=== PATIENT | male | born 1975 | race American Indian/Alaskan Native ===

== ENCOUNTER 2021-01-03 08:55 | Inpatient (IN) | payer MEDICAID ==
--- NOTE | 2021-01-03 09:44 | Emergency Department Report ---
HPI - General Chief Complaint: Weakness Time Seen by Provider: 01/03/21 09:21 - HPI HPI: 45-year-old male with history of hypertension and ESRD on peritoneal dialysis at home who performs self dialysis presents complaining of [place] 1 day of generalized weakness and lightheadedness. He says that he feels globally weak and also has felt faint as if he is about to pass out. He says he has not syncopized or lost consciousness. He denies any his head. He notes that he has had pain in his left calf/leg for the past few months and apparently some doctor told him he might of had a DVT but he is not on blood thinners and was never placed on blood thinners. He says he has a wound near his left pinky toe which is draining purulent material. He otherwise denies any headache, vision change, back pain, chest pain, shortness of breath, abdominal pain, nausea/vomiting, focal weakness, sensory changes, saddle anesthesia, bowel incontinence/retention, or any other complaints. He received the first dose of the Moderna vaccine back in September but never received a second dose and is unable to explain why. His last dialysis was yesterday. ED Past Medical Hx - Past Medical History Hx Renal Disease: Yes - Social History Smoking Status: Current Every Day Smoker ED Review of Systems ROS: Stated complaint: BODY WEAKNESS Other details as noted in HPI Constitutional: weakness. denies: chills, fever Eyes: denies: eye pain, vision change ENT: denies: throat pain, congestion Respiratory: denies: cough, shortness of breath Cardiovascular: denies: chest pain, palpitations, syncope Gastrointestinal: denies: abdominal pain, nausea, vomiting Musculoskeletal: denies: back pain, arthralgia Skin: lesions, pruritus. denies: rash Neurological: denies: headache, weakness, numbness Psychiatric: denies: anxiety, depression Physical Exam - Physical Exam Vital Signs: Vital Signs 01/03/21 09:16 Temperature 98.2 F Pulse Rate 78 Blood Pressure 118/70 Physical Exam: GENERAL: Well developed and well nourished. No acute distress HEAD: Normocephalic. No obvious signs of trauma. ENT: Moist mucous membranes. EYES: Extraocular movements are intact. Pupils are equal round and reactive to light bilaterally NECK: Supple. Full ROM is intact. Trachea is midline. LUNGS: Nonlabored breathing. Equal chest rise bilaterally. Clear to auscultation bilaterally. CARDIOVASCULAR: Regular rate and rhythm. No murmurs or rubs. VASCULAR: Cap refill < 2 seconds. 1+ edema the bilateral lower extremities. ABDOMEN: Peritoneal dialysis catheter is in place without surrounding skin changes or drainage. Abdomen is soft and nondistended. There is no significant tenderness, guarding or rebound. SKIN: Skin is warm and dry. There is diffuse xerosis of the skin with evidence of excoriations throughout. In the intertriginous region between the fifth and the fourth toes of the left foot there is a small sinus which is not actively draining at this time. There is no erythema or warmth of the foot. There is no crepitus. There is no fluctuance. NEURO: Patient is awake, alert, and oriented but seems confused. 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 No focal deficits. Normal motor and sensory exam throughout. Normal speech. MUSCULOSKELETAL: No obvious deformities. No significant tenderness. Normal ROM throughout. BACK/SPINE: No midline tenderness or step-offs of the C/T/L spine. No costovertebral angle tenderness. ED Course Vital Signs 01/03/21 09:16 Temperature 98.2 F Pulse Rate 78 Blood Pressure 118/70 ED Medical Decision Making - Lab Data Result diagrams: 01/03/21 09:46 01/03/21 09:46 Lab Results 01/03/21 01/03/21 01/03/21 Range/Units 09:46 09:46 09:46 WBC 12.0 H (4.5-11.0) K/mm3 RBC 2.47 L (3.65-5.03) M/mm3 Hgb 6.8 L (11.8-15.2) gm/dl Hct 20.2 L (35.5-45.6) % MCV 82 L (84-94) fl MCH 27 L (28-32) pg MCHC 34 (32-34) % RDW 16.6 H (13.2-15.2) % Plt Count 285 (140-440) K/mm3 Lymph % (Auto) 9.9 L (13.4-35.0) % Iron % (Auto) 4.6 (0.0-7.3) % Eos % (Auto) 1.2 (0.0-4.3) % Baso % (Auto) 0.8 (0.0-1.8) % Lymph # (Auto) 1.2 (1.2-5.4) K/mm3 Iron # (Auto) 0.6 (0.0-0.8) K/mm3 Eos # (Auto) 0.1 (0.0-0.4) K/mm3 Baso # (Auto) 0.1 (0.0-0.1) K/mm3 Seg Neutrophils % 83.5 H (40.0-70.0) % Seg Neutrophils # 10.0 H (1.8-7.7) K/mm3 PT 15.5 H (12.2-14.9) Sec. INR 1.18 H (0.87-1.13) APTT 30.9 (24.2-36.6) Sec. Sodium 137 (137-145) mmol/L Potassium 4.3 (3.6-5.0) mmol/L Chloride 88.1 L (98-107) mmol/L Carbon Dioxide 21 L (22-30) mmol/L Anion Gap 32 mmol/L BUN 97 H (9-20) mg/dL Creatinine 24.3 H (0.8-1.3) mg/dL Estimated GFR 2 ml/min BUN/Creatinine Ratio 4 % Glucose 126 H (75-100) mg/dL Calcium 10.1 (8.4-10.2) mg/dL Magnesium 2.70 H (1.7-2.3) mg/dL Total Bilirubin 0.40 (0.1-1.2) mg/dL Direct Bilirubin < 0.2 (0-0.2) mg/dL Indirect Bilirubin 0.2 mg/dL AST 17 (5-40) units/L ALT 8 (7-56) units/L Alkaline Phosphatase 67 (35-129) units/L Ammonia (25-60) umol/L Troponin T 1.710 H* (0.00-0.029) ng/mL Total Protein 7.3 (6.3-8.2) g/dL Albumin 3.4 L (3.9-5) g/dL Albumin/Globulin Ratio 0.9 % Triglycerides 286 H (2-149) mg/dL Cholesterol 242 H (50-199) mg/dL LDL Cholesterol Direct 135 H (50-130) mg/dL HDL Cholesterol < 3 L (40-59) mg/dL Cholesterol/HDL Ratio 80.00 % Lipase 80 H (13-60) units/L Salicylates (2.8-20.0) mg/dL Acetaminophen (10.0-30.0) ug/mL 01/03/21 01/03/21 01/03/21 Range/Units 09:46 09:46 09:46 WBC (4.5-11.0) K/mm3 RBC (3.65-5.03) M/mm3 Hgb (11.8-15.2) gm/dl Hct (35.5-45.6) % MCV (84-94) fl MCH (28-32) pg MCHC (32-34) % RDW (13.2-15.2) % Plt Count (140-440) K/mm3 Lymph % (Auto) (13.4-35.0) % Iron % (Auto) (0.0-7.3) % Eos % (Auto) (0.0-4.3) % Baso % (Auto) (0.0-1.8) % Lymph # (Auto) (1.2-5.4) K/mm3 Iron # (Auto) (0.0-0.8) K/mm3 Eos # (Auto) (0.0-0.4) K/mm3 Baso # (Auto) (0.0-0.1) K/mm3 Seg Neutrophils % (40.0-70.0) % Seg Neutrophils # (1.8-7.7) K/mm3 PT (12.2-14.9) Sec. INR (0.87-1.13) APTT (24.2-36.6) Sec. Sodium (137-145) mmol/L Potassium (3.6-5.0) mmol/L Chloride (98-107) mmol/L Carbon Dioxide (22-30) mmol/L Anion Gap mmol/L BUN (9-20) mg/dL Creatinine (0.8-1.3) mg/dL Estimated GFR ml/min BUN/Creatinine Ratio % Glucose (75-100) mg/dL Calcium (8.4-10.2) mg/dL Magnesium (1.7-2.3) mg/dL Total Bilirubin (0.1-1.2) mg/dL Direct Bilirubin (0-0.2) mg/dL Indirect Bilirubin mg/dL AST (5-40) units/L ALT (7-56) units/L Alkaline Phosphatase (35-129) units/L Ammonia 11.0 L (25-60) umol/L Troponin T (0.00-0.029) ng/mL Total Protein (6.3-8.2) g/dL Albumin (3.9-5) g/dL Albumin/Globulin Ratio % Triglycerides (2-149) mg/dL Cholesterol (50-199) mg/dL LDL Cholesterol Direct (50-130) mg/dL HDL Cholesterol (40-59) mg/dL Cholesterol/HDL Ratio % Lipase (13-60) units/L Salicylates < 0.3 L (2.8-20.0) mg/dL Acetaminophen < 5.0 L (10.0-30.0) ug/mL - EKG Data -: EKG Interpreted by Me - EKG Data 01/03/21 17:16 Normal sinus rhythm. Normal axis. Normal intervals. No ectopy. LVH with se condary repolarization abnormalities. There is no significant ST segment or T wave abnormalities - Radiology Data CHEST 1 VIEW 01/03/2021 9:48 AM INDICATION / CLINICAL INFORMATION: weakness. COMPARISON: None available. FINDINGS: SUPPORT DEVICES: None. HEART / MEDIASTIN UM: No significant abnormality. LUNGS / PLEURA: No significant pulmonary or pleural abnormality. No pneumothorax. ADDITIONAL FINDINGS: No significant additional findings. IMPRESSION: 1. No acute findings. Signer Name: Logan Wei DO Signed: 01/03/2021 9:49 AM Workstation Name: [id number] CT head/brain wo con INDICATION: weakness, confusion. TECHNIQUE: All CT scans at this location are performed using CT dose reduction for ALARA by means of automated exposure control. COMPARISON: None available. FINDINGS: There is no evidence of hemorrhage, hydrocephalus, brain edema, or mass effect/mass lesion. There is a chronic left ALONSO territory infarct. There is mild global atrophy greater than expected for the patient's age. The included paranasal sinuses and mastoid air cells are clear. The orbits appear unremarkable. IMPRESSION: 1. No acute findings. Signer Name: Roger Silva MD Signed: 01/03/2021 9:38 AM Workstation Name: [id number] LEFT FOOT 2 VIEWS INDICATION: wound, eval for gas. COMPARISON: None. IMPRESSION: No acute osseous or soft tissue abnormality. No soft tissue gas is detected. Moderate osteoarthritic changes are noted at the first metatarsophalangeal joint. There are diffuse vascular calcifications suggesting peripheral vascular disease. Signer Name: Abdirahman Montoya Jr, MD Signed: 01/03/2021 9:52 AM Workstation Name: [id number] DUPLEX DOPPLER LOWER EXTREMITY VEINS, BILATERAL INDICATION / CLINICAL INFORMATION: Possible DVT, bilateral lower extremity pain. TECHNIQUE: Duplex doppler imaging was performed through the veins of both lower extremities using venous compression and other maneuvers. COMPARISON: None available. FINDINGS: RIGHT COMMON FEMORAL VEIN: Negative. RIGHT FEMORAL VEIN: Negative. RIGHT POPLITEAL VEIN: Negative. RIGHT CALF VEINS: Negative. LEFT COMMON FEMORAL VEIN: Negative. LEFT FEMORAL VEIN: Negative. LEFT POPLITEAL VEIN: Negative. LEFT CALF VEINS: Negative. ADDITIONAL FINDINGS: None. IMPRESSION: 1. No sonographic evidence for DVT in either lower extremity. Signer Name: Fernie Fish MD Signed: 01/03/2021 12:36 PM Workstation Name: [id number] - Medical Decision Making 45-year-old male with history of ESRD on peritoneal dialysis presents complaining of 1 day of generalized weakness and lightheadedness. Patient feels faint but has not syncopized. Initial assessment he is afebrile and with normal vital signs. Although the patient is alert and oriented x4 he does seem confused. Physical examination reveals no abdominal tenderness and the peritoneal dialysis catheter is in place without surrounding erythema or drainage of the insertion site. Is 1+ pitting edema of the bilateral lower extremities. He is noted to have his diffuse xerosis of the skin with obvious excoriations which I suspect is related to his chronic kidney disease. To the intertriginous region between the fourth and fifth digits of the left pinky is a small sinus which is not actively drain in at this time. There is no erythema, warmth, or fluctuance and no crepitus of the foot. We will perform broad work- up with a full set of labs, EKG, chest x-ray, and CT of the head. We will also obtain bilateral venous ultrasounds to assess for evidence of DVT. We will obtain x-ray of the left foot to assess for evidence of gas or any other abnormalities to explain the patient's intertriginous sinus. At 10:23 AM, the patient's labs have partially resulted and are significant for white blood cell count of 12.0 and anemia with hemoglobin of 6.8. He is noted to have elevated BUN of 97 but his creatinine has not yet returned. After this finding I went and reassessed the patient and his vitals remained stable. I asked further questions regarding the patient's stool and he does confirm that he has had dark tarry stools for the past few days. Rectal exam was performed with Robbie the nurse present as a drain cleaner plumber and reveals grossly melanotic stool which is Hemoccult positive. Given suspicion for GI bleed I have ordered 80 mg of IV Protonix and consulted GI. At 10:55 AM, the patient is resting comfortably in the bed. At 11:10 AM, the patient's labs are notable for positive troponin of 1.7. Patient's EKG shows only LVH associated changes but given this high troponin value, even in the face of ESRD on dialysis, we will consult cardiology for further recommendations. The patient's creatinine is significantly elevated at 24.3 with BUN of 97. I suspect that his mental status change and lightheadedness may be a result of his uremia. I asked the patient again and he confirmed that he has not had any chest pain, shortness of breath, palpitations, nausea/vomiting. At 11:13 AM I spoke with Dr. Sosa of gastroenterology regarding the case. He recommends proceeding with transfusion of 1 unit of PRBCs and will see the patient. Transfusion orders placed. Consult order placed. At 11:25 AM I spoke with Skip Sheldon, the PA for Dr. Blevins regarding the case. He personally reviewed the EKG and agrees with my interpretation. Consult order has been placed. At 11:30 AM I spoke with Dr. Mejia of nephrology regarding the case. He states that the patient has an issue with compliance with his home peritoneal dialysis and he suspects this may be a contributing factor given his uremia and greatly elevated creatinine. He says he will place further orders for the patient. Consult order has been placed. CT of the head reveals no acute abnormality. Chest x-ray is clear. X-ray of the left foot reveals no evidence of gas or injury. Bilateral DVT ultrasounds are negative. At 11:42 AM I spoke with Dr. Garrett, the on-call hospitalist regarding the case and he accepts the patient for admission and will assume care. I spoke with Dr. Blevins around 12:15 PM. He has reviewed the EKG and the case and states that although the patient's troponin is very high, he does not recommend heparinization at this time given that we suspect the patient has a GI bleed. Consult order has been placed. They will provide further inpatient recommendations. All of the diagnostic findings were discussed with the patient as well as the plan for admission for further work-up and management. He expressed understanding agreement with the plan of care. Critical Care Time: Yes Critical care time in (mins) excluding proc time.: 80 Critical care attestation.: If time is entered above; I have spent that time in minutes in the direct care of this critically ill patient, excluding procedure time. Critical care time was spent in the evaluation, work-up, and management of critical anemia and GI bleed requiring blood transfusion, NSTEMI with elevated troponin requiring consultation and discussion between multiple specialists, and critical uremia with acute on chronic renal failure requiring consultation between multiple specialists and initiation of peritoneal dialysis as well as multiple reassessments and reevaluations. ED Disposition Clinical Impression: NSTEMI (non-ST elevated myocardial infarction), End-stage renal disease on peritoneal dialysis, Uremia, Draining cutaneous sinus tract, Left foot pain GI bleed Qualifiers: GI bleed type/associated pathology: melena Qualified Code(s): K92.1 - Melena Anemia Qualifiers: Anemia type: unspecified type Qualified Code(s): D64.9 - Anemia, unspecified Disposition: 09 OP ADMIT IP TO THIS HOSP Is pt being admited?: Yes Condition: Serious
[2021-01-03 10:02] LABS: Basophils # (Auto) 0.1 K/mm3 (0.0-0.1); Basophils % (Auto) 0.8 % (0.0-1.8); Eosinophils # (Auto) 0.1 K/mm3 (0.0-0.4); Eosinophils % (Auto) 1.2 % (0.0-4.3); Hematocrit 20.2 % (35.5-45.6); Hemoglobin 6.8 gm/dl (11.8-15.2); Lymphocytes # (Auto) 1.2 K/mm3 (1.2-5.4); Lymphocytes % (Auto) 9.9 % (13.4-35.0); Mean Corpuscular HGB Conc 34 % (32-34); Mean Corpuscular Volume 82 fl (84-94); Monocytes # (Auto) 0.6 K/mm3 (0.0-0.8); Monocytes % (Auto) 4.6 % (0.0-7.3); Platelet Count 285 K/mm3 (140-440); Red Blood Count 2.47 M/mm3 (3.65-5.03); Red Cell Distribution Width 16.6 % (13.2-15.2)
[2021-01-03 10:20] LABS: Alanine Aminotransferase 8 units/L (7-56); Albumin 3.4 g/dL (3.9-5); Blood Urea Nitrogen 97 mg/dL (9-20); Calcium 10.1 mg/dL (8.4-10.2); Hemolysis Index 2
[2021-01-03 10:21] LABS: INR 1.18 (0.87-1.13); Partial Thromboplastin Time 30.9 Sec. (24.2-36.6)
--- NOTE | 2021-01-03 10:43 | Cat Scan Report ---
CT head/brain wo con INDICATION: weakness, confusion. TECHNIQUE: All CT scans at this location are performed using CT dose reduction for ALARA by means of automated e xposure control. COMPARISON: None available. FINDINGS: There is no evidence of hemorrhage, hydrocephalus, brain edema, or mass effect/mass lesion. There is a chronic left ALONSO territory infarct. There is mild global atrophy greater than expected for the hanh ent's age. The included paranasal sinuses and mastoid air cells are clear. The orbits appear unremark able. IMPRESSION: 1. No acute findings. Signer Name: Roger Silva MD Signed: 01/03/2021 10:38 AM Workstation Name: [id number]
[2021-01-03] MEDS ORDERED: PANTOPRAZOLE 40 MG INJ IV ONE ×2 (10:44→13:56)
--- NOTE | 2021-01-03 10:54 | XRay Report ---
CHEST 1 VIEW 01/03/2021 9:48 AM INDICATION / CLINICAL INFORMATION: weakness. COMPARISON: None available. FINDINGS: SUPPORT DEVICES: None. HEART / MEDIASTINUM: No significant abnormality. LUNGS / PLEURA: No significant pulmonary or pleural abnormality. No pneumothorax. ADDITIONAL FINDINGS: No significant additional findings. IMPRESSION: 1. No acute findings. Signer Name: Logan Wei DO Signed: 01/03/2021 10:49 AM Workstation Name: [id number]
--- NOTE | 2021-01-03 10:56 | XRay Report ---
LEFT FOOT 2 VIEWS INDICATION: wound, eval for gas. COMPARISON: None. IMPRESSION: No acute osseous or soft tissue abnormality. No soft tissue gas is detected. Moderate osteoarthritic changes are noted at the first metatarsophalangeal joint. There are diffuse vascular calcifications suggesting peripheral vascular disease. Signer Name: Abdirahman Montoya Jr, MD Signed: 01/03/2021 10:52 AM Workstation Name: [id number]
[2021-01-03 11:10] LABS: BUN/Creatinine Ratio 4; Bilirubin,Direct < 0.2 mg/dL (0-0.2)
[2021-01-03] MEDS ORDERED: SODIUM CHLORIDE 0.9% 500 ML 500 ML IV ONE (11:12)
[2021-01-03 11:26] LABS: LDL Cholesterol,Direct 135 mg/dL (50-130)
[2021-01-03 11:38] LABS: HDL Cholesterol < 3 mg/dL (40-59)
--- NOTE | 2021-01-03 11:43 | History and Physical Report ---
History of Present Illness Chief complaint: I have not been feeling good lately History of present illness: 45 YO Male with HTN, ESRD on Peritoneal Dialysis, Nicotine Dependence presents to ED for evaluation. Patient reports "I have not been feeling good lately". Patient states that he has experienced generalized weakness, lightheadedness, and feeling as though he were about to pass out over the past 1 day. Patient also reports left foot soreness. EMS was notified and upon arrival the patient was found to be in distress and subsequently transported to [facility] for further care and evaluation of the aforementioned symptoms. The patient was seen and evaluated in the emergency department. All lab and imaging studies reviewed. Patient found to have end-stage renal disease in need of peritoneal dialysis, systemic inflammatory response syndrome, as well as presyncope. Patient also found to have elevated cardiac enzymes which is consistent with type II non-ST elevation TN. Cardiology team consulted in ED. Patient treated with IV fluid resuscitation therapy and empiric IV antibiotic therapy. Patient placed in observation status and admitted to telemetry. Patient denies fever, chills, chest pain, palpitation, productive cough, skin rash, recent ill contacts, or known exposure to COVID-19. No prior admission for review. No medication listed at time of admission for reconciliation. Past History Past Medical History: ESRD, hypertension Past Surgical History: Other (Peritoneal dialysis catheter placement) Social history: smoking Family history: hypertension Medications and Allergies Allergies Allergy/AdvReac Type Severity Reaction Status Date / Time No Known Allergies Allergy Unverified 01/03/21 10:34 Review of Systems Constitutional: weakness, no weight loss, no weight gain, no fever, no chills Ears, nose, mouth and throat: no ear pain, no ear discharge, no tinnitis, no nose pain Cardiovascular: no chest pain, no orthopnea, no palpitations, no rapid/irregular heart beat Respiratory: no cough, no excessive sputum, no hemoptysis Gastrointestinal: no abdominal pain, no nausea, no vomiting, no diarrhea, no constipation Genitourinary Male: no hematuria, no flank pain, no discharge, no urinary frequency, no urinary hesitancy Rectal: no pain, no incontinence, no bleeding Musculoskeletal: no neck stiffness, no neck pain, no low back pain, no shooting leg pain Integumentary: no rash, no redness, no sores, no wounds, no jaundice, no boils Neurological: no head injury, no numbness, no tingling, no seizures, no tremors Psychiatric: no anxiety, no change in sleep habits, no insomnia, no change in appetite, no suicidal ideation, no disorientation Endocrine: no cold intolerance, no polyphagia, no polydipsia, no nocturia, no excessive sweating, no weight change Hematologic/Lymphatic: no easy bruising, no lymphadenopathy Allergic/Immunologic: no urticaria, no allergic rhinitis, no persistent infections, no anaphylaxis Exam - Constitutional Vitals: Temp Pulse Resp BP Pulse Ox 98.2 F 76 18 117/70 100 01/03/21 09:16 01/03/21 10:01 01/03/21 10:32 01/03/21 10:01 01/03/21 10:32 General appearance: Present: mild distress, cachectic - EENT Eyes: Present: PERRL ENT: hearing intact, clear oral mucosa - Neck Neck: Present: supple, normal ROM - Respiratory Respiratory effort: normal Respiratory: bilateral: CTA - Cardiovascular Heart Sounds: Present: S1 & S2. Absent: rub, click - Extremities Extremities: pulses symmetrical, No edema Peripheral Pulses: within normal limits - Abdominal General gastrointestinal: Present: soft, non-tender, non-distended, normal bowel sounds Male genitourinary: Present: normal - Integumentary Integumentary: Present: clear, warm, dry - Musculoskeletal Musculoskeletal: gait normal, strength equal bilaterally - Psychiatric Psychiatric: appropriate mood/affect, intact judgment & insight - Neurologic Neurologic: CNII-XII intact, moves all extremities HEART Score - HEART Score Troponin: Troponin T 1.710 ng/mL (0.00-0.029) H* 01/03/21 09:46 Results - Labs CBC & Chem 7: 01/03/21 09:46 01/03/21 09:46 Labs: Abnormal lab results 01/03/21 01/03/21 01/03/21 Range/Units 09:46 09:46 09:46 WBC 12.0 H (4.5-11.0) K/mm3 RBC 2.47 L (3.65-5.03) M/mm3 Hgb 6.8 L (11.8-15.2) gm/dl Hct 20.2 L (35.5-45.6) % MCV 82 L (84-94) fl MCH 27 L (28-32) pg RDW 16.6 H (13.2-15.2) % Lymph % (Auto) 9.9 L (13.4-35.0) % Seg Neutrophils % 83.5 H (40.0-70.0) % Seg Neutrophils # 10.0 H (1.8-7.7) K/mm3 PT 15.5 H (12.2-14.9) Sec. INR 1.18 H (0.87-1.13) Chloride 88.1 L (98-107) mmol/L Carbon Dioxide 21 L (22-30) mmol/L BUN 97 H (9-20) mg/dL Creatinine 24.3 H (0.8-1.3) mg/dL Glucose 126 H (75-100) mg/dL Magnesium 2.70 H (1.7-2.3) mg/dL Ammonia (25-60) umol/L Troponin T 1.710 H* (0.00-0.029) ng/mL Albumin 3.4 L (3.9-5) g/dL Triglycerides 286 H (2-149) mg/dL Cholesterol 242 H (50-199) mg/dL LDL Cholesterol Direct 135 H (50-130) mg/dL HDL Cholesterol < 3 L (40-59) mg/dL Lipase 80 H (13-60) units/L Salicylates (2.8-20.0) mg/dL Acetaminophen (10.0-30.0) ug/mL 01/03/21 01/03/21 01/03/21 Range/Units 09:46 09:46 09:46 WBC (4.5-11.0) K/mm3 RBC (3.65-5.03) M/mm3 Hgb (11.8-15.2) gm/dl Hct (35.5-45.6) % MCV (84-94) fl MCH (28-32) pg RDW (13.2-15.2) % Lymph % (Auto) (13.4-35.0) % Seg Neutrophils % (40.0-70.0) % Seg Neutrophils # (1.8-7.7) K/mm3 PT (12.2-14.9) Sec. INR (0.87-1.13) Chloride (98-107) mmol/L Carbon Dioxide (22-30) mmol/L BUN (9-20) mg/dL Creatinine (0.8-1.3) mg/dL Glucose (75-100) mg/dL Magnesium (1.7-2.3) mg/dL Ammonia 11.0 L (25-60) umol/L Troponin T (0.00-0.029) ng/mL Albumin (3.9-5) g/dL Triglycerides (2-149) mg/dL Cholesterol (50-199) mg/dL LDL Cholesterol Direct (50-130) mg/dL HDL Cholesterol (40-59) mg/dL Lipase (13-60) units/L Salicylates < 0.3 L (2.8-20.0) mg/dL Acetaminophen < 5.0 L (10.0-30.0) ug/mL Assessment and Plan - Patient Problems (1) NSTEMI (non-ST elevated myocardial infarction) Current Visit: Yes Status: Acute Plan to address problem: Type II NSTEMI: Cardiology team consulted in ED, serial cardiac enzymes, EKG, echocardiogram, supportive care, further care and evaluation as per cardiology team. (2) End-stage renal disease on peritoneal dialysis Current Visit: Yes Status: Chronic Plan to address problem: Nephrology team consulted in ED, dialysis as per renal team, avoid nephrotoxic agent. (3) Left foot pain Current Visit: Yes Status: Acute Plan to address problem: X-ray left foot, wound care consult placed in ED. Patient counseled regarding personal hygiene as well as foot care. (4) General weakness Current Visit: Yes Status: Acute Plan to address problem: Supportive care, encourage increased protein intake. (5) Malnutrition of moderate degree (Lee: 60% to less than 75% of standard weight) Current Visit: Yes Status: Acute Plan to address problem: Increase her protein intake, dietary segmentation. (6) DVT prophylaxis Current Visit: Yes Status: Acute Plan to address problem: SCDs bilateral lower extremities while in bed, patient is ambulatory.
[2021-01-03] MEDS ORDERED: ALBUTEROL 2.5 MG/3 ML NEBU IH PRN (13:00)
[2021-01-03] MEDS ORDERED: oxyCODONE /ACETAMINOPHEN 5-325MG TAB PO PRN (13:00)
[2021-01-03] MEDS ORDERED: ACETAMINOPHEN 325 MG TAB PO PRN (13:00)
[2021-01-03] MEDS ORDERED: HYDROmorphone 1 MG/1 ML INJ IV PRN (13:00)
--- NOTE | 2021-01-03 13:41 | Vascular Lab Report ---
DUPLEX DOPPLER LOWER EXTREMITY VEINS, BILATERAL INDICATION / CLINICAL INFORMATION: Possible DVT, bilateral lower extremity pain. TECHNIQUE: Duplex doppler imaging was performed through the veins of both lower extremities using venous selam raissa and other maneuvers. COMPARISON: None available. FINDINGS: RIGHT COMMON FEMORAL VEIN: Negative. RIGHT FEMORAL VEIN: Negative. RIGHT POPLITEAL VEIN: Negative. RIGHT CALF VEINS: Negative. LEFT COMMON FEMORAL VEIN: Negative. LEFT FEMORAL VEIN: Negative. LEFT POPLITEAL VEIN: Negative. LEFT CALF VEINS: Negative. ADDITIONAL FINDINGS: None. IMPRESSION: 1. No sonographic evidence for DVT in either lower extremity. Signer Name: Fernie Fish MD Signed: 01/03/2021 1:36 PM Workstation Name: [id number]
[2021-01-03] MEDS ORDERED: SODIUM CHLORIDE 0.9% 500 ML 500 ML ONE (13:54)
[2021-01-03] MEDS ORDERED: ONDANSETRON 4 MG/2 ML INJ IV PRN (14:00)
--- NOTE | 2021-01-03 14:23 | Consultation ---
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 He is previously unknown to our practice. Patient presents to [facility] ER with chief complaint of left foot tingling patient states was similar to his previous CVA event patient does report splinter/injury to fifth tarsal of left foot. Initial labs revealed severe anemia (hemoglobin 6.8). Patient endorses black tarry stools and bright red blood per rectum over past several days. Cardiology is consulted for NSTEMI/elevated troponins. Patient has no cardiac complaints. Patient denies any loss of consciousness. Patient denies any shortness of breath, chest pain, abdominal pain, N/V/D, recent illness or known exposures. Patient states last dialysis was yesterday, he performs peritoneal dialysis at home every day. He endorses tobacco use half pack per day, denies EtOH or recreational drugs. He has received first dose of Covid vaccine series. Past History Past Medical History: other (see HPI) Medications and Allergies Allergies Allergy/AdvReac Type Severity Reaction Status Date / Time No Known Allergies Allergy Unverified 01/03/21 10:34 Active Meds: Active Medications Acetaminophen (Acetaminophen 325 Mg Tab) 650 mg PO Q4H PRN PRN Reason: Pain MILD(1-3)/Fever >100.5/BARRERA Albuterol (Albuterol 2.5 Mg/3 Ml Nebu) 2.5 mg IH Q4HRT PRN PRN Reason: Shortness Of Breath Hydromorphone HCl (Hydromorphone 1 Mg/1 Ml Inj) 0.5 mg IV Q12H PRN PRN Reason: Pain , Severe (7-10) Ondansetron HCl (Ondansetron 4 Mg/2 Ml Inj) 4 mg IV Q8H PRN PRN Reason: Nausea And Vomiting Oxycodone/Acetaminophen (Oxycodone /Acetaminophen 5-325mg Tab) 1 tab PO Q12H PRN PRN Reason: Pain, Moderate (4-6) Sodium Chloride (Sodium Chloride 0.9% 10 Ml Flush Syringe) 10 ml IV BID SHI Sodium Chloride (Sodium Chloride 0.9% 10 Ml Flush Syringe) 10 ml IV PRN PRN PRN Reason: LINE FLUSH Review of Systems Constitutional: no weight loss, no weight gain, no fever, no chills, no sweats, no night sweats Ears, nose, mouth and throat: no ear pain, no nose pain, no nasal congestion, no nasal discharge Cardiovascular: lightheadedness, no chest pain, no orthopnea, no palpitations, no rapid/irregular heart beat, no edema, no syncope, no shortness of breath, no dyspnea on exertion, no paroxysmal nocturnal dyspnea Respiratory: no cough, no hemoptysis, no shortness of breath, no dyspnea on exertion Gastrointestinal: no abdominal pain, no nausea, no vomiting, no diarrhea Genitourinary Male: no flank pain Musculoskeletal: leg numbness/tingling, no neck stiffness, no neck pain, no shooting arm pain, no arm numbness/tingling, no low back pain, no shooting leg pain Integumentary: sores (Patient reports purulent discharge from wound in foot), wounds, no rash, no pruritis, no redness Neurological: weakness, no head injury, no paralysis, no parathesias, no numbness, no tingling, no seizures, no syncope Psychiatric: no anxiety Endocrine: no cold intolerance, no heat intolerance Hematologic/Lymphatic: no easy bruising, no easy bleeding Allergic/Immunologic: no urticaria Physical Examination Last Vital Signs Temp 98.2 F 01/03/21 09:16 Pulse 78 01/03/21 13:01 Resp 15 01/03/21 13:01 BP 116/74 01/03/21 13:01 Pulse Ox 100 01/03/21 13:01 General appearance: no acute distress HEENT: Positive: PERRL, Normocephaly, Mucus Membranes Moist Neck: Positive: neck supple, trachea midline Cardiac: Positive: Reg Rate and Rhythm, S1/S2 Lungs: Positive: Normal Exam, Normal Breath Sounds Neuro: Positive: Grossly Intact, Weakness Abdomen: Positive: Unremarkable, Soft Skin: Negative: Rash Musculoskeletal: No Pain Extremities: Present: upper extr. pulses, lower extr. pulses. Absent: edema Results 01/03/21 09:46 01/03/21 09:46 Cardiac Enzymes 01/03/21 Range/Units 09:46 AST 17 (5-40) units/L Coagulation 01/03/21 Range/Units 09:46 PT 15.5 H (12.2-14.9) Sec. INR 1.18 H (0.87-1.13) APTT 30.9 (24.2-36.6) Sec. Lipids 01/03/21 Range/Units 09:46 Triglycerides 286 H (2-149) mg/dL Cholesterol 242 H (50-199) mg/dL HDL Cholesterol < 3 L (40-59) mg/dL Cholesterol/HDL Ratio 80.00 % CBC 01/03/21 Range/Units 09:46 WBC 12.0 H (4.5-11.0) K/mm3 RBC 2.47 L (3.65-5.03) M/mm3 Hgb 6.8 L (11.8-15.2) gm/dl Hct 20.2 L (35.5-45.6) % Plt Count 285 (140-440) K/mm3 Lymph # (Auto) 1.2 (1.2-5.4) K/mm3 [place] # (Auto) 0.6 (0.0-0.8) K/mm3 Eos # (Auto) 0.1 (0.0-0.4) K/mm3 Baso # (Auto) 0.1 (0.0-0.1) K/mm3 Comprehensive Metabolic Panel 01/03/21 Range/Units 09:46 Sodium 137 (137-145) mmol/L Potassium 4.3 (3.6-5.0) mmol/L Chloride 88.1 L (98-107) mmol/L Carbon Dioxide 21 L (22-30) mmol/L BUN 97 H (9-20) mg/dL Creatinine 24.3 H (0.8-1.3) mg/dL Glucose 126 H (75-100) mg/dL Calcium 10.1 (8.4-10.2) mg/dL Direct Bilirubin < 0.2 (0-0.2) mg/dL Indirect Bilirubin 0.2 mg/dL AST 17 (5-40) units/L ALT 8 (7-56) units/L Alkaline Phosphatase 67 (35-129) units/L Total Protein 7.3 (6.3-8.2) g/dL Albumin 3.4 L (3.9-5) g/dL - Imaging and Cardiology Echo: pending, report reviewed (Echocardiogram 10/06/2018: LVEF 65 to 70%. LV normal size. Severe LVH. Grade 1 diastolic dysfunction. RV SF is normal. LA mildly dilated. Mild AV insufficiency.) EKG: report reviewed, image reviewed EKG interpretations - Telemetry EKG Rhythm: Sinus Rhythm - EKG Sinus rhythms and dysrhythmias: sinus rhythm Assessment and Plan NSTEMI suspect type II in setting of MELANIA/CKD * Patient is currently chest pain-free. Troponins are elevated but trending downwards mildly. We will continue to trend CE's. Suspect elevated troponin due to supply demand mismatch in setting of chronic renal disease. * Echocardiogram 10/06/2018: LVEF 65 to 70%. LV normal size. Severe LVH. Grade 1 diastolic dysfunction. RV SF is normal. LA mildly dilated. Mild AV insufficiency. Repeat echocardiogram is pending * Lexiscan 10/06/2018: Negative for reversible ischemia. EF 53% * Optimize antihyperlipidemic regimen: Initiate atorvastatin 80 mg nightly. Severe anemia * Patient endorses recent black tarry stools and BRBPR. Initial labs reveal hemoglobin of 6.8. Patient is currently scheduled to receive PRBC transfusion. GI is consulted. * No anticoagulation due to significant risk of bleeding event DVT prophylaxis * No AC due to anemia Echocardiogram is pending. Continue trending CE's. Will follow This patient was seen in conjunction with Dr Blevins who agrees with this assess ment and plan of care. - Patient Problems (1) NSTEMI (non-ST elevated myocardial infarction) Current Visit: Yes Status: Acute (2) Anemia Current Visit: Yes Status: Acute (3) End-stage renal disease on peritoneal dialysis Current Visit: Yes Status: Chronic (4) General weakness Current Visit: Yes Status: Acute (5) Tobacco use Current Visit: Yes Status: Chronic (6) DVT prophylaxis Current Visit: Yes Status: Acute (7) GI bleed Current Visit: Yes Status: Suspected
[2021-01-03] MEDS ORDERED: VANCOMYCIN/NS 1 GM/250 ML 1 GM/250 ML BAG IV ONE (17:26)
--- NOTE | 2021-01-03 17:57 | Event Note ---
Date: 01/03/21 Discussed patient with ER staff, chart reviewed. reported black stools prior to arrival, h/o esrd on PD, severe anemia on admission. unclear baseline labs as first time here. vital signs are stable (normal bp/hr per chart). will plan for egd tomorrow. monitor H/H, transfuse as indicated (> 7, transfusion pending). if signs of overt bleeding overnight, recommend CTA/bleeding scan. please call for any overt bleeding/changes overnight.
--- NOTE | 2021-01-03 18:01 | Gastroenterology Consultation ---
History of Present Illness - Reason for Consult Consult date: 01/03/21 anemia Requesting physician: KIEL DRAPER - History of Present Illness The patient is a 45 yo aam with h/o esrd on pd, presenting with "lower leg infection" and generalized weakness. pt poor historian so history mainly obtained from chart review. also discussed with pt's electric clock mechanic (Dr Mejia). pt has had chronically dark stools for months, on phosphate binders, denies abd pain. previously on epogen, stopped due to normal h/h, had repeat labs couple weeks ago with hgb in mid 7's. plan was to restart epogen. presents with severe anemia. denies nsaid's. no n/v. Past History Past Medical History: other (see HPI) Past Surgical History: Other (Peritoneal dialysis catheter placement) Social history: smoking Family history: hypertension Medications and Allergies Allergies Allergy/AdvReac Type Severity Reaction Status Date / Time No Known Allergies Allergy Unverified 01/03/21 10:34 Active Meds: Active Medications Acetaminophen (Acetaminophen 325 Mg Tab) 650 mg PO Q4H PRN PRN Reason: Pain MILD(1-3)/Fever >100.5/BARRERA Albuterol (Albuterol 2.5 Mg/3 Ml Nebu) 2.5 mg IH Q4HRT PRN PRN Reason: Shortness Of Breath Hydromorphone HCl (Hydromorphone 1 Mg/1 Ml Inj) 0.5 mg IV Q12H PRN PRN Reason: Pain , Severe (7-10) Last Admin: 01/03/21 14:27 Dose: 0.5 mg Documented by: Vancomycin HCl (Vancomycin/Ns 1 Gm/250 Ml) 1 gm in 250 mls @ 167.007 mls/hr IV ONCE ONE; Protocol Stop: 01/03/21 18:55 Last Admin: 01/03/21 16:09 Dose: 167.007 mls/hr Documented by: Ondansetron HCl (Ondansetron 4 Mg/2 Ml Inj) 4 mg IV Q8H PRN PRN Reason: Nausea And Vomiting Oxycodone/Acetaminophen (Oxycodone /Acetaminophen 5-325mg Tab) 1 tab PO Q12H PRN PRN Reason: Pain, Moderate (4-6) Peritoneal Dialysis Solution (Dialysate Lo Jerald 1.5% Soln 2000 Ml) 2,000 ml IP Q4HR SHI Sodium Chloride (Sodium Chloride 0.9% 10 Ml Flush Syringe) 10 ml IV BID SHI Last Admin: 01/03/21 14:29 Dose: 10 ml Documented by: Sodium Chloride (Sodium Chloride 0.9% 10 Ml Flush Syringe) 10 ml IV PRN PRN PRN Reason: LINE FLUSH reviewed/updated patient's home and current medications. Review of Systems - Review of Systems All systems: negative (per HPI) Exam - Constitutional Vital Signs: Temp Pulse Resp BP Pulse Ox 98.2 F 71 14 125/76 100 01/03/21 09:16 01/03/21 17:31 01/03/21 17:31 01/03/21 17:31 01/03/21 17:31 General appearance: other (nad, chronically ill appearing, appears older then stated age) - Respiratory Respiratory effort: normal Respiratory: bilateral: CTA - Cardiovascular Rhythm: regular Heart Sounds: Present: S1 & S2 Extremities: No edema - Gastrointestinal General gastrointestinal: Present: soft, non-tender, other (+ PD catheter) Rectal Exam: other (dark green, no overt blood) - Integumentary Integumentary: Present: clear, warm - Neurologic Neurological: alert and oriented x3 - Labs CBC & Chem 7: 01/03/21 09:46 01/03/21 09:46 Lab Results: Laboratory Results - last 24 hr 01/03/21 01/03/21 01/03/21 09:46 09:46 09:46 WBC 12.0 H RBC 2.47 L Hgb 6.8 L Hct 20.2 L MCV 82 L MCH 27 L MCHC 34 RDW 16.6 H Plt Count 285 Lymph % (Auto) 9.9 L [place] % (Auto) 4.6 Eos % (Auto) 1.2 Baso % (Auto) 0.8 Lymph # (Auto) 1.2 [place] # (Auto) 0.6 Eos # (Auto) 0.1 Baso # (Auto) 0.1 Seg Neutrophils % 83.5 H Seg Neutrophils # 10.0 H PT 15.5 H INR 1.18 H APTT 30.9 Sodium 137 Potassium 4.3 Chloride 88.1 L Carbon Dioxide 21 L Anion Gap 32 BUN 97 H Creatinine 24.3 H Estimated GFR 2 BUN/Creatinine Ratio 4 Glucose 126 H Calcium 10.1 Magnesium 2.70 H Total Bilirubin 0.40 Direct Bilirubin < 0.2 Indirect Bilirubin 0.2 AST 17 ALT 8 Alkaline Phosphatase 67 Ammonia Troponin T 1.710 H* Total Protein 7.3 Albumin 3.4 L Albumin/Globulin Ratio 0.9 Triglycerides 286 H Cholesterol 242 H LDL Cholesterol Direct 135 H HDL Cholesterol < 3 L Cholesterol/HDL Ratio 80.00 Lipase 80 H Salicylates Acetaminophen Blood Type Antibody Screen Crossmatch 01/03/21 01/03/21 01/03/21 09:46 09:46 09:46 WBC RBC Hgb Hct MCV MCH MCHC RDW Plt Count Lymph % (Auto) [place] % (Auto) Eos % (Auto) Baso % (Auto) Lymph # (Auto) [place] # (Auto) Eos # (Auto) Baso # (Auto) Seg Neutrophils % Seg Neutrophils # PT INR APTT Sodium Potassium Chloride Carbon Dioxide Anion Gap BUN Creatinine Estimated GFR BUN/Creatinine Ratio Glucose Calcium Magnesium Total Bilirubin Direct Bilirubin Indirect Bilirubin AST ALT Alkaline Phosphatase Ammonia 11.0 L Troponin T Total Protein Albumin Albumin/Globulin Ratio Triglycerides Cholesterol LDL Cholesterol Direct HDL Cholesterol Cholesterol/HDL Ratio Lipase Salicylates < 0.3 L Acetaminophen < 5.0 L Blood Type Antibody Screen Crossmatch 01/03/21 01/03/21 13:08 13:12 WBC RBC Hgb Hct MCV MCH MCHC RDW Plt Count Lymph % (Auto) [place] % (Auto) Eos % (Auto) Baso % (Auto) Lymph # (Auto) [place] # (Auto) Eos # (Auto) Baso # (Auto) Seg Neutrophils % Seg Neutrophils # PT INR APTT Sodium Potassium Chloride Carbon Dioxide Anion Gap BUN Creatinine Estimated GFR BUN/Creatinine Ratio Glucose Calcium Magnesium Total Bilirubin Direct Bilirubin Indirect Bilirubin AST ALT Alkaline Phosphatase Ammonia Troponin T 1.590 H* Total Protein Albumin Albumin/Globulin Ratio Triglycerides Cholesterol LDL Cholesterol Direct HDL Cholesterol Cholesterol/HDL Ratio Lipase Salicylates Acetaminophen Blood Type A POSITIVE Antibody Screen Negative Crossmatch See Detail Assessment and Plan 1. Anemia with heme positive stool - dark green/brown stool on rectal. suspect anemia of chronic disease, no overt bleeding at present time. will monitor/conservative management from gi stand point unless change in clinical course. transfuse as indicated (hgb > 7).
[2021-01-04] MEDS ORDERED: SODIUM CHLORIDE 0.9% 500 ML 500 ML ONE (00:51)
[2021-01-04] MEDS: DIALYSATE LO CAL 1.5% SOLN 2000 ML IP SCH ×4 (03:52→17:30)
--- NOTE | 2021-01-04 08:51 | Consultation ---
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 Patient is on peritoneal dialysis. Patient's mother a few months ago and since then he has not been doing too well. He has not been compliant with his peritoneal dialysis. His phosphorus has been elevated due to poor compliance with his diet and his phosphorus binders. He has not looked good either. He has been counseled but unfortunately has not improved. On his most recent dialysis clinic visit, he was noted to have a significant decrease in his hemoglobin. Patient was restarted on erythropoietin which had been held when his hemoglobin increased to more than 12 g/dL. He denied any bleeding at that time. He did admit to black stools which were attributed to his phosphorus binder Auryxia which is iron based. He has also had an infection of his foot for which he has been seeing the panel fitter Patient states he started feeling weak about 3 days prior to admission and had dizzy spells but no syncopal episode. He denies any fever or chills. His foot was getting worse by the panel fitter. His stools were still black and he admits to having blood in his stools for 3 days prior to hospitalization. At presentation, hemoglobin was 6.7 g/dl. Unfortunately, he did not start erythropoietin when he was asked to because his supplies in his refrigerator had to be discarded as the refrigerator was not functioning. Patient receiving packed red blood cell transfusions. BUN/creatinine were also quite elevated at 97/24.3 mg/dL in keeping with his noncompliance with his dialysis treatment. I am consulted to provide dialysis and to manage his fluid and electrolyte abnormalities. Past History Past Medical History: ESRD, hypertension, hyperlipidemia Past Surgical History: Other (Peritoneal dialysis catheter placement) Social history: lives with family, other (Disabled). denies: smoking, alcohol abuse, prescription drug abuse, IV drug use Family history: hypertension, other (Mother had hypertension, chronic kidney disease and following a severe cerebrovascular accident.) Medications and Allergies Allergies Allergy/AdvReac Type Severity Reaction Status Date / Time No Known Allergies Allergy Unverified 01/03/21 10:34 Home Medications Medication Instructions Recorded Confirmed Last Taken Type B Complex 11/Folic/C/Biot/Zinc 1 each PO DAILY #30 01/05/21 Unknown Rx [Dialyvite with Zinc Tablet] Calcitriol 0.5 mcg PO DAILY #30 01/05/21 Unknown Rx Colace CAP 100 mg DAILY 01/05/21 01/05/21 01/03/21 History Dialysate Lo Jerald 1.5% Soln 2,000 ml IP Q4H bag 01/05/21 Unknown Rx [Dianeal Low Calcium W/1.5% Dextrose] NIFEdipine [Afeditab Cr] 60 mg PO BID #60 01/05/21 Unknown Rx Velphoro (Nf) 1,500 mg PO TID 01/05/21 01/05/21 01/03/21 08:00 History carvediloL [Coreg] 25 mg PO BID #60 01/05/21 Unknown Rx carvediloL [Coreg] 25 mg PO BID@0800,1700 tablet 01/05/21 Unknown Rx hydrALAZINE [Apresoline TAB] 100 mg PO BID #60 tab 01/05/21 Unknown Rx Active Meds: Active Medications Acetaminophen (Acetaminophen 325 Mg Tab) 650 mg PO Q4H PRN PRN Reason: Pain MILD(1-3)/Fever >100.5/BARRERA Albuterol (Albuterol 2.5 Mg/3 Ml Nebu) 2.5 mg IH Q4HRT PRN PRN Reason: Shortness Of Breath Hydromorphone HCl (Hydromorphone 1 Mg/1 Ml Inj) 0.5 mg IV Q12H PRN PRN Reason: Pain , Severe (7-10) Last Admin: 01/03/21 14:27 Dose: 0.5 mg Documented by: Ondansetron HCl (Ondansetron 4 Mg/2 Ml Inj) 4 mg IV Q8H PRN PRN Reason: Nausea And Vomiting Oxycodone/Acetaminophen (Oxycodone /Acetaminophen 5-325mg Tab) 1 tab PO Q12H PRN PRN Reason: Pain, Moderate (4-6) Peritoneal Dialysis Solution (Dialysate Lo Jerald 1.5% Soln 2000 Ml) 2,000 ml IP Q4HR SHI Last Admin: 01/04/21 03:52 Dose: 2,000 ml Documented by: Sodium Chloride (Sodium Chloride 0.9% 10 Ml Flush Syringe) 10 ml IV BID SHI Last Admin: 01/03/21 14:29 Dose: 10 ml Documented by: Sodium Chloride (Sodium Chloride 0.9% 10 Ml Flush Syringe) 10 ml IV PRN PRN PRN Reason: LINE FLUSH Review of Systems All systems: negative (As noted in history of present illness) Exam - Vital Signs Vital signs: Vital Signs Temp Pulse BP 98.2 F 84 118/70 01/03/21 09:16 01/03/21 09:16 01/03/21 09:16 - Physical Exam Narrative exam: Middle-aged -[place] male looking disheveled in no acute distress HEENT: NCAT, pale conjunctiva Neck: Supple, no venous distention CVS: S1S2 RRR with no murmur, rub or gallop Chest: Clear to auscultation Abdomen: Protuberant, soft, nontender, no organomegaly, bowel sounds are present Extremities: No edema, dressing foot Genitourinary deferred Skin warm and dry Neuro: Awake, alert no focal deficits Results - Lab Results 01/05/21 11:57 01/05/21 05:04 Most recent lab results Calcium 10.1 mg/dL (8.4-10.2) 01/03/21 09:46 Magnesium 2.70 mg/dL (1.7-2.3) H 01/03/21 09:46 Assessment and Plan - Patient Problems (1) Anemia associated with acute blood loss Current Visit: Yes Status: Acute Plan to address problem: Follow-up hemoglobin. Being managed by underground heavy equipment operator (2) Anemia in chronic kidney disease (CKD) Current Visit: Yes Status: Acute Plan to address problem: Continue erythropoietin and iron supplements on dialysis. (3) Hyperphosphatemia Current Visit: Yes Status: Acute Plan to address problem: Reinforced low phosphorus diet and adherence to binders. Emphasized importance of getting this controlled to avoid calciphylaxis and widespread calcification of blood vessels and heart. I suspect the mitral valve lesion is related to hyperphosphatemia and calcification. (4) Left foot pain Current Visit: Yes Status: Acute Plan to address problem: Continue management by panel fitter. Follow-up cultures (5) Malnutrition of moderate degree (Lee: 60% to less than 75% of standard weight) Current Visit: Yes Status: Acute Plan to address problem: Nutritional supplementation (6) Uremia Current Visit: Yes Status: Acute Plan to address problem: Secondary to missed dialysis treatments. Intensive peritoneal dialysis and francisca se follow-up (7) End-stage renal disease on peritoneal dialysis Current Visit: Yes Status: Chronic Plan to address problem: Nonadherence to dialysis treatments at home. Intensive dialysis treatments in [facility] and follow-up levels
--- NOTE | 2021-01-04 10:49 | Progress Note ---
Assessment and Plan Assessment and plan: NSTEMI Anemia ESRD on peritoneal dialysis Left foot pain Generalized weakness Moderate protein calorie malnutrition 01/04/2021. Patient is currently chest pain-free. Troponins were elevated but trending downward. Ischemic evaluation per cardiology likely with stress test in a.m. Lexiscan in September 2018 was negative for ischemia. Echocardiogram 10/06/2018: LVEF 65 to 70%. LV normal size. Severe LVH. Grade 1 diastolic dysfunction. RV SF is normal. LA mildly dilated. Mild AV insufficiency. Repeat echocardiogram is pending. Cardiology following. Patient with heme positive stool and s/p 1 unit PRBCs. Follow-up CBC. Await GI decision regarding endoscopy History Interval history: No new issues overnight. Hospitalist Physical - Constitutional Vitals: Temp Pulse Resp BP Pulse Ox 98.0 F 83 18 168/99 100 01/04/21 07:38 01/04/21 07:38 01/04/21 07:38 01/04/21 07:38 01/04/21 07:38 General appearance: Present: no acute distress - EENT Eyes: Present: PERRL, EOM intact ENT: hearing intact, clear oral mucosa, dentition normal - Neck Neck: Present: supple, normal ROM - Respiratory Respiratory effort: normal Respiratory: bilateral: CTA - Cardiovascular Rhythm: regular Heart Sounds: Present: S1 & S2. Absent: gallop, rub - Extremities Extremities: no ischemia, No edema, Full ROM - Abdominal General gastrointestinal: soft, non-tender, non-distended, normal bowel sounds - Integumentary Integumentary: Present: clear, warm, dry - Neurologic Neurologic: CNII-XII intact, moves all extremities HEART Score - HEART Score Troponin: Troponin T 1.590 ng/mL (0.00-0.029) H* 01/03/21 13:08 Results - Labs CBC & Chem 7: 01/03/21 09:46 01/03/21 09:46 Labs: Laboratory Last Values WBC 12.0 K/mm3 (4.5-11.0) H 01/03/21 09:46 RBC 2.47 M/mm3 (3.65-5.03) L 01/03/21 09:46 Hgb 6.8 gm/dl (11.8-15.2) L 01/03/21 09:46 Hct 20.2 % (35.5-45.6) L 01/03/21 09:46 MCV 82 fl (84-94) L 01/03/21 09:46 MCH 27 pg (28-32) L 01/03/21 09:46 MCHC 34 % (32-34) 01/03/21 09:46 RDW 16.6 % (13.2-15.2) H 01/03/21 09:46 Plt Count 285 K/mm3 (140-440) 01/03/21 09:46 Lymph % (Auto) 9.9 % (13.4-35.0) L 01/03/21 09:46 Scott % (Auto) 4.6 % (0.0-7.3) 01/03/21 09:46 Eos % (Auto) 1.2 % (0.0-4.3) 01/03/21 09:46 Baso % (Auto) 0.8 % (0.0-1.8) 01/03/21 09:46 Lymph # (Auto) 1.2 K/mm3 (1.2-5.4) 01/03/21 09:46 Scott # (Auto) 0.6 K/mm3 (0.0-0.8) 01/03/21 09:46 Eos # (Auto) 0.1 K/mm3 (0.0-0.4) 01/03/21 09:46 Baso # (Auto) 0.1 K/mm3 (0.0-0.1) 01/03/21 09:46 Seg Neutrophils % 83.5 % (40.0-70.0) H 01/03/21 09:46 Seg Neutrophils # 10.0 K/mm3 (1.8-7.7) H 01/03/21 09:46 PT 15.5 Sec. (12.2-14.9) H 01/03/21 09:46 INR 1.18 (0.87-1.13) H 01/03/21 09:46 APTT 30.9 Sec. (24.2-36.6) 01/03/21 09:46 Sodium 137 mmol/L (137-145) 01/03/21 09:46 Potassium 4.3 mmol/L (3.6-5.0) 01/03/21 09:46 Chloride 88.1 mmol/L (98-107) L 01/03/21 09:46 Carbon Dioxide 21 mmol/L (22-30) L 01/03/21 09:46 Anion Gap 32 mmol/L 01/03/21 09:46 BUN 97 mg/dL (9-20) H 01/03/21 09:46 Creatinine 24.3 mg/dL (0.8-1.3) H 01/03/21 09:46 Estimated GFR 2 ml/min 01/03/21 09:46 BUN/Creatinine Ratio 4 % 01/03/21 09:46 Glucose 126 mg/dL (75-100) H 01/03/21 09:46 Calcium 10.1 mg/dL (8.4-10.2) 01/03/21 09:46 Magnesium 2.70 mg/dL (1.7-2.3) H 01/03/21 09:46 Total Bilirubin 0.40 mg/dL (0.1-1.2) 01/03/21 09:46 Direct Bilirubin < 0.2 mg/dL (0-0.2) 01/03/21 09:46 Indirect Bilirubin 0.2 mg/dL 01/03/21 09:46 AST 17 units/L (5-40) 01/03/21 09:46 ALT 8 units/L (7-56) 01/03/21 09:46 Alkaline Phosphatase 67 units/L (35-129) 01/03/21 09:46 Ammonia 11.0 umol/L (25-60) L 01/03/21 09:46 Troponin T 1.590 ng/mL (0.00-0.029) H* 01/03/21 13:08 Total Protein 7.3 g/dL (6.3-8.2) 01/03/21 09:46 Albumin 3.4 g/dL (3.9-5) L 01/03/21 09:46 Albumin/Globulin Ratio 0.9 % 01/03/21 09:46 Triglycerides 286 mg/dL (2-149) H 01/03/21 09:46 Cholesterol 242 mg/dL (50-199) H 01/03/21 09:46 LDL Cholesterol Direct 135 mg/dL (50-130) H 01/03/21 09:46 HDL Cholesterol < 3 mg/dL (40-59) L 01/03/21 09:46 Cholesterol/HDL Ratio 80.00 % 01/03/21 09:46 Lipase 80 units/L (13-60) H 01/03/21 09:46 Salicylates < 0.3 mg/dL (2.8-20.0) L 01/03/21 09:46 Acetaminophen < 5.0 ug/mL (10.0-30.0) L 01/03/21 09:46 Blood Type A POSITIVE 01/03/21 13:12 Antibody Screen Negative 01/03/21 13:12 Crossmatch See Detail 01/03/21 13:12 Microbiology: Microbiology 01/03/21 10:15 Stool Stool Occult Blood (MALIK) - Final Active Medications - Current Medications Current Medications: Generic Name Dose Route Start Last Admin Trade Name Popq PRN Reason Stop Dose Admin Acetaminophen 650 mg 01/03/21 13:00 Acetaminophen 325 Mg Tab PO Q4H PRN Pain MILD(1-3)/Fever >100.5/BARRERA Albuterol 2.5 mg 01/03/21 13:00 Albuterol 2.5 Mg/3 Ml Nebu IH Q4HRT PRN Shortness Of Breath Hydromorphone HCl 0.5 mg 01/03/21 13:00 01/03/21 14:27 Hydromorphone 1 Mg/1 Ml Inj IV 0.5 mg Q12H PRN Administration Pain , Severe (7-10) Ondansetron HCl 4 mg 01/03/21 14:00 Ondansetron 4 Mg/2 Ml Inj IV Q8H PRN Nausea And Vomiting Oxycodone/Acetaminophen 1 tab 01/03/21 13:00 Oxycodone /Acetaminophen 5-325mg Tab PO Q12H PRN Pain, Moderate (4-6) Peritoneal Dialysis Solution 2,000 ml 01/03/21 18:00 01/04/21 09:37 Dialysate Lo Jerald 1.5% Soln 2000 Ml IP 2,000 ml Q4HR SHI Administration Sodium Chloride 10 ml 01/03/21 13:00 01/04/21 09:36 Sodium Chloride 0.9% 10 Ml Flush Syringe IV 10 ml BID SHI Administration Sodium Chloride 10 ml 01/03/21 13:00 Sodium Chloride 0.9% 10 Ml Flush Syringe IV PRN PRN LINE FLUSH
[2021-01-04 11:40] LABS: Basophils % (Auto) 0.4 % (0.0-1.8); Eosinophils # (Auto) 0.2 K/mm3 (0.0-0.4); Eosinophils % (Auto) 1.7 % (0.0-4.3); Hematocrit 24.1 % (35.5-45.6); Lymphocytes # (Auto) 1.6 K/mm3 (1.2-5.4); Lymphocytes % (Auto) 12.8 % (13.4-35.0); Mean Corpuscular HGB Conc 33 % (32-34); Mean Corpuscular Volume 83 fl (84-94); Monocytes # (Auto) 1.1 K/mm3 (0.0-0.8); Monocytes % (Auto) 8.9 % (0.0-7.3); Platelet Count 258 K/mm3 (140-440); Red Blood Count 2.91 M/mm3 (3.65-5.03)
[2021-01-04 11:45] LABS: Calcium 9.7 mg/dL (8.4-10.2)
--- NOTE | 2021-01-04 12:24 | Electrocardiograph Report ---
[facility] Test Date: 2021-01-03 Test Time: 10:51:26 Pat Name: MELANIE GOINS Department: Room: A485 1 Gender: M Warp Drawer: [phone] : [phone] Requested By: KIEL DRAPER Order Number: [id number] Reading MD: Clemencia Bacon Measurements Intervals [place] Rate: 73 P: 60 [place]: 135 QRS: 85 QRSD: 104 T: 9 QT: 420 QTc: 464 Interpretive Statements Sinus rhythm Probable left atrial enlargement LVH with secondary repolarization abnormality Probable anterior infarct, age indeterminate No previous ECG available for comparison Electronically Signed On 01-04-2021 12:23:50 EDT by Clemencia Bacon
[2021-01-04] MEDS ORDERED: SODIUM CHLORIDE 0.9% 1000 ML 1,000 ML IV SCH (13:00)
--- NOTE | 2021-01-04 13:11 | Progress Note ---
Assessment and Plan NSTEMI suspect type II in setting of MELANIA/CKD * Patient is currently chest pain-free. Troponins are elevated but trending downwards mildly. We will continue to trend CE's. Suspect elevated troponin due to supply demand mismatch in setting of chronic renal disease. * Echocardiogram 10/06/2018: LVEF 65 to 70%. LV normal size. Severe LVH. Grade 1 diastolic dysfunction. RV SF is normal. LA mildly dilated. Mild AV insufficiency. * Repeat echocardiogram preliminary report shows echodensity on MV and possible vegetation. Ordered blood cultures. Scheduled YASH for AM. Patient NPO after midnight * Lexiscan 10/06/2018: Negative for reversible ischemia. EF 53% * Optimize antihyperlipidemic regimen: continue atorvastatin 80 mg nightly. Severe anemia * Patient endorses recent black tarry stools and BRBPR. Initial labs reveal hemoglobin of 6.8. Patient received PRBC transfusion. Current Hgb is 8.0. GI is consulted. * No anticoagulation due to significant risk of bleeding event DVT prophylaxis * No AC due to anemia Echocardiogram preliminary report shows echodensity on MV and possible vegetation. Scheduled YASH fro AM. Patient NPO after midnight. Will follow This patient was seen in conjunction with Dr Blevins who agrees with this assessment and plan of care. - Patient Problems (1) Anemia Current Visit: Yes Status: Acute Qualifiers: Anemia type: unspecified type Qualified Code(s): D64.9 - Anemia, unspecified (2) DVT prophylaxis Current Visit: Yes Status: Acute (3) General weakness Current Visit: Yes Status: Acute (4) NSTEMI (non-ST elevated myocardial infarction) Current Visit: Yes Status: Acute (5) End-stage renal disease on peritoneal dialysis Current Visit: Yes Status: Chronic (6) Tobacco use Current Visit: Yes Status: Chronic (7) GI bleed Current Visit: Yes Status: Suspected Subjective Date of service: 01/04/21 Principal diagnosis: NSTEMI type 2 Interval history: Patient resting in bed. No events overnight Objective Last Vital Signs Temp 98.0 F 01/04/21 07:38 Pulse 83 01/04/21 07:38 Resp 18 01/04/21 07:38 BP 168/99 01/04/21 07:38 Pulse Ox 99 01/04/21 10:00 - Physical Examination General: No Apparent Distress HEENT: Positive: PERRL, Normocephaly, Mucus Membranes Moist Neck: Positive: neck supple, trachea midline Cardiac: Positive: Reg Rate and Rhythm Lungs: Positive: Normal Breath Sounds Neuro: Positive: Grossly Intact, Weakness Abdomen: Positive: Unremarkable, Soft Skin: Negative: Rash Musculoskeletal: No Pain Extremities: Present: upper extr. pulses, lower extr. pulses. Absent: edema - Labs and Meds CBC 01/04/21 Range/Units 10:39 WBC 12.7 H (4.5-11.0) K/mm3 RBC 2.91 L (3.65-5.03) M/mm3 Hgb 8.0 L (11.8-15.2) gm/dl Hct 24.1 L (35.5-45.6) % Plt Count 258 (140-440) K/mm3 Lymph # (Auto) 1.6 (1.2-5.4) K/mm3 [place] # (Auto) 1.1 H (0.0-0.8) K/mm3 Eos # (Auto) 0.2 (0.0-0.4) K/mm3 Baso # (Auto) 0.0 (0.0-0.1) K/mm3 Comprehensive Metabolic Panel 01/04/21 Range/Units 10:39 Sodium 138 (137-145) mmol/L Potassium 4.3 (3.6-5.0) mmol/L Chloride 90.3 L (98-107) mmol/L Carbon Dioxide 22 (22-30) mmol/L BUN 105 H (9-20) mg/dL Creatinine 24.4 H (0.8-1.3) mg/dL Glucose 101 H (75-100) mg/dL Calcium 9.7 (8.4-10.2) mg/dL - Imaging and Cardiology EKG: report reviewed, image reviewed Echo: pending, report reviewed (Echocardiogram 10/06/2018: LVEF 65 to 70%. LV normal size. Severe LVH. Grade 1 diastolic dysfunction. RV SF is normal. LA mildly dilated. Mild AV insufficiency.) - Telemetry EKG Rhythm: Sinus Rhythm - EKG Sinus rhythms and dysrhythmias: sinus rhythm
--- NOTE | 2021-01-04 14:46 | Anesthesia Consultation ---
Anesthesia Consult and Med Hx Date of service: 01/04/21 - Airway Anesthetic Teeth Evaluation: Good ROM Head & Neck: Adequate Mental/Hyoid Distance: Adequate Mallampati Class: Class I Intubation Access Assessment: Probably Good - Pulmonary Exam CTA: Yes - Pre-Operative Health Status ASA Pre-Surgery Classification: ASA3 Proposed Anesthetic Plan: MAC - Pulmonary Hx Smoking: Yes (06/19 ppd) Hx Asthma: No COPD: No Hx Pneumonia: No - Cardiovascular System Hx Hypertension: Yes Hx Heart Attack/AMI: Yes - Central Nervous System Hx Seizures: No CVA: Yes (2014- Bilateral weakness) - Gastrointestinal Hx Ulcer: Yes (GI bleed) - Endocrine Hx Renal Disease: Yes Hx End Stage Renal Disease: Yes Hx Liver Disease: No Hx Non-Insulin Dependent Diabetes: No Hx Thyroid Disease: No - Hematic Hx Anemia: Yes - Other Systems Hx Alcohol Use: No Hx Substance Use: Yes (Marijuana) Hx Obesity: No - Additional Comments Anesthesia Medical History Comments: Patient denied previous anesthesia complications
--- NOTE | 2021-01-04 14:51 | Anesthesia Day of Surgery ---
Anesthesia Day of Surgery - Day of Surgery Patient Examined: Yes Patient H&P Reviewed: Yes Patient is NPO: Yes Beta Blockers: No Cardiac Clearance: No Pulmonary Clearance: No Kentrell's Test: N/A
[2021-01-04] MEDS ORDERED: LIDOCAINE MPF (2%) 20 MG/1 ML VIAL 5 ML ONE (14:52)
[2021-01-04] MEDS ORDERED: ONDANSETRON 4 MG/2 ML INJ ONE (14:52)
[2021-01-04] MEDS ORDERED: fentaNYL 100 MCG/2 ML INJ ONE (14:52)
[2021-01-04] MEDS ORDERED: propofoL 200 MG/20 ML VIAL IV ONE (14:53)
--- NOTE | 2021-01-04 15:05 | Operative Report ---
Operative Report Operative Report: Esophagogastroduodenoscopy Procedure Note Date of procedure: 01/04/2021 Endoscopist: German Sosa Pre-op diagnosis/indication: Melena, anemia Post-op diagnosis: Patchy gastritis MEDICATIONS: MAC COMPLICATIONS: No immediate complications ESTIMATED BLOOD LOSS: None DESCRIPTION OF PROCEDURE: After consent was obtained, the patient was placed in the left lateral decubitis position. The olympus endoscope was inserted into the patient's mouth under direct vision and advanced to the 2nd portion of the duodenum without difficulty. The patient tolerated the procedure well. The views of the mucosa were good. The patient's vital signs were monitored continuously throughout the procedure. FINDINGS: The esophagus appeared normal. Patchy, mildly friable mucosa in the antrum of the stomach. No high risk bleeding lesions. The duodenum appeared normal. IMPRESSION: 1. Patchy erythematous mucosa in the antrum. No high risk bleeding stigmata/lesions. RECOMMENDATIONS: -can resume diet from gi stand point. monitor labs (appropriate response to blood transfusion). f/u with clinical nurse educator as outpatient to restart epogen ( see consult note regarding details). -f/u in gi clinic in 2-3 weeks
[2021-01-04] MEDS ORDERED: GLYCOPYRROLATE 0.4 MG/2 ML INJ ONE (15:10)
--- NOTE | 2021-01-04 17:25 | Post Anesthesia Evaluation ---
- Post Anesthesia Evaluation Patient Participated: Yes Airway Patent: Yes Stable Respiratory Function: Yes Nausea/Vomiting: No Temp > 96.8F: Yes Pain Manageable: Yes Adequeate Hydration: Yes Anesthesia Complications: No
[2021-01-05] MEDS: DIALYSATE LO CAL 1.5% SOLN 2000 ML IP SCH ×9 (00:21→20:15)
[2021-01-05 05:35] LABS: Calcium 9.4 mg/dL (8.4-10.2)
[2021-01-05] MEDS ORDERED: BENZOCAINE 20% TOP SPRAY 0.5 ML UNIT DOSE MM NR (08:00)
[2021-01-05] MEDS ORDERED: SODIUM CHLORIDE 0.9% 500 ML 500 ML IV SCH (08:00)
--- NOTE | 2021-01-05 08:03 | Discharge Summary ---
Providers - Providers Date of Admission: 01/04/21 16:45 Date of discharge: 01/06/21 Attending physician: JETT ALVAREZ 01/03/21 11:35 Consult to Physician [CONS] Stat Comment: Consulting Provider: MONY HAMPTON Physician Instructions: Reason For Exam: GI Bleed 01/03/21 11:36 Consult to Physician [CONS] Routine Comment: Consulting Provider: GLEN GRIER Physician Instructions: Reason For Exam: uremia, acute on chronic renal failure 01/03/21 11:37 Consult to Physician [CONS] Stat Comment: Consulting Provider: SHIRA URBINA Physician Instructions: Reason For Exam: positive troponin 01/03/21 14:55 Consult to Wound/ET Nurse [CONS] Routine Reason For Exam: wound eval Primary care physician: SCRUB TECHNICIAN Hospitalization Reason for admission: anemia, cp Condition: Serious Hospital course: This patient is a 45-year-old male with a significant history of end-stage renal disease on peritoneal dialysis, hypertension, medication noncompliance, hyperlipidemia, anemia, 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 Initial labs revealed severe anemia (hemoglobin 6.8). Patient endorses black tarry stools and bright red blood per rectum over past several days. The patient was admitted with diagnosis of melena, elevated troponin, anemia and ESRD on peritoneal dialysis. GI was consulted and recommended endoscopy with findings revealing normal esophagus and Patchy, mildly friable mucosa in the antrum of the stomach. No high risk bleeding lesions. The duodenum appeared normal. GI felt patient could resume diet and discharge from their standpoint. Cardiology was also consulted for elevated troponins. Cardiology suspected that troponin elevation was related to supply demand mismatch in the setting of chronic renal disease. Echocardiogram was completed and revealed echodensity on the mitral valve and possible vegetation. Therefore, patient is to undergo YASH today and if found to be negative will discharge home. Dedicated discharge time 35 minutes Disposition: DC-01 TO HOME OR SELFCARE Final Discharge Diagnosis (Prints w/discharge instructions): Anemia, ESRD, elevated troponin and Patchy erythematous mucosa in the antrum. Core Measure Documentation - Palliative Care Palliative Care/ Comfort Measures: Not Applicable - Core Measures Any of the following diagnoses?: none Exam - Constitutional Vitals: Temp Pulse Resp BP Pulse Ox 98.4 F 88 16 154/100 99 01/05/21 03:03 01/05/21 03:03 01/05/21 03:03 01/05/21 03:03 01/05/21 03:03 General appearance: Present: no acute distress, well-nourished - EENT Eyes: Present: PERRL ENT: hearing intact, clear oral mucosa - Neck Neck: Present: supple, normal ROM - Respiratory Respiratory effort: normal Respiratory: bilateral: CTA - Cardiovascular Heart Sounds: Present: S1 & S2. Absent: rub, click - Extremities Extremities: pulses symmetrical, No edema Peripheral Pulses: within normal limits - Abdominal General gastrointestinal: Present: soft, non-tender, non-distended, normal bowel sounds Male genitourinary: Present: normal - Integumentary Integumentary: Present: clear, warm, dry - Musculoskeletal Musculoskeletal: gait normal, strength equal bilaterally - Psychiatric Psychiatric: appropriate mood/affect, intact judgment & insight - Neurologic Neurologic: CNII-XII intact, moves all extremities Plan Activity: advance as tolerated Weight Bearing Status: Weight Bear as Tolerated Diet: regular Follow up with: PRIMARY CARE, [Primary Care Provider] - 7 Days Prescriptions: NIFEdipine [Afeditab Cr] 60 mg PO BID #60 hydrALAZINE [Apresoline TAB] 100 mg PO BID #60 tab Calcitriol 0.5 mcg PO DAILY #30 carvediloL [Coreg] 25 mg PO BID #60 B Complex 11/Folic/C/Biot/Zinc [Dialyvite with Zinc Tablet] 1 each PO DAILY #30
[2021-01-05] MEDS: carvediloL 25 MG TAB PO SCH ×3 (08:10→18:22)
[2021-01-05] MEDS: hydrALAZINE 100 MG TAB PO SCH ×3 (08:10→22:02)
[2021-01-05] MEDS ORDERED: propofoL 200 MG/20 ML VIAL IV ONE ×2 (08:11)
--- NOTE | 2021-01-05 08:32 | Anesthesia Day of Surgery ---
Anesthesia Day of Surgery - Day of Surgery Patient Examined: Yes Patient H&P Reviewed: Yes Patient is NPO: Yes
--- NOTE | 2021-01-05 08:54 | Progress Note ---
Assessment and Plan - Patient Problems (1) Anemia associated with acute blood loss Current Visit: Yes Status: Acute Plan to address problem: Follow-up hemoglobin. Being managed by heat and vent aircraft mechanic (2) Anemia in chronic kidney disease (CKD) Current Visit: Yes Status: Acute Plan to address problem: Continue erythropoietin and iron supplements on dialysis. (3) Hyperphosphatemia Current Visit: Yes Status: Acute Plan to address problem: Reinforced low phosphorus diet and adherence to binders. Emphasized importance of getting this controlled to avoid calciphylaxis and widespread calcification of blood vessels and heart. I suspect the mitral valve lesion is related to hyperphosphatemia and calcification. Follow-up YASH (4) Left foot pain Current Visit: Yes Status: Acute Plan to address problem: Continue management by carpet loom fixer. Follow-up cultures (5) Malnutrition of moderate degree (Lee: 60% to less than 75% of standard weight) Current Visit: Yes Status: Acute Plan to address problem: Nutritional supplementation (6) Uremia Current Visit: Yes Status: Acute Plan to address problem: Secondary to missed dialysis treatments. Intensive peritoneal dialysis and close follow-up (7) End-stage renal disease on peritoneal dialysis Current Visit: Yes Status: Chronic Plan to address problem: Nonadherence to dialysis treatments at home. Intensive dialysis treatments in the hospital and follow-up levels Subjective Date of service: 01/05/21 Principal diagnosis: NSTEMI type 2 Interval history: Patient seen in echo lab about to have YASH. He has no new complaints. Objective - Exam Narrative Exam: Middle-aged -[place] male looking disheveled in no acute distress HEENT: NCAT, pale conjunctiva Neck: Supple, no venous distention CVS: S1S2 RRR with no murmur, rub or gallop Chest: Clear to auscultation Abdomen: Protuberant, soft, nontender, no organomegaly, bowel sounds are present Extremities: No edema, dressing foot Genitourinary deferred Skin warm and dry Neuro: Awake, alert no focal deficits - Vital Signs Vital signs: Vital Signs - 12hr 01/04/21 01/04/21 01/05/21 21:29 22:42 02:00 Temperature 97.7 F Pulse Rate 90 100 H Pulse Rate [ Intra-Procedure ] Pulse Rate [Pre -Procedure] Respiratory 18 Rate Respiratory Rate [Intra- Procedure] Respiratory Rate [Pre- Procedure] Blood Pressure 151/92 Blood Pressure [Intra- Procedure] Blood Pressure [Pre-Procedure] O2 Sat by Pulse 100 99 Oximetry O2 Sat by Pulse Oximetry [ Intra-Procedure ] O2 Sat by Pulse Oximetry [Pre- Procedure] 01/05/21 01/05/21 01/05/21 03:03 08:00 08:28 Temperature 98.4 F Pulse Rate 88 Pulse Rate [ Intra-Procedure ] Pulse Rate [Pre 73 72 -Procedure] Respiratory 16 Rate Respiratory Rate [Intra- Procedure] Respiratory 20 20 Rate [Pre- Procedure] Blood Pressure 154/100 Blood Pressure [Intra- Procedure] Blood Pressure 177/100 166/99 [Pre-Procedure] O2 Sat by Pulse 99 Oximetry O2 Sat by Pulse Oximetry [ Intra-Procedure ] O2 Sat by Pulse 100 100 Oximetry [Pre- Procedure] 01/05/21 08:34 Temperature Pulse Rate Pulse Rate [ 83 Intra-Procedure ] Pulse Rate [Pre -Procedure] Respiratory Rate Respiratory 18 Rate [Intra- Procedure] Respiratory Rate [Pre- Procedure] Blood Pressure Blood Pressure 200/115 [Intra- Procedure] Blood Pressure [Pre-Procedure] O2 Sat by Pulse Oximetry O2 Sat by Pulse 100 Oximetry [ Intra-Procedure ] O2 Sat by Pulse Oximetry [Pre- Procedure] - Lab 01/05/21 11:57 01/05/21 05:04 Most recent lab results Calcium 9.4 mg/dL (8.4-10.2) 01/05/21 05:04 Phosphorus 12.20 mg/dL (2.5-4.5) H 01/05/21 05:04 Magnesium 2.70 mg/dL (1.7-2.3) H 01/03/21 09:46 Medications & Allergies - Medications Allergies/Adverse Reactions: Allergies No Known Allergies Allergy (Unverified 01/03/21 10:34) Home Medications: Home Medications Medication Instructions Recorded Confirmed Last Taken Type B Complex 11/Folic/C/Biot/Zinc 1 each PO DAILY #30 01/05/21 Unknown Rx [Dialyvite with Zinc Tablet] Calcitriol 0.5 mcg PO DAILY #30 01/05/21 Unknown Rx Colace CAP 100 mg DAILY 01/05/21 01/05/21 01/03/21 History Dialysate Lo Jerald 1.5% Soln 2,000 ml IP Q4H bag 01/05/21 Unknown Rx [Dianeal Low Calcium W/1.5% Dextrose] NIFEdipine [Afeditab Cr] 60 mg PO BID #60 01/05/21 Unknown Rx Velphoro (Nf) 1,500 mg PO TID 01/05/21 01/05/21 01/03/21 08:00 History carvediloL [Coreg] 25 mg PO BID #60 01/05/21 Unknown Rx carvediloL [Coreg] 25 mg PO BID@0800,1700 tablet 01/05/21 Unknown Rx hydrALAZINE [Apresoline TAB] 100 mg PO BID #60 tab 01/05/21 Unknown Rx Active Medications: Generic Name Dose Route Start Last Admin Trade Name Freq PRN Reason Stop Dose Admin Acetaminophen 650 mg 01/03/21 13:00 Acetaminophen 325 Mg Tab PO Q4H PRN Pain MILD(1-3)/Fever >100.5/BARRERA Albuterol 2.5 mg 01/03/21 13:00 Albuterol 2.5 Mg/3 Ml Nebu IH Q4HRT PRN Shortness Of Breath Benzocaine 3 spray 01/05/21 08:00 Benzocaine 20% [place] 0.5 Ml Unit Dose MM 01/05/21 12:00 PREOP NR Carvedilol 25 mg 01/05/21 03:00 01/05/21 08:10 Carvedilol 25 Mg Tab PO Not Given BID@0800,1700 SHI Hydralazine HCl 100 mg 01/05/21 03:00 01/05/21 08:10 Hydralazine 100 Mg Tab PO Not Given BID SHI Hydromorphone HCl 0.5 mg 01/03/21 13:00 01/03/21 14:27 Hydromorphone 1 Mg/1 Ml Inj IV 0.5 mg Q12H PRN Administration Pain , Severe (7-10) Sodium Chloride 1,000 mls @ 50 mls/hr 01/04/21 13:00 Nacl 0.9% 1000 Ml IV DIRECT SHI Sodium Chloride 500 mls @ 50 mls/hr 01/05/21 08:00 Nacl 0.9% 500 Ml IV DIRECT SHI Ondansetron HCl 4 mg 01/03/21 14:00 Ondansetron 4 Mg/2 Ml Inj IV Q8H PRN Nausea And Vomiting Oxycodone/Acetaminophen 1 tab 01/03/21 13:00 Oxycodone /Acetaminophen 5-325mg Tab PO Q12H PRN Pain, Moderate (4-6) Peritoneal Dialysis Solution 2,000 ml 01/05/21 04:00 01/05/21 08:10 Dialysate Lo Jerald 1.5% Soln 2000 Ml IP Not Given Q4H SHI Sodium Chloride 10 ml 01/03/21 13:00 01/05/21 00:21 Sodium Chloride 0.9% 10 Ml Flush Syringe IV 10 ml BID SHI Administration Sodium Chloride 10 ml 01/03/21 13:00 Sodium Chloride 0.9% 10 Ml Flush Syringe IV PRN PRN LINE FLUSH
[2021-01-05] MEDS: NIFEdipine XL 60 MG TAB PO SCH ×2 (10:48→22:02)
--- NOTE | 2021-01-05 11:52 | Progress Note ---
Assessment and Plan Assessment and plan: NSTEMI Anemia ESRD on peritoneal dialysis Left foot pain Generalized weakness Moderate protein calorie malnutrition 01/04/2021. Patient is currently chest pain-free. Troponins were elevated but trending downward. Ischemic evaluation per cardiology likely with stress test in a.m. Lexiscan in September 2018 was negative for ischemia. Echocardiogram 10/06/2018: LVEF 65 to 70%. LV normal size. Severe LVH. Grade 1 diastolic dysfunction. RV SF is normal. LA mildly dilated. Mild AV insufficiency. Repeat echocardiogram is pending. Cardiology following. Patient with heme positive stool and s/p 1 unit PRBCs. Follow-up CBC. Await GI decision regarding endoscopy 01/05/2021. Stress test negative. Patient with abnormal YASH that may represent calcification. However, we would like to evaluate blood cultures to rule out endocarditis/vegetation. If blood cultures are negative, anticipate discharge in a.m. History Interval history: No new issues overnight. Hospitalist Physical - Constitutional Vitals: Temp Pulse Resp BP Pulse Ox 98.4 F 78 16 179/94 100 01/05/21 03:03 01/05/21 09:30 01/05/21 09:30 01/05/21 09:30 01/05/21 10:00 General appearance: Present: no acute distress, well-nourished - EENT Eyes: Present: PERRL, EOM intact ENT: hearing intact, clear oral mucosa, dentition normal - Neck Neck: Present: supple, normal ROM - Respiratory Respiratory effort: normal Respiratory: bilateral: CTA - Cardiovascular Rhythm: regular Heart Sounds: Present: S1 & S2. Absent: gallop, rub - Extremities Extremities: no ischemia, No edema, Full ROM - Abdominal General gastrointestinal: soft, non-tender, non-distended, normal bowel sounds - Integumentary Integumentary: Present: clear, warm, dry - Neurologic Neurologic: CNII-XII intact, moves all extremities HEART Score - HEART Score Troponin: Troponin T 1.590 ng/mL (0.00-0.029) H* 01/03/21 13:08 Results - Labs CBC & Chem 7: 01/04/21 10:39 01/05/21 05:04 Labs: Laboratory Last Values WBC 12.7 K/mm3 (4.5-11.0) H 01/04/21 10:39 RBC 2.91 M/mm3 (3.65-5.03) L 01/04/21 10:39 Hgb 8.0 gm/dl (11.8-15.2) L 01/04/21 10:39 Hct 24.1 % (35.5-45.6) L 01/04/21 10:39 MCV 83 fl (84-94) L 01/04/21 10:39 MCH 28 pg (28-32) 01/04/21 10:39 MCHC 33 % (32-34) 01/04/21 10:39 RDW 16.0 % (13.2-15.2) H 01/04/21 10:39 Plt Count 258 K/mm3 (140-440) 01/04/21 10:39 Lymph % (Auto) 12.8 % (13.4-35.0) L 01/04/21 10:39 [place] % (Auto) 8.9 % (0.0-7.3) H 01/04/21 10:39 Eos % (Auto) 1.7 % (0.0-4.3) 01/04/21 10:39 Baso % (Auto) 0.4 % (0.0-1.8) 01/04/21 10:39 Lymph # (Auto) 1.6 K/mm3 (1.2-5.4) 01/04/21 10:39 [place] # (Auto) 1.1 K/mm3 (0.0-0.8) H 01/04/21 10:39 Eos # (Auto) 0.2 K/mm3 (0.0-0.4) 01/04/21 10:39 Baso # (Auto) 0.0 K/mm3 (0.0-0.1) 01/04/21 10:39 Seg Neutrophils % 76.2 % (40.0-70.0) H 01/04/21 10:39 Seg Neutrophils # 9.7 K/mm3 (1.8-7.7) H 01/04/21 10:39 PT 15.5 Sec. (12.2-14.9) H 01/03/21 09:46 INR 1.18 (0.87-1.13) H 01/03/21 09:46 APTT 30.9 Sec. (24.2-36.6) 01/03/21 09:46 Sodium 139 mmol/L (137-145) 01/05/21 05:04 Potassium 4.7 mmol/L (3.6-5.0) 01/05/21 05:04 Chloride 92.1 mmol/L (98-107) L 01/05/21 05:04 Carbon Dioxide 21 mmol/L (22-30) L 01/05/21 05:04 Anion Gap 31 mmol/L 01/05/21 05:04 BUN 89 mg/dL (9-20) H 01/05/21 05:04 Creatinine 28.7 mg/dL (0.8-1.3) H 01/05/21 05:04 Estimated GFR 2 ml/min 01/05/21 05:04 BUN/Creatinine Ratio 3 % 01/05/21 05:04 Glucose 108 mg/dL (75-100) H 01/05/21 05:04 Calcium 9.4 mg/dL (8.4-10.2) 01/05/21 05:04 Phosphorus 12.20 mg/dL (2.5-4.5) H 01/05/21 05:04 Magnesium 2.70 mg/dL (1.7-2.3) H 01/03/21 09:46 Total Bilirubin 0.40 mg/dL (0.1-1.2) 01/03/21 09:46 Direct Bilirubin < 0.2 mg/dL (0-0.2) 01/03/21 09:46 Indirect Bilirubin 0.2 mg/dL 01/03/21 09:46 AST 17 units/L (5-40) 01/03/21 09:46 ALT 8 units/L (7-56) 01/03/21 09:46 Alkaline Phosphatase 67 units/L (35-129) 01/03/21 09:46 Ammonia 11.0 umol/L (25-60) L 01/03/21 09:46 Troponin T 1.590 ng/mL (0.00-0.029) H* 01/03/21 13:08 Total Protein 7.3 g/dL (6.3-8.2) 01/03/21 09:46 Albumin 3.4 g/dL (3.9-5) L 01/03/21 09:46 Albumin/Globulin Ratio 0.9 % 01/03/21 09:46 Triglycerides 286 mg/dL (2-149) H 01/03/21 09:46 Cholesterol 242 mg/dL (50-199) H 01/03/21 09:46 LDL Cholesterol Direct 135 mg/dL (50-130) H 01/03/21 09:46 HDL Cholesterol < 3 mg/dL (40-59) L 01/03/21 09:46 Cholesterol/HDL Ratio 80.00 % 01/03/21 09:46 Lipase 80 units/L (13-60) H 01/03/21 09:46 Salicylates < 0.3 mg/dL (2.8-20.0) L 01/03/21 09:46 Acetaminophen < 5.0 ug/mL (10.0-30.0) L 01/03/21 09:46 Blood Type A POSITIVE 01/03/21 13:12 Antibody Screen Negative 01/03/21 13:12 Crossmatch See Detail 01/03/21 13:12 Microbiology: Microbiology 01/04/21 16:32 Peripheral/Venous Blood Culture - Preliminary Culture in Progress 01/04/21 16:23 Peripheral/Venous Blood Culture - Preliminary Culture in Progress [place]/IV: Voiding Method Toilet Active Medications - Current Medications Current Medications: Generic Name Dose Route Start Last Admin Trade Name Freq PRN Reason Stop Dose Admin Acetaminophen 650 mg 01/03/21 13:00 Acetaminophen 325 Mg Tab PO Q4H PRN Pain MILD(1-3)/Fever >100.5/BARRERA Albuterol 2.5 mg 01/03/21 13:00 Albuterol 2.5 Mg/3 Ml Nebu IH Q4HRT PRN Shortness Of Breath Benzocaine 3 spray 01/05/21 08:00 01/05/21 08:30 Benzocaine 20% Top [place] 0.5 Ml Unit Dose MM 01/05/21 12:00 3 spray PREOP NR Administration Carvedilol 25 mg 01/05/21 03:00 01/05/21 10:47 Carvedilol 25 Mg Tab PO 25 mg BID@0800,1700 SHI Administration Hydralazine HCl 100 mg 01/05/21 03:00 01/05/21 10:47 Hydralazine 100 Mg Tab PO 100 mg BID SHI Administration Hydromorphone HCl 0.5 mg 01/03/21 13:00 01/03/21 14:27 Hydromorphone 1 Mg/1 Ml Inj IV 0.5 mg Q12H PRN Administration Pain , Severe (7-10) Sodium Chloride 1,000 mls @ 50 mls/hr 01/04/21 13:00 Nacl 0.9% 1000 Ml IV DIRECT SHI Sodium Chloride 500 mls @ 50 mls/hr 01/05/21 08:00 01/05/21 08:25 Nacl 0.9% 500 Ml IV 50 mls/hr DIRECT SHI Administration Nifedipine 60 mg 01/05/21 10:00 01/05/21 10:48 Nifedipine Xl 60 Mg Tab PO 60 mg BID SHI Administration Ondansetron HCl 4 mg 01/03/21 14:00 Ondansetron 4 Mg/2 Ml Inj IV Q8H PRN Nausea And Vomiting Oxycodone/Acetaminophen 1 tab 01/03/21 13:00 Oxycodone /Acetaminophen 5-325mg Tab PO Q12H PRN Pain, Moderate (4-6) Peritoneal Dialysis Solution 2,000 ml 01/05/21 04:00 01/05/21 08:10 Dialysate Lo Jerald 1.5% Soln 2000 Ml IP Not Given Q4H SHI Sodium Chloride 10 ml 01/03/21 13:00 01/05/21 10:48 Sodium Chloride 0.9% 10 Ml Flush Syringe IV 10 ml BID SHI Administration Sodium Chloride 10 ml 01/03/21 13:00 Sodium Chloride 0.9% 10 Ml Flush Syringe IV PRN PRN LINE FLUSH Nutrition/Malnutrition Assess - Dietary Evaluation Nutrition/Malnutrition Findings: Nutrition Notes Start: 01/04/21 11:12 Freq: Status: Active Protocol: Document 01/04/21 11:12 DURAN (Rec: 01/04/21 11:13 DURAN [id number]) Nutrition Notes Need for Assessment generated from: two way radio technician,MST Initial or Follow up Brief Note Current Diagnosis CKD (stage V CKD),Hypertension Other Pertinent Diagnosis (L) foot pain, generalized weakness, on PD, NSTEMI Current Diet NPO Labs/Tests reviewed Pertinent Medications reviewed Height 5 ft 11 in Weight 60.8 kg [place] Body Weight (kg) 78.18 BMI 18.6 Weight Status Underweight Subjective/Other Information Pt screened for malnutrition risk (wt loss). Unable to speak to pt today. Burn Absent Trauma Absent Is patient on ventilator? No Is Patient Ambulatory and/or Out of Bed Yes REE-(Tyshawn Carey-ambulatory/OOB) [ 1969.669 [id number]] Calculation Used for Recommendations [place] Additional Notes Pro needs 1.2-1.3g/k-79g/ day Fluid needs per MD Nutrition Intervention Follow-Up By: 01/05/21 Additional Comments F/U: Wt assessment, diet advancement
--- NOTE | 2021-01-05 12:16 | Progress Note ---
Assessment and Plan NSTEMI suspect type II in setting of MELANIA/CKD * Patient is currently chest pain-free. Troponins are elevated but trending downwards mildly. We will continue to trend CE's. Suspect elevated troponin due to supply demand mismatch in setting of chronic renal disease. * Echocardiogram 10/06/2018: LVEF 65 to 70%. LV normal size. Severe LVH. Grade 1 diastolic dysfunction. RV SF is normal. LA mildly dilated. Mild AV insufficiency. * Echocardiogram 01/03/2021 -EF 55 to 60% left ventricle is normal size, right ventricle normal size, aortic valve is calcified no stenosis mild to moderate aortic regurgitation severe mitral valve calcification,possible mitral valve vegetation * YASH 01/05/2021-Left ventricular systolic function is normal EF 55 to 60%, no PFO, left atrium mildly dilated, no thrombus or appendage visualized in left atrium aortic valve is calcified, posterior mitral valve leaflets severely calcified with a bright echodensity * Awaiting blood cultures results due rule out endocarditis * Lexiscan 10/06/2018: Negative for reversible ischemia. EF 53% * Optimize antihyperlipidemic regimen: continue atorvastatin 80 mg nightly. Severe anemia * Patient endorses recent black tarry stools and BRBPR. Initial labs reveal hemoglobin of 6.8. Patient previousy received PRBC transfusion. GI is consulted. * No anticoagulation due to significant risk of bleeding event DVT prophylaxis * No AC due to anemia YASH report shows bright echodensity on MV. Awaiting blood culture results to rule out endocarditis. Will continue to follow This patient was seen in conjunction with Dr Blevins who agrees with this assessment and plan of care. - Patient Problems (1) Anemia Current Visit: Yes Status: Acute Qualifiers: Anemia type: unspecified type Qualified Code(s): D64.9 - Anemia, unspecified (2) DVT prophylaxis Current Visit: Yes Status: Acute (3) General weakness Current Visit: Yes Status: Acute (4) NSTEMI (non-ST elevated myocardial infarction) Current Visit: Yes Status: Acute (5) End-stage renal disease on peritoneal dialysis Current Visit: Yes Status: Chronic (6) Tobacco use Current Visit: Yes Status: Chronic (7) GI bleed Current Visit: Yes Status: Suspected Subjective Date of service: 01/05/21 Principal diagnosis: NSTEMI type 2 Interval history: Patient resting in bed. No events overnight Sinus rhythm 70s on monitor Objective Last Vital Signs Temp 98.4 F 01/05/21 03:03 Pulse 78 01/05/21 09:30 Resp 16 01/05/21 09:30 BP 179/94 01/05/21 09:30 Pulse Ox 100 01/05/21 10:00 - Physical Examination General: No Apparent Distress HEENT: Positive: PERRL, Normocephaly, Mucus Membranes Moist Neck: Positive: neck supple, trachea midline Cardiac: Positive: Reg Rate and Rhythm Lungs: Positive: Normal Breath Sounds Neuro: Positive: Grossly Intact, Weakness Abdomen: Positive: Unremarkable, Soft Skin: Negative: Rash Musculoskeletal: No Pain Extremities: Present: upper extr. pulses, lower extr. pulses. Absent: edema - Labs and Meds Comprehensive Metabolic Panel 01/05/21 Range/Units 05:04 Sodium 139 (137-145) mmol/L Potassium 4.7 (3.6-5.0) mmol/L Chloride 92.1 L (98-107) mmol/L Carbon Dioxide 21 L (22-30) mmol/L BUN 89 H (9-20) mg/dL Creatinine 28.7 H (0.8-1.3) mg/dL Glucose 108 H (75-100) mg/dL Calcium 9.4 (8.4-10.2) mg/dL - Imaging and Cardiology EKG: report reviewed, image reviewed Echo: pending, report reviewed (Echocardiogram 10/06/2018: LVEF 65 to 70%. LV normal size. Severe LVH. Grade 1 diastolic dysfunction. RV SF is normal. LA mildly dilated. Mild AV insufficiency.) YASH: pending - Telemetry EKG Rhythm: Sinus Rhythm - EKG Sinus rhythms and dysrhythmias: sinus rhythm
[2021-01-05 12:22] LABS: Basophils # (Auto) 0.1 K/mm3 (0.0-0.1); Basophils % (Auto) 0.5 % (0.0-1.8); Eosinophils # (Auto) 0.2 K/mm3 (0.0-0.4); Eosinophils % (Auto) 1.8 % (0.0-4.3); Hematocrit 24.1 % (35.5-45.6); Lymphocytes # (Auto) 1.3 K/mm3 (1.2-5.4); Lymphocytes % (Auto) 12.3 % (13.4-35.0); Mean Corpuscular HGB Conc 33 % (32-34); Mean Corpuscular Volume 84 fl (84-94); Monocytes # (Auto) 0.9 K/mm3 (0.0-0.8); Monocytes % (Auto) 8.7 % (0.0-7.3); Platelet Count 243 K/mm3 (140-440); Red Blood Count 2.87 M/mm3 (3.65-5.03); Red Cell Distribution Width 16.3 % (13.2-15.2)
--- NOTE | 2021-01-05 13:36 | Gastroenterology Progress Note ---
Assessment and Plan anemia with heme positive stool -suspect primarily anemia of chronic disease in setting of esrd. EGD negative. H/H stable. needs outpatient colonoscopy. f/u with nephrology as outpatient. will sign off, please call as needed f/u in gi clinic in 2-3 weeks. Subjective Date of service: 01/05/21 Principal diagnosis: anemia Interval history: tolerating po, no new gi complaints/symptoms, denies overt gi bleeding. Objective - Constitutional Vitals: Temp Pulse Resp BP Pulse Ox 98.4 F 78 16 179/94 100 01/05/21 03:03 01/05/21 09:30 01/05/21 09:30 01/05/21 09:30 01/05/21 10:00 General appearance: no acute distress - Respiratory Respiratory effort: normal Respiratory: left: CTA - Gastrointestinal General gastrointestinal: Present: soft, non-tender - Labs CBC & Chem 7: 01/05/21 11:57 01/05/21 05:04 Labs: Laboratory Results - last 24 hr 01/03/21 01/05/21 01/05/21 13:12 05:04 11:57 WBC 10.5 RBC 2.87 L Hgb 8.0 L Hct 24.1 L MCV 84 MCH 28 MCHC 33 RDW 16.3 H Plt Count 243 Lymph % (Auto) 12.3 L [place] % (Auto) 8.7 H Eos % (Auto) 1.8 Baso % (Auto) 0.5 Lymph # (Auto) 1.3 [place] # (Auto) 0.9 H Eos # (Auto) 0.2 Baso # (Auto) 0.1 Seg Neutrophils % 76.7 H Seg Neutrophils # 8.0 H Sodium 139 Potassium 4.7 Chloride 92.1 L Carbon Dioxide 21 L Anion Gap 31 BUN 89 H Creatinine 28.7 H Estimated GFR 2 BUN/Creatinine Ratio 3 Glucose 108 H Calcium 9.4 Phosphorus 12.20 H Blood Type A POSITIVE Antibody Screen Negative Crossmatch See Detail
[2021-01-06] MEDS: DIALYSATE LO CAL 1.5% SOLN 2000 ML IP SCH ×4 (01:02→12:43)
--- NOTE | 2021-01-06 10:20 | Progress Note ---
Assessment and Plan - Patient Problems (1) End-stage renal disease on peritoneal dialysis Current Visit: Yes Status: Chronic Plan to address problem: Nonadherence to dialysis treatments at home. Intensive dialysis treatments in the hospital with manual exchanges q4hrs. Will resume intensive APD using his cycler at home. Patient is otherwise stable for discharge from renal stand point (2) Anemia associated with acute blood loss Current Visit: Yes Status: Acute Plan to address problem: Follow-up hemoglobin. Being managed by hand singer Continue erythropoietin and iron supplements on dialysis. (3) Hyperphosphatemia Current Visit: Yes Status: Acute Plan to address problem: Reinforced low phosphorus diet and adherence to binders. Emphasized importance of getting this controlled to avoid calciphylaxis and widespread calcification of blood vessels and heart. Suspect the mitral valve lesion is related to hyperphosphatemia and calcification, BCx are negative to date. (4) Left foot pain Current Visit: Yes Status: Acute Plan to address problem: Continue management by jingle writer. Follow-up cultures (5) Malnutrition of moderate degree (Lee: 60% to less than 75% of standard weight) Current Visit: Yes Status: Acute Plan to address problem: Nutritional supplementation (6) Uremia Current Visit: Yes Status: Acute Plan to address problem: Secondary to missed dialysis treatments. Intensive peritoneal dialysis Subjective Date of service: 01/06/21 Principal diagnosis: NSTEMI type 2 Interval history: Pt awake , alert in no acute distress Objective - Vital Signs Vital signs: Vital Signs - 12hr 01/05/21 01/06/21 01/06/21 23:07 04:06 07:17 Temperature 97.9 F 98.0 F 97.9 F Pulse Rate 85 75 73 Respiratory 16 16 19 Rate Blood Pressure 107/58 104/58 125/68 O2 Sat by Pulse 98 99 100 Oximetry - General Appearance General appearance: well-developed, appears stated age EENT: ATNC, PERRL, mucous membranes moist Neck: no JVD Respiratory: Present: Clear to Ascultation Cardiology: regular, S1S2 Gastrointestinal: normoactive bowel sounds Integumentary: no rash, other (no edema ) Neurologic: no focal deficit, alert and oriented x3, strength 5/5, CN 3-12 intact Psychiatric: mood/affect appropriate, cooperative - Lab 01/05/21 11:57 01/05/21 05:04 Most recent lab results Calcium 9.4 mg/dL (8.4-10.2) 01/05/21 05:04 Phosphorus 12.20 mg/dL (2.5-4.5) H 01/05/21 05:04 Magnesium 2.70 mg/dL (1.7-2.3) H 01/03/21 09:46 Medications & Allergies - Medications Allergies/Adverse Reactions: Allergies No Known Allergies Allergy (Unverified 01/03/21 10:34) Home Medications: Home Medications Medication Instructions Recorded Confirmed Last Taken Type B Complex 11/Folic/C/Biot/Zinc 1 each PO DAILY #30 01/05/21 Unknown Rx [Dialyvite with Zinc Tablet] Calcitriol 0.5 mcg PO DAILY #30 01/05/21 Unknown Rx Colace CAP 100 mg DAILY 01/05/21 01/05/21 01/03/21 History Dialysate Lo Jerald 1.5% Soln 2,000 ml IP Q4H bag 01/05/21 Unknown Rx [Dianeal Low Calcium W/1.5% Dextrose] NIFEdipine [Afeditab Cr] 60 mg PO BID #60 01/05/21 Unknown Rx Velphoro (Nf) 1,500 mg PO TID 01/05/21 01/05/21 01/03/21 08:00 History carvediloL [Coreg] 25 mg PO BID #60 01/05/21 Unknown Rx carvediloL [Coreg] 25 mg PO BID@0800,1700 tablet 01/05/21 Unknown Rx hydrALAZINE [Apresoline TAB] 100 mg PO BID #60 tab 01/05/21 Unknown Rx Active Medications: Generic Name Dose Route Start Last Admin Trade Name [place] PRN Reason Stop Dose Admin Acetaminophen 650 mg 01/03/21 13:00 Acetaminophen 325 Mg Tab PO Q4H PRN Pain MILD(1-3)/Fever >100.5/BARRERA Albuterol 2.5 mg 01/03/21 13:00 Albuterol 2.5 Mg/3 Ml Nebu IH Q4HRT PRN Shortness Of Breath Carvedilol 25 mg 01/05/21 03:00 01/05/21 18:22 Carvedilol 25 Mg Tab PO 25 mg BID@0800,1700 SHI Administration Hydralazine HCl 100 mg 01/05/21 03:00 01/05/21 22:02 Hydralazine 100 Mg Tab PO 100 mg BID SHI Administration Hydromorphone HCl 0.5 mg 01/03/21 13:00 01/03/21 14:27 Hydromorphone 1 Mg/1 Ml Inj IV 0.5 mg Q12H PRN Administration Pain , Severe (7-10) Sodium Chloride 1,000 mls @ 50 mls/hr 01/04/21 13:00 Nacl 0.9% 1000 Ml IV DIRECT SHI Sodium Chloride 500 mls @ 50 mls/hr 01/05/21 08:00 01/05/21 08:25 Nacl 0.9% 500 Ml IV 50 mls/hr DIRECT SHI Administration Nifedipine 60 mg 01/05/21 10:00 01/05/21 22:02 Nifedipine Xl 60 Mg Tab PO 60 mg BID SHI Administration Ondansetron HCl 4 mg 01/03/21 14:00 Ondansetron 4 Mg/2 Ml Inj IV Q8H PRN Nausea And Vomiting Oxycodone/Acetaminophen 1 tab 01/03/21 13:00 Oxycodone /Acetaminophen 5-325mg Tab PO Q12H PRN Pain, Moderate (4-6) Peritoneal Dialysis Solution 2,000 ml 01/05/21 04:00 01/06/21 05:29 Dialysate Lo [place] 1.5% Soln 2000 Ml IP 2,000 ml Q4H SHI Administration Sevelamer Carbonate 2,400 mg 01/06/21 11:30 Sevelamer Carbonate 800 Mg Tab PO AC SHI Sodium Chloride 10 ml 01/03/21 13:00 01/05/21 22:02 Sodium Chloride 0.9% 10 Ml Flush Syringe IV 10 ml BID SHI Administration Sodium Chloride 10 ml 01/03/21 13:00 Sodium Chloride 0.9% 10 Ml Flush Syringe IV PRN PRN LINE FLUSH
[2021-01-06] MEDS: hydrALAZINE 100 MG TAB PO SCH (10:40)
[2021-01-06] MEDS: carvediloL 25 MG TAB PO SCH (10:40)
[2021-01-06] MEDS: NIFEdipine XL 60 MG TAB PO SCH (10:40)
--- NOTE | 2021-01-06 11:02 | Progress Note ---
Assessment and Plan 45-year-old patient on peritoneal dialysis chronic anemia negative EGD who is blood cultures are negative so patient's echodensity is from calcification patient in discussion with renal will be on binding agents. Patient may be discharged from a cardiovascular point of view and follow-up. In view of abnormal troponin in view of no chest pain in view of patient's anemia we will treat the patient medically - Patient Problems (1) Anemia associated with acute blood loss Current Visit: Yes Status: Acute (2) Anemia in chronic kidney disease (CKD) Current Visit: Yes Status: Acute (3) General weakness Current Visit: Yes Status: Acute (4) Hyperphosphatemia Current Visit: Yes Status: Acute (5) Left foot pain Current Visit: Yes Status: Acute (6) Malnutrition of moderate degree (Lee: 60% to less than 75% of standard weight) Current Visit: Yes Status: Acute (7) NSTEMI (non-ST elevated myocardial infarction) Current Visit: Yes Status: Acute Subjective Date of service: 01/06/21 Principal diagnosis: NSTEMI type 2 Interval history: no cp Objective Vital Signs Temp Pulse Resp BP Pulse Ox 01/06/21 07:17 97.9 F 73 19 125/68 100 01/06/21 04:06 98.0 F 75 16 104/58 99 01/05/21 23:07 97.9 F 85 16 107/58 98 01/05/21 22:00 75 16 100 01/05/21 19:05 98.1 F 84 16 146/90 100 01/05/21 16:21 97.9 F 85 18 125/79 99 01/05/21 11:44 98.4 F 92 H 18 155/93 98 - Physical Examination General: No Apparent Distress HEENT: Positive: PERRL, Normocephaly, Mucus Membranes Moist Neck: Positive: neck supple, trachea midline Cardiac: Positive: Reg Rate and Rhythm Lungs: Positive: clear to auscultation Neuro: Positive: Grossly Intact, Weakness Abdomen: Positive: Unremarkable, Soft Skin: Negative: Rash Musculoskeletal: No Pain Extremities: Present: upper extr. pulses, lower extr. pulses. Absent: edema - Labs and Meds CBC 01/05/21 Range/Units 11:57 WBC 10.5 (4.5-11.0) K/mm3 RBC 2.87 L (3.65-5.03) M/mm3 Hgb 8.0 L (11.8-15.2) gm/dl Hct 24.1 L (35.5-45.6) % Plt Count 243 (140-440) K/mm3 Lymph # (Auto) 1.3 (1.2-5.4) K/mm3 [place] # (Auto) 0.9 H (0.0-0.8) K/mm3 Eos # (Auto) 0.2 (0.0-0.4) K/mm3 Baso # (Auto) 0.1 (0.0-0.1) K/mm3 - Imaging and Cardiology EKG: report reviewed, image reviewed Echo: pending, report reviewed (Echocardiogram 10/06/2018: LVEF 65 to 70%. LV normal size. Severe LVH. Grade 1 diastolic dysfunction. RV SF is normal. LA mildly dilated. Mild AV insufficiency.) YASH: report reviewed (normal lv funciton severe posterior calcfication with a small echo mobile density) - Telemetry EKG Rhythm: Sinus Rhythm - EKG Sinus rhythms and dysrhythmias: sinus rhythm
--- NOTE | 2021-01-06 11:08 | Discharge Summary ---
Providers - Providers Date of Admission: 01/04/21 16:45 Date of discharge: 01/06/21 Attending physician: JETT ALVAREZ 01/03/21 11:35 Consult to Physician [CONS] Stat Comment: Consulting Provider: MONY HAMPTON Physician Instructions: Reason For Exam: GI Bleed 01/03/21 11:36 Consult to Physician [CONS] Routine Comment: Consulting Provider: GLEN GRIER Physician Instructions: Reason For Exam: uremia, acute on chronic renal failure 01/03/21 11:37 Consult to Physician [CONS] Stat Comment: Consulting Provider: SHIRA URBINA Physician Instructions: Reason For Exam: positive troponin 01/03/21 14:55 Consult to Wound/ET Nurse [CONS] Routine Reason For Exam: wound eval Primary care physician: [employer] SALESPERSON Hospitalization Reason for admission: Anemia, heme positive stool, Condition: Serious Hospital course: This patient is a 45-year-old male with a significant history of end-stage renal disease on peritoneal dialysis, hypertension, medication noncompliance, hyperlipidemia, anemia, 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 Initial labs revealed severe anemia (hemoglobin 6.8). Patient endorses black tarry stools and bright red blood per rectum over past several days. The patient was admitted with diagnosis of melena, elevated troponin, anemia and ESRD on peritoneal dialysis. GI was consulted and recommended endoscopy with findings revealing normal esophagus and Patchy, mildly friable mucosa in the antrum of the stomach. No high risk bleeding lesions. The duodenum appeared normal. GI felt patient could resume diet and discharge from their standpoint. Cardiology was also consulted for elevated troponins. Cardiology suspected that troponin elevation was related to supply demand mismatch in the setting of chronic renal disease. Echocardiogram was completed and revealed echodensity on the mitral valve and possible vegetation. YASH also showed echodensity but felt to be likely calcification. Cardiology felt that with blood cultures negative echodensity is from calcification patient in discussion with renal will be on binding agents. Patient may be discharged from a cardiovascular point of view and follow-up. Dedicated discharge time 35 minutes. Disposition: [id number] TO HOME OR SELFCARE Final Discharge Diagnosis (Prints w/discharge instructions): Anemia, ESRD on peritoneal dialysis, generalized weakness, protein calorie malnutrition Core Measure Documentation - Palliative Care Palliative Care/ Comfort Measures: Not Applicable - Core Measures Any of the following diagnoses?: none Exam - Constitutional Vitals: Temp Pulse Resp BP Pulse Ox 97.9 F 73 19 125/68 100 01/06/21 07:17 01/06/21 07:17 01/06/21 07:17 01/06/21 07:17 01/06/21 07:17 General appearance: Present: no acute distress, well-nourished - EENT Eyes: Present: PERRL ENT: hearing intact, clear oral mucosa - Neck Neck: Present: supple, normal ROM - Respiratory Respiratory effort: normal Respiratory: bilateral: CTA - Cardiovascular Heart Sounds: Present: S1 & S2. Absent: rub, click - Extremities Extremities: pulses symmetrical, No edema Peripheral Pulses: within normal limits - Abdominal General gastrointestinal: Present: soft, non-tender, non-distended, normal bowel sounds Male genitourinary: Present: normal - Integumentary Integumentary: Present: clear, warm, dry - Musculoskeletal Musculoskeletal: gait normal, strength equal bilaterally - Psychiatric Psychiatric: appropriate mood/affect, intact judgment & insight - Neurologic Neurologic: CNII-XII intact, moves all extremities Plan Activity: advance as tolerated Weight Bearing Status: Weight Bear as Tolerated Follow up with: PRIMARY CARE, [Primary Care Provider] - 7 Days Prescriptions: NIFEdipine [Afeditab Cr] 60 mg PO BID #60 hydrALAZINE [Apresoline TAB] 100 mg PO BID #60 tab Calcitriol 0.5 mcg PO DAILY #30 carvediloL [Coreg] 25 mg PO BID #60 B Complex 11/Folic/C/Biot/Zinc [Dialyvite with Zinc Tablet] 1 each PO DAILY #30 NIFEdipine XL [Procardia Xl] 60 mg PO BID #60 tablet
[2021-01-06] MEDS ORDERED: SEVELAMER CARBONATE 800 MG TAB PO SCH (11:30)
[2021-01-06 11:42] VITALS: BP 126/76
== END 2021-01-06 15:15 | disposition home or self-care (01) | DRG 377 ==
LOC: ED 08:55 → 4A 12:35 → OBSVTOIN 01-04 16:45
PROVIDERS: ADMIT Internal Medicine; ATTEND Hospitalist
PROC: 0DJ08ZZ Inspection of Upper Intestinal Tract, Via Natural or Artificial Opening Endoscopic (ICD-10-PCS; principal; 2021-01-04)
PROC: 30233N1 Transfusion of Nonautologous Red Blood Cells into Peripheral Vein, Percutaneous Approach (ICD-10-PCS; 2021-01-04)
PROC: 3E1M39Z Irrigation of Peritoneal Cavity using Dialysate, Percutaneous Approach (ICD-10-PCS; 2021-01-06)
DX: K29.71 Gastritis, unspecified, with bleeding (principal); N18.6 End stage renal disease; I21.A1 Myocardial infarction type 2; E44.0 Moderate protein-calorie malnutrition; Z68.1 Body mass index [BMI] 19.9 or less, adult; N18.9 Chronic kidney disease, unspecified; N17.9 Acute kidney failure, unspecified; D63.1 Anemia in chronic kidney disease; Z99.2 Dependence on renal dialysis; I12.0 Hypertensive chronic kidney disease with stage 5 chronic kidney disease or end stage renal disease; F17.200 Nicotine dependence, unspecified, uncomplicated; Z71.6 Tobacco abuse counseling; Z82.49 Family history of ischemic heart disease and other diseases of the circulatory system; Z91.19 Patient's noncompliance with other medical treatment and regimen; Z86.73 Personal history of transient ischemic attack (TIA), and cerebral infarction without residual deficits; D62 Acute posthemorrhagic anemia; E83.39 Other disorders of phosphorus metabolism
CPT/HCPCS: 36415; 70450; 71045; 80048; 80061; 80076; 80320; 82140; 82271; 83690; 83735; 84100; 84484; 85018; 85025; 85610; 85730; 86850; 86900; 86901; 86920; 87040; 93005; 93306; 93312; 93320; 93325; 93970; 99292; 99406; G0378; C9113; G0480; J1170; J2405; J2704; J3010; J3370; J7040; P9016

== ENCOUNTER 2021-12-13 05:32 | Inpatient (IN) | payer MEDICAID ==
--- NOTE | 2021-12-13 06:32 | Emergency Department Report ---
ED Shortness of Breath HPI - General Chief Complaint: Dyspnea/Respdistress Stated Complaint: SOB Time Seen by Provider: 12/13/21 06:25 Source: patient, EMS Mode of arrival: Stretcher Limitations: No Limitations - History of Present Illness Initial Comments: Patient is a 46-year-old male with history of chronic kidney disease on dialysis Friday presenting with complaint of shortness of breath that began last night. His last dialysis was yesterday. He denies fever or chills. - Related Data Home Medications Medication Instructions Recorded Confirmed Last Taken Colace CAP 100 mg DAILY 01/05/21 01/05/21 01/03/21 Velphoro (Nf) 1,500 mg PO TID 01/05/21 01/05/21 01/03/21 08:00 Previous Rx's Medication Instructions Recorded Last Taken Type B Complex 11/Folic/C/Biot/Zinc 1 each PO DAILY #30 01/05/21 Unknown Rx [Dialyvite with Zinc Tablet] Calcitriol 0.5 mcg PO DAILY #30 01/05/21 Unknown Rx Dialysate Lo Jerald 1.5% Soln 2,000 ml IP Q4H bag 01/05/21 Unknown Rx [Dianeal Low Calcium W/1.5% Dextrose] NIFEdipine [Afeditab Cr] 60 mg PO BID #60 01/05/21 Unknown Rx carvediloL [Coreg] 25 mg PO BID #60 01/05/21 Unknown Rx carvediloL [Coreg] 25 mg PO BID@0800,1700 tablet 01/05/21 Unknown Rx hydrALAZINE [Apresoline TAB] 100 mg PO BID #60 tab 01/05/21 Unknown Rx NIFEdipine XL [Procardia Xl] 60 mg PO BID #60 tablet 01/06/21 Unknown Rx Sevelamer Carbonate [Renvela] 2,400 mg PO AC tablet 01/06/21 Unknown Rx Allergies Allergy/AdvReac Type Severity Reaction Status Date / Time No Known Allergies Allergy Verified 12/13/21 06:34 ED Review of Systems ROS: Stated complaint: SOB Other details as noted in HPI Comment: All other systems reviewed and negative Constitutional: denies: chills, fever Respiratory: shortness of breath Cardiovascular: denies: chest pain, palpitations Gastrointestinal: denies: abdominal pain, nausea, diarrhea Musculoskeletal: denies: back pain, joint swelling, arthralgia Skin: denies: rash, lesions Neurological: denies: headache, weakness, paresthesias Psychiatric: denies: anxiety, depression ED Past Medical Hx - Past Medical History Hx Hypertension: Yes Hx Heart Attack/AMI: Yes Hx Congestive Heart Failure: No Hx Diabetes: No Hx Liver Disease: No Hx Renal Disease: Yes Hx Seizures: No Hx Asthma: No Hx COPD: No - Social History Smoking Status: Unknown if ever smoked - Medications Home Medications: Home Medications Medication Instructions Recorded Confirmed Last Taken Type B Complex 11/Folic/C/Biot/Zinc 1 each PO DAILY #30 01/05/21 Unknown Rx [Dialyvite with Zinc Tablet] Calcitriol 0.5 mcg PO DAILY #30 01/05/21 Unknown Rx Colace CAP 100 mg DAILY 01/05/21 01/05/21 01/03/21 History Dialysate Lo Jerald 1.5% Soln 2,000 ml IP Q4H bag 01/05/21 Unknown Rx [Dianeal Low Calcium W/1.5% Dextrose] NIFEdipine [Afeditab Cr] 60 mg PO BID #60 01/05/21 Unknown Rx Velphoro (Nf) 1,500 mg PO TID 01/05/21 01/05/21 01/03/21 08:00 History carvediloL [Coreg] 25 mg PO BID #60 01/05/21 Unknown Rx carvediloL [Coreg] 25 mg PO BID@0800,1700 tablet 01/05/21 Unknown Rx hydrALAZINE [Apresoline TAB] 100 mg PO BID #60 tab 01/05/21 Unknown Rx NIFEdipine XL [Procardia Xl] 60 mg PO BID #60 tablet 01/06/21 Unknown Rx Sevelamer Carbonate [Renvela] 2,400 mg PO AC tablet 01/06/21 Unknown Rx ED Physical Exam - General Limitations: No Limitations General appearance: alert, in no apparent distress - Head Head exam: Present: atraumatic, normocephalic - Respiratory Respiratory exam: Present: respiratory distress (Patient in mild respiratory distress), other (Bibasilar crackles) - Cardiovascular Cardiovascular Exam: Present: regular rate, normal rhythm, normal heart sounds - GI/Abdominal GI/Abdominal exam: Present: soft. Absent: distended, tenderness - Rectal Rectal exam: Present: deferred - Neurological Exam Neurological exam: Present: alert, oriented X3 - Psychiatric Psychiatric exam: Present: normal affect, normal mood - Skin Skin exam: Present: warm, dry, intact, normal color ED Course Vital Signs 12/13/21 12/13/21 12/13/21 05:41 06:07 06:24 Temperature 98.8 F 98.0 F Pulse Rate 99 H 107 H 108 H Respiratory 20 20 34 H Rate Blood Pressure 233/137 Blood Pressure 248/139 233/137 [Left] O2 Sat by Pulse 95 100 Oximetry 12/13/21 12/13/21 12/13/21 06:26 08:52 09:06 Temperature 97.0 F L Pulse Rate 79 63 Respiratory 20 22 24 Rate Blood Pressure 135/53 Blood Pressure 249/144 [Left] O2 Sat by Pulse 95 94 99 Oximetry ED Medical Decision Making - Lab Data Result diagrams: 12/13/21 06:58 12/13/21 06:58 - Medical Decision Making 46-year-old male on dialysis presenting with complaint of shortness of breath. Chest x-ray shows cardiomegaly with likely pulmonary edema. Patient currently on nonrebreather at 15 L satting mid to low 90s. I discussed case with on-call loss control manager Dr. Sanchez who will place orders for dialysis. Will admit to hospitalist service. Critical care attestation.: If time is entered above; I have spent that time in minutes in the direct care of this critically ill patient, excluding procedure time. ED Disposition Clinical Impression: Volume overload state of heart Disposition: ADMITTED INPATIENT Is pt being admited?: Yes Condition: Stable
[2021-12-13 07:26] LABS: Basophils # (Auto) 0.1 K/mm3 (0.0-0.1); Basophils % (Auto) 0.7 % (0.0-1.8); Eosinophils % (Auto) 0.3 % (0.0-4.3); Hematocrit 36.9 % (35.5-45.6); Hemoglobin 11.7 gm/dl (11.8-15.2); Lymphocytes # (Auto) 0.8 K/mm3 (1.2-5.4); Lymphocytes % (Auto) 8.4 % (13.4-35.0); Mean Corpuscular HGB Conc 32 % (32-34); Mean Corpuscular Volume 82 fl (84-94); Monocytes # (Auto) 0.6 K/mm3 (0.0-0.8); Monocytes % (Auto) 6.7 % (0.0-7.3); Platelet Count 205 K/mm3 (140-440)
[2021-12-13 07:47] LABS: Albumin 4.9 g/dL (3.9-5); Calcium 10.4 mg/dL (8.4-10.2)
[2021-12-13 07:54] LABS: Red Cell Distribution Width 22.7 % (13.2-15.2)
--- NOTE | 2021-12-13 08:16 | XRay Report ---
CHEST 1 VIEW 12/13/2021 7:34 AM INDICATION / CLINICAL INFORMATION: Dyspnea. COMPARISON: 01/03/2021 FINDINGS: SUPPORT DEVICES: None. HEART / MEDIASTINUM: Interval valvuloplasty with midline sternotomy since the previous exam. There is new mild cardiomegaly. LUNGS / PLEURA: Mild pulmonary venous congestion has developed. A right infrahilar infiltrate is iden tified. Although this could represent focal congestive changes, pneumonia cannot be excluded. Please correlate with the patient's clinical presentation. There are trace bilateral pleural effusions. No p neumothorax. ADDITIONAL FINDINGS: No significant additional findings. IMPRESSION: 1. Mild CHF which is new since 01/03/2021. 2. Right infrahilar infiltrate, focal congestion versus pneumonia. Signer Name: Abdirahman Montoya Jr, MD Signed: 12/13/2021 8:11 AM Workstation Name: [id number]
[2021-12-13] MEDS ORDERED: ACETAMINOPHEN 325 MG TAB PO PRN (11:09)
[2021-12-13] MEDS ORDERED: ONDANSETRON 4 MG/2 ML INJ IV PRN (11:09)
[2021-12-13] MEDS ORDERED: oxyCODONE /ACETAMINOPHEN 5-325MG TAB PO PRN (11:14)
[2021-12-13] MEDS ORDERED: MORPHINE 4 MG/1 ML INJ IV PRN (11:14)
[2021-12-13] MEDS ORDERED: SODIUM CHLORIDE 0.9% 100 ML IV PRN ×2 (11:15→23:05)
[2021-12-13 13:26] LABS: Hepatitis B Surface Antigen Non-Reactive (Negative); Hepatitis C Virus Antibody Non-Reactive (NonReactive)
--- NOTE | 2021-12-13 16:26 | History and Physical Report ---
History of Present Illness Date of examination: 12/13/21 Date of admission: 12/13/21 11:09 Chief complaint: Shortness of breath History of present illness: Patient is a 46-year-old male with past medical history of uncontrolled hypertension and ESRD on hemodialysis (Friday) who presented for worsening shortness of breath and orthopnea after his last hemodialysis session on 12/10/2021. The patient presented to the ED and underwent an initial hemodialysis session but still had significant acute hypoxic respiratory failure complicated by bilateral pleural effusions prompting BiPAP. The patient was found to be experiencing hypertensive emergency with a blood pressure 249/144. Patient's labs were remarkable for lactic acid 3.6, proBNP >70,000. Nephrology was consulted for emergent hemodialysis, and the hospitalist service was called to initiate admission. Past History Past Medical History: dialysis, ESRD, hypertension Past Surgical History: Other (Permacath placement) Social history: , lives with family, full code Family history: diabetes, hypertension Medications and Allergies Allergies Allergy/AdvReac Type Severity Reaction Status Date / Time No Known Allergies Allergy Verified 12/13/21 06:34 Home Medications Medication Instructions Recorded Confirmed Last Taken Type B Complex 11/Folic/C/Biot/Zinc 1 each PO DAILY #30 01/05/21 Unknown Rx [Dialyvite with Zinc Tablet] Calcitriol 0.5 mcg PO DAILY #30 01/05/21 Unknown Rx Colace CAP 100 mg DAILY 01/05/21 01/05/21 01/03/21 History Dialysate Lo Jerald 1.5% Soln 2,000 ml IP Q4H bag 01/05/21 Unknown Rx [Dianeal Low Calcium W/1.5% Dextrose] NIFEdipine [Afeditab Cr] 60 mg PO BID #60 01/05/21 Unknown Rx Velphoro (Nf) 1,500 mg PO TID 01/05/21 01/05/21 01/03/21 08:00 History carvediloL [Coreg] 25 mg PO BID #60 01/05/21 Unknown Rx carvediloL [Coreg] 25 mg PO BID@0800,1700 tablet 01/05/21 Unknown Rx hydrALAZINE [Apresoline TAB] 100 mg PO BID #60 tab 01/05/21 Unknown Rx NIFEdipine XL [Procardia Xl] 60 mg PO BID #60 tablet 01/06/21 Unknown Rx Sevelamer Carbonate [Renvela] 2,400 mg PO AC tablet 01/06/21 Unknown Rx Active Meds: Active Medications Acetaminophen (Acetaminophen 325 Mg Tab) 650 mg PO Q4H PRN PRN Reason: Pain MILD(1-3)/Fever >100.5/BARRERA Furosemide (Furosemide 100 Mg/10 Ml Inj) 60 mg IV 0600,1800 [facility] Heparin Sodium (Porcine) (Heparin 5,000 Unit/1 Ml Vial) 5,000 unit SUB-Q Q8HR [facility] Sodium Chloride (Nacl 0.9%) 100 mls @ 999 mls/hr IV DOMINGO PRN PRN Reason: Hypotension Azithromycin (Zithromax/Ns) 500 mg in 250 mls @ 250 mls/hr IV Q24H [facility] Stop: 12/17/21 13:29 Ceftriaxone Sodium (Rocephin/Ns 1 Gm/50 Ml) 1 gm in 50 mls @ 100 mls/hr IV Q24H [facility]; Protocol Stop: 12/17/21 12:29 Morphine Sulfate (Morphine 4 Mg/1 Ml Inj) 2 mg IV Q4H PRN PRN Reason: Pain , Severe (7-10) Ondansetron HCl (Ondansetron 4 Mg/2 Ml Inj) 4 mg IV Q8H PRN PRN Reason: Nausea And Vomiting Oxycodone/Acetaminophen (Oxycodone /Acetaminophen 5-325mg Tab) 1 tab PO Q6H PRN PRN Reason: Pain, Moderate (4-6) Sodium Chloride (Sodium Chloride 0.9% 10 Ml Flush Syringe) 10 ml IV BID SHI Sodium Chloride (Sodium Chloride 0.9% 10 Ml Flush Syringe) 10 ml IV PRN PRN PRN Reason: LINE FLUSH Review of Systems Cardiovascular: shortness of breath, leg edema Respiratory: shortness of breath, dyspnea on exertion Exam - Constitutional Vitals: Temp Pulse Resp BP Pulse Ox 97.0 F L 94 H 24 207/129 95 12/13/21 12:14 12/13/21 12:30 12/13/21 12:14 12/13/21 12:30 12/13/21 12:14 General appearance: Present: no acute distress, well-nourished - EENT Eyes: Present: PERRL, EOM intact ENT: hearing intact, clear oral mucosa, dentition normal - Neck Neck: Present: supple, normal ROM - Respiratory Respiratory effort: normal Respiratory: bilateral: rales (On BiPAP) - Cardiovascular Rhythm: regular Heart Sounds: Present: S1 & S2 - Extremities Extremities: no ischemia, pulses intact, pulses symmetrical, normal temperature, normal color, Full ROM Extremity abnormal: edema (1+ pitting edema bilateral lower extremities) Peripheral Pulses: within normal limits - Abdominal General gastrointestinal: Present: soft, non-tender, non-distended, normal bowel sounds Male genitourinary: Present: deferred - Rectal Rectal Exam: deferred - Integumentary Integumentary: Present: clear, warm, dry - Musculoskeletal Musculoskeletal: strength equal bilaterally - Psychiatric Psychiatric: appropriate mood/affect, memory intact, cooperative - Neurologic Neurologic: CNII-XII intact, moves all extremities - Allied Health Allied health notes reviewed: nursing Results - Labs CBC & Chem 7: 12/14/21 04:56 12/14/21 04:56 Labs: Laboratory Last Values WBC 9.1 K/mm3 (4.5-11.0) 12/13/21 06:58 RBC 4.50 M/mm3 (3.65-5.03) 12/13/21 06:58 Hgb 11.7 gm/dl (11.8-15.2) L 12/13/21 06:58 Hct 36.9 % (35.5-45.6) 12/13/21 06:58 MCV 82 fl (84-94) L 12/13/21 06:58 MCH 26 pg (28-32) L 12/13/21 06:58 MCHC 32 % (32-34) 12/13/21 06:58 RDW 22.7 % (13.2-15.2) H 12/13/21 06:58 Plt Count 205 K/mm3 (140-440) 12/13/21 06:58 Lymph % (Auto) 8.4 % (13.4-35.0) L 12/13/21 06:58 Wise % (Auto) 6.7 % (0.0-7.3) 12/13/21 06:58 Eos % (Auto) 0.3 % (0.0-4.3) 12/13/21 06:58 Baso % (Auto) 0.7 % (0.0-1.8) 12/13/21 06:58 Lymph # (Auto) 0.8 K/mm3 (1.2-5.4) L 12/13/21 06:58 Wise # (Auto) 0.6 K/mm3 (0.0-0.8) 12/13/21 06:58 Eos # (Auto) 0.0 K/mm3 (0.0-0.4) 12/13/21 06:58 Baso # (Auto) 0.1 K/mm3 (0.0-0.1) 12/13/21 06:58 Seg Neutrophils % 83.9 % (40.0-70.0) H 12/13/21 06:58 Seg Neutrophils # 7.6 K/mm3 (1.8-7.7) 12/13/21 06:58 D-Dimer 1983.44 ng/mlDDU (0-234) H 12/13/21 11:44 Sodium 144 mmol/L (137-145) 12/13/21 06:58 Potassium 4.6 mmol/L (3.6-5.0) 12/13/21 06:58 Chloride 97.6 mmol/L (98-107) L 12/13/21 06:58 Carbon Dioxide 28 mmol/L (22-30) 12/13/21 06:58 Anion Gap 23 mmol/L 12/13/21 06:58 BUN 27 mg/dL (9-20) H 12/13/21 06:58 Creatinine 6.9 mg/dL (0.8-1.3) H 12/13/21 06:58 Estimated GFR 10 ml/min 12/13/21 06:58 BUN/Creatinine Ratio 4 % 12/13/21 06:58 Glucose 104 mg/dL (75-100) H 12/13/21 06:58 Lactic Acid 3.60 mmol/L (0.7-2.0) H* 12/13/21 11:44 Calcium 10.4 mg/dL (8.4-10.2) H 12/13/21 06:58 Total Bilirubin 0.80 mg/dL (0.1-1.2) 12/13/21 06:58 AST 89 units/L (5-40) H 12/13/21 06:58 ALT 64 units/L (7-56) H 12/13/21 06:58 Alkaline Phosphatase 117 units/L (35-129) 12/13/21 06:58 NT-Pro-B Natriuret Pep > 57897 pg/mL (0-450) H 12/13/21 11:44 Total Protein 7.8 g/dL (6.3-8.2) 12/13/21 06:58 Albumin 4.9 g/dL (3.9-5) 12/13/21 06:58 Albumin/Globulin Ratio 1.7 % 12/13/21 06:58 Hepatitis A IgM Ab Non-reactive (NonReactive) 12/13/21 11:44 Hep Bs Antigen Non-reactive (Negative) 12/13/21 11:44 Hep B Core IgM Ab Non-reactive (NonReactive) 12/13/21 11:44 Hepatitis C Antibody Non-reactive (NonReactive) 12/13/21 11:44 Assessment and Plan Assessment and plan: #Acute hypoxic respiratory failure #Flash pulmonary edema with bilateral pleural effusions #Presumed community-acquired pneumonia - etiology: Volume overload - baseline oxygen requirements: Room air - supplemental oxygen: BiPAP Chest x-ray revealing right infrahilar infiltrate, trace bilateral pleural effusions. proBNP >70,000. Lactic acid 3.6--> continue to trend lactic acid. Starting azithromycin 500 mg daily and Rocephin 1 g 24 hours daily. - Continue protocol: continue pulse oximetry, wean oxygen as tolerated, ordered incentive spirometry and educated patient on how to use it and its importance. Should improve as patient undergoes hemodialysis and blood pressure is better controlled. - continue to monitor #Hypertensive emergency On admission blood pressure 249/144 and requiring BiPAP for hypoxic respiratory failure Restarting home antihypertensives: Nifedipine 60 mg twice daily, p.o. hydralazine 100 mg twice daily, Coreg 25 mg twice daily. Adding IV Lasix 60 mg twice daily. Should improve as patient undergoes hemodialysis. #ESRD on hemodialysis -Outpatient schedule: Friday -HD center: Unknown -Nephrology consulted; appreciate recs. -Renally dose medications and avoid nephrotoxic drugs. Renal diet. #Lactic acidosis Lactic acid 3.6. Continue to trend. #Microcytic anemia #Probable anemia of chronic disease Hemoglobin 11.7 Ordering iron profile + ferritin. Transfuse if hemoglobin <7 or patient becomes symptomatic. #Elevated D-dimer D-dimer 1983 High clinical suspicion this is secondary to renal failure. Continue to monitor. #Elevated transaminases AST 89, ALT 64 Possibly secondary to volume overload. No clinical indication to intervene at this point. Continue to monitor with CMP tomorrow. #Hypercalcemia Calcium 10.4 Should improve with hemodialysis. Can repeat lab tomorrow. #Severe protein caloric malnutrition Albumin 1.7 We will start dietary supplementation when patient is no longer on BiPAP. Critical Care Billing: The high probability of a clinically significant, sudden or life threatening deterioration of the [respiratory, cardiac] system(s) required my full and direct attention, intervention and personal management. The aggregate critical care time was [60] minutes. This time is in addition to time spent performing reported procedures but includes the following: [x] Data Review and interpretation [x] Patient assessment and monitoring of vital signs [x] Documentation [x] Medication orders and management Advance Directives: No VTE prophylaxis?: Chemical Plan of care discussed with patient/family: Yes
[2021-12-13] MEDS ORDERED: carvediloL 6.25 MG TAB PO SCH (17:00)
[2021-12-13] MEDS ORDERED: FUROSEMIDE 40 MG/4 ML INJ IV ONE (17:00)
[2021-12-13] MEDS ORDERED: VALSARTAN 160MG TAB PO SCH (17:00)
[2021-12-13] MEDS ORDERED: NIFEdipine XL 90 MG TAB PO SCH (18:00)
[2021-12-13] MEDS ORDERED: NIFEdipine XL 60 MG TAB PO SCH (18:00)
[2021-12-13] MEDS ORDERED: SODIUM CHLORIDE 0.9% 500 ML 500 ML ONE (18:51)
[2021-12-13] MEDS: carvediloL 25 MG TAB PO SCH (19:01)
[2021-12-13] MEDS: HEPARIN 5,000 UNIT/1 ML VIAL SUB-Q SCH ×2 (19:02→21:28)
[2021-12-13] MEDS: FUROSEMIDE 100 MG/10 ML INJ IV SCH (19:02)
[2021-12-13] MEDS: cefTRIAXone/NS 1 GM/50 ML 1 GM/50 ML BAG IV SCH (19:02)
[2021-12-13] MEDS: AZITHROMYCIN/NS 500 MG/250 ML 500 MG/250 ML BAG IV SCH (19:03)
[2021-12-13] MEDS: hydrALAZINE 100 MG TAB PO SCH (21:28)
[2021-12-14 05:24] LABS: Basophils % (Auto) 0.2 % (0.0-1.8); Hematocrit 36.9 % (35.5-45.6); Hemoglobin 11.5 gm/dl (11.8-15.2); Lymphocytes # (Auto) 1.2 K/mm3 (1.2-5.4); Lymphocytes % (Auto) 7.7 % (13.4-35.0); Mean Corpuscular HGB Conc 31 % (32-34); Mean Corpuscular Volume 83 fl (84-94); Monocytes # (Auto) 0.7 K/mm3 (0.0-0.8); Platelet Count 200 K/mm3 (140-440); Red Blood Count 4.47 M/mm3 (3.65-5.03)
[2021-12-14] MEDS: HEPARIN 5,000 UNIT/1 ML VIAL SUB-Q SCH ×3 (06:14→22:55)
[2021-12-14] MEDS: FUROSEMIDE 100 MG/10 ML INJ IV SCH (06:16)
[2021-12-14] MEDS ORDERED: NIFEdipine XL 60 MG TAB PO SCH (07:37)
[2021-12-14] MEDS ORDERED: FUROSEMIDE 100 MG/10 ML INJ IV SCH (08:00)
--- NOTE | 2021-12-14 08:52 | Consultation ---
History of Present Illness - Reason for Consult end stage renal disease - History of Present Illness Pleasant 46 y/o AAM with PMHx of ESRD, HTN, well known to our outpatient dialysis clinic at [facility] Holli Galan, presented to the ED secondary to worsening shortness of breath. His last HD treatment was Friday, and per patient he felt fine post treatment. he has been having issues with volume overload and we have discussed with him the importance of limiting his fluid and sodium intake and also his interdialytic weight gains. He had sequential UF treatment with removal of 4L yesterday. Plan for HD again today to place him back on his outpatient MWF schedule. Past History Past Medical History: dialysis, ESRD, hypertension Social history: full code Medications and Allergies Allergies Allergy/AdvReac Type Severity Reaction Status Date / Time No Known Allergies Allergy Verified 12/13/21 06:34 Home Medications Medication Instructions Recorded Confirmed Last Taken Type B Complex 11/Folic/C/Biot/Zinc 1 each PO DAILY #30 01/05/21 Unknown Rx [Dialyvite with Zinc Tablet] Calcitriol 0.5 mcg PO DAILY #30 01/05/21 Unknown Rx Colace CAP 100 mg DAILY 01/05/21 01/05/21 01/03/21 History Dialysate Lo Jerald 1.5% Soln 2,000 ml IP Q4H bag 01/05/21 Unknown Rx [Dianeal Low Calcium W/1.5% Dextrose] NIFEdipine [Afeditab Cr] 60 mg PO BID #60 01/05/21 Unknown Rx Velphoro (Nf) 1,500 mg PO TID 01/05/21 01/05/21 01/03/21 08:00 History carvediloL [Coreg] 25 mg PO BID #60 01/05/21 Unknown Rx carvediloL [Coreg] 25 mg PO BID@0800,1700 tablet 01/05/21 Unknown Rx hydrALAZINE [Apresoline TAB] 100 mg PO BID #60 tab 01/05/21 Unknown Rx NIFEdipine XL [Procardia Xl] 60 mg PO BID #60 tablet 01/06/21 Unknown Rx Sevelamer Carbonate [Renvela] 2,400 mg PO AC tablet 01/06/21 Unknown Rx Active Meds: Active Medications Acetaminophen (Acetaminophen 325 Mg Tab) 650 mg PO Q4H PRN PRN Reason: Pain MILD(1-3)/Fever >100.5/BARRERA Calcitriol (Calcitriol 0.5 Mcg Cap) 0.5 mcg PO QDAY [facility] Carvedilol (Carvedilol 25 Mg Tab) 25 mg PO BID [facility] Last Admin: 12/13/21 19:01 Dose: 25 mg Furosemide (Furosemide 100 Mg/10 Ml Inj) 60 mg IV 0600,1800 [facility] Last Admin: 12/14/21 06:16 Dose: 60 mg Heparin Sodium (Porcine) (Heparin 5,000 Unit/1 Ml Vial) 5,000 unit SUB-Q Q8HR [facility] Last Admin: 12/14/21 06:14 Dose: 5,000 unit Hydralazine HCl (Hydralazine 100 Mg Tab) 100 mg PO BID [facility] Last Admin: 12/13/21 21:28 Dose: 100 mg Azithromycin (Zithromax/Ns) 500 mg in 250 mls @ 250 mls/hr IV Q24H [facility] Stop: 12/17/21 13:29 Last Admin: 12/13/21 19:03 Dose: 250 mls/hr Ceftriaxone Sodium (Rocephin/Ns 1 Gm/50 Ml) 1 gm in 50 mls @ 100 mls/hr IV Q24H [facility]; Protocol Stop: 12/17/21 12:29 Last Admin: 12/13/21 19:02 Dose: 100 mls/hr Sodium Chloride (Nacl 0.9%) 100 mls @ 999 mls/hr IV DOMINGO PRN PRN Reason: Hypotension Morphine Sulfate (Morphine 4 Mg/1 Ml Inj) 2 mg IV Q4H PRN PRN Reason: Pain , Severe (7-10) Last Admin: 12/13/21 22:10 Dose: 2 mg Nifedipine (Nifedipine Xl 90 Mg Tab) 90 mg PO Q12HR [facility] Ondansetron HCl (Ondansetron 4 Mg/2 Ml Inj) 4 mg IV Q8H PRN PRN Reason: Nausea And Vomiting Oxycodone/Acetaminophen (Oxycodone /Acetaminophen 5-325mg Tab) 1 tab PO Q6H PRN PRN Reason: Pain, Moderate (4-6) Sodium Chloride (Sodium Chloride 0.9% 10 Ml Flush Syringe) 10 ml IV BID [facility] Last Admin: 12/13/21 21:19 Dose: 10 ml Sodium Chloride (Sodium Chloride 0.9% 10 Ml Flush Syringe) 10 ml IV PRN PRN PRN Reason: LINE FLUSH Valsartan (Valsartan 160mg Tab) 160 mg PO DAILY SHI Review of Systems All systems: negative Constitutional: fatigue, weakness Cardiovascular: chest pain, shortness of breath, dyspnea on exertion Respiratory: wheezing Exam - Vital Signs Vital signs: Vital Signs Temp Pulse Resp BP Pulse Ox 98.8 F 99 H 20 248/139 95 12/13/21 05:41 12/13/21 05:41 12/13/21 05:41 12/13/21 05:41 12/13/21 05:41 - General Appearance General appearance: well-developed, appears stated age EENT: ATNC Neck: Present: neck supple Respiratory: Rales Heart: regular Gastrointestinal: Present: normal Integumentary: no rash Neurologic: no focal deficit Musculoskeletal: Present: deferred Psychiatric: cooperative Results - Lab Results 12/14/21 04:56 12/14/21 04:56 Most recent lab results Calcium 10.0 mg/dL (8.4-10.2) 12/14/21 04:56 Assessment and Plan - Patient Problems (1) Fluid overload Current Visit: Yes Status: Acute Plan to address problem: Will optimize volume/respiratory status with adequate fluid removal during his dialysis treatments. Counseled him on the importance of fluid and sodium restriction. (2) ESRD (end stage renal disease) on dialysis Current Visit: Yes Status: Chronic Plan to address problem: Place on MWF HD schedule. Will assess daily for extra sequential UF treatment in order to further optimize his volume/respiratory status. (3) Hypertensive chronic kidney disease with stage 5 chronic kidney disease or end stage renal disease Current Visit: Yes Status: Chronic Plan to address problem: Monitor on current blood pressure regimen. Counseled on importance of compliance with medications along with low sodium diet and appropriate fluid restrictions. Do believe that optimizing his volume status will also improve his blood pressure control. (4) Anemia in chronic kidney disease (CKD) Current Visit: No Status: Chronic Plan to address problem: No acute indications for JON therapy at present levels. Will monitor carefully. (5) Secondary hyperparathyroidism (of renal origin) Current Visit: Yes Status: Chronic Plan to address problem: Continue home phosphate binder regimen.
[2021-12-14] MEDS: CALCITRIOL 0.5 MCG CAP PO SCH (09:14)
[2021-12-14] MEDS: hydrALAZINE 100 MG TAB PO SCH ×3 (09:15→22:55)
[2021-12-14] MEDS: carvediloL 25 MG TAB PO SCH ×3 (09:15→23:12)
[2021-12-14] MEDS: NIFEdipine XL 90 MG TAB PO SCH ×3 (09:15→22:55)
[2021-12-14] MEDS: VALSARTAN 160MG TAB PO SCH (09:15)
--- NOTE | 2021-12-14 13:03 | Progress Note ---
Assessment and Plan Assessment and plan: #Acute hypoxic respiratory failureimproving #Flash pulmonary edema with bilateral pleural effusionsimproving #Presumed community-acquired pneumonia - etiology: Volume overload - baseline oxygen requirements: Room air - supplemental oxygen: Nonrebreather 10 L nasal cannula Chest x-ray revealing right infrahilar infiltrate, trace bilateral pleural effusions. proBNP >70,000. Continue azithromycin 500 mg daily and Rocephin 1 g 24 hours daily. - Continue protocol: continue pulse oximetry, wean oxygen as tolerated, ordered incentive spirometry and educated patient on how to use it and its importance. Should improve as patient undergoes hemodialysis and blood pressure is better controlled. - continue to monitor #Hypertensive emergencyresolved On admission blood pressure 249/144 and requiring BiPAP for hypoxic respiratory failure Restarting home antihypertensives: Nifedipine 90 mg twice daily, p.o. hydralazine 100 mg twice daily, Coreg 25 mg twice daily. Discontinuing IV Lasix as the patient does not produce urine. Adding valsartan 160 mg daily. Should improve as patient undergoes hemodialysis. #ESRD on hemodialysis -Outpatient schedule: Friday -HD center: Unknown -Nephrology consulted; appreciate recs. -Renally dose medications and avoid nephrotoxic drugs. Renal diet. #Lactic acidosisresolved Lactic acid 3.6. Continue to trend. #Microcytic anemia #Probable anemia of chronic disease Hemoglobin 11.7 Ordering iron profile + ferritin. Transfuse if hemoglobin <7 or patient becomes symptomatic. #Elevated D-dimer D-dimer 1983 High clinical suspicion this is secondary to renal failure. Continue to monitor. #Elevated transaminases AST 89, ALT 64 Possibly secondary to volume overload. No clinical indication to intervene at this point. Continue to monitor. #Hypercalcemia Calcium 10.4 Should improve with hemodialysis. Continue to monitor. #Severe protein caloric malnutrition Albumin 1.7 Starting dietary supplementation. #Advanced care planning -Disease education conducted, care plan discussed, diagnoses discussed, prognosis discussed, and patient acknowledges understanding with care plan -Time: +30 min Disposition Plan: Continue medical management Total Time Spent with Patient (Minutes): 45 minutes History Interval history: It was found that the patient had removed his overnight BiPAP. At that time, the patient was hypoxic to the 70s and confused. He was reinitiated with supplemental oxygen and his mentation and oxygen saturations significantly improved. Patient was counseled at length by his RN about the importance of leaving his supplemental oxygen on. Patient expresses understanding. Hospitalist Physical - Constitutional Vitals: Temp Pulse Resp BP Pulse Ox 98.1 F 95 H 20 138/91 98 12/14/21 11:49 12/14/21 12:45 12/14/21 11:49 12/14/21 12:45 12/14/21 11:49 General appearance: Present: no acute distress, well-nourished - EENT Eyes: Present: PERRL, EOM intact ENT: hearing intact, clear oral mucosa, dentition normal - Neck Neck: Present: supple, normal ROM - Respiratory Respiratory effort: normal Respiratory: bilateral: rales (On nonrebreather 10 L) - Cardiovascular Rhythm: regular Heart Sounds: Present: S1 & S2 - Extremities Extremities: no ischemia, pulses intact, pulses symmetrical, No edema, normal temperature, normal color, Full ROM Peripheral Pulses: within normal limits - Abdominal General gastrointestinal: soft, non-tender, non-distended, normal bowel sounds - Integumentary Integumentary: Present: clear, warm, dry - Psychiatric Psychiatric: appropriate mood/affect, cooperative - Neurologic Neurologic: CNII-XII intact, moves all extremities - Allied Health Allied health notes reviewed: nursing Results - Labs CBC & Chem 7: 12/14/21 04:56 12/14/21 04:56 Labs: Laboratory Last Values WBC 16.3 K/mm3 (4.5-11.0) H 12/14/21 04:56 RBC 4.47 M/mm3 (3.65-5.03) 12/14/21 04:56 Hgb 11.5 gm/dl (11.8-15.2) L 12/14/21 04:56 Hct 36.9 % (35.5-45.6) 12/14/21 04:56 MCV 83 fl (84-94) L 12/14/21 04:56 MCH 26 pg (28-32) L 12/14/21 04:56 MCHC 31 % (32-34) L 12/14/21 04:56 RDW 23.0 % (13.2-15.2) H 12/14/21 04:56 Plt Count 200 K/mm3 (140-440) 12/14/21 04:56 Lymph % (Auto) 7.7 % (13.4-35.0) L 12/14/21 04:56 [place] % (Auto) 4.0 % (0.0-7.3) 12/14/21 04:56 Eos % (Auto) 0.0 % (0.0-4.3) 12/14/21 04:56 Baso % (Auto) 0.2 % (0.0-1.8) 12/14/21 04:56 Lymph # (Auto) 1.2 K/mm3 (1.2-5.4) 12/14/21 04:56 [place] # (Auto) 0.7 K/mm3 (0.0-0.8) 12/14/21 04:56 Eos # (Auto) 0.0 K/mm3 (0.0-0.4) 12/14/21 04:56 Baso # (Auto) 0.0 K/mm3 (0.0-0.1) 12/14/21 04:56 Seg Neutrophils % 88.1 % (40.0-70.0) H 12/14/21 04:56 Seg Neutrophils # 14.3 K/mm3 (1.8-7.7) H 12/14/21 04:56 D-Dimer 1983.44 ng/mlDDU (0-234) H 12/13/21 11:44 Sodium 144 mmol/L (137-145) 12/14/21 04:56 Potassium 5.2 mmol/L (3.6-5.0) H 12/14/21 04:56 Chloride 99.2 mmol/L (98-107) 12/14/21 04:56 Carbon Dioxide 25 mmol/L (22-30) 12/14/21 04:56 Anion Gap 25 mmol/L 12/14/21 04:56 BUN 56 mg/dL (9-20) H 12/14/21 04:56 Creatinine 9.1 mg/dL (0.8-1.3) H 12/14/21 04:56 Estimated GFR 8 ml/min 12/14/21 04:56 BUN/Creatinine Ratio 6 % 12/14/21 04:56 Glucose 106 mg/dL (75-100) H 12/14/21 04:56 Lactic Acid 1.40 mmol/L (0.7-2.0) 12/14/21 08:26 Calcium 10.0 mg/dL (8.4-10.2) 12/14/21 04:56 Total Bilirubin 0.80 mg/dL (0.1-1.2) 12/13/21 06:58 AST 89 units/L (5-40) H 12/13/21 06:58 ALT 64 units/L (7-56) H 12/13/21 06:58 Alkaline Phosphatase 117 units/L (35-129) 12/13/21 06:58 NT-Pro-B Natriuret Pep > 77648 pg/mL (0-450) H 12/13/21 11:44 Total Protein 7.8 g/dL (6.3-8.2) 12/13/21 06:58 Albumin 4.9 g/dL (3.9-5) 12/13/21 06:58 Albumin/Globulin Ratio 1.7 % 12/13/21 06:58 Procalcitonin 1.75 ng/mL (<0.15) 12/13/21 11:44 Hepatitis A IgM Ab Non-reactive (NonReactive) 12/13/21 11:44 Hep Bs Antigen Non-reactive (Negative) 12/13/21 11:44 Hep B Core IgM Ab Non-reactive (NonReactive) 12/13/21 11:44 Hepatitis C Antibody Non-reactive (NonReactive) 12/13/21 11:44 Active Medications - Current Medications Current Medications: Generic Name Dose Route Start Last Admin Trade Name Freq PRN Reason Stop Dose Admin Acetaminophen 650 mg 12/13/21 11:09 Acetaminophen 325 Mg Tab PO Q4H PRN Pain MILD(1-3)/Fever >100.5/B[facility]ERA Calcitriol 0.5 mcg 12/14/21 10:00 12/14/21 09:14 Calcitriol 0.5 Mcg Cap PO 0.5 mcg QDAY SHI Administration Carvedilol 25 mg 12/13/21 18:00 12/14/21 11:15 Carvedilol 25 Mg Tab PO 25 mg BID SHI Administration Heparin Sodium (Porcine) 5,000 unit 12/13/21 12:00 12/14/21 06:14 Heparin 5,000 Unit/1 Ml Vial SUB-Q 5,000 unit Q8HR SHI Administration Hydralazine HCl 100 mg 12/13/21 22:00 12/14/21 11:00 Hydralazine 100 Mg Tab PO 100 mg BID SHI Administration Azithromycin 500 mg in 250 mls @ 250 mls/hr 12/13/21 12:30 12/13/21 19:03 Zithromax/Ns IV 12/17/21 13:29 250 mls/hr Q24H SHI Administration Ceftriaxone Sodium 1 gm in 50 mls @ 100 mls/hr 12/13/21 12:00 12/13/21 19:02 Rocephin/Ns 1 Gm/50 Ml IV 12/17/21 12:29 100 mls/hr Q24H SHI Administration Protocol Sodium Chloride 100 mls @ 999 mls/hr 12/13/21 23:05 Nacl 0.9% IV DOMINGO PRN Hypotension Morphine Sulfate 2 mg 12/13/21 11:14 12/13/21 22:10 Morphine 4 Mg/1 Ml Inj IV 2 mg Q4H PRN Administration Pain , Severe (7-10) Nifedipine 90 mg 12/14/21 10:00 12/14/21 11:45 Nifedipine Xl 90 Mg Tab PO 90 mg Q12HR SHI Administration Ondansetron HCl 4 mg 12/13/21 11:09 Ondansetron 4 Mg/2 Ml Inj IV Q8H PRN Nausea And Vomiting Oxycodone/Acetaminophen 1 tab 12/13/21 11:14 Oxycodone /Acetaminophen 5-325mg Tab PO Q6H PRN Pain, Moderate (4-6) Sodium Chloride 10 ml 12/13/21 22:00 12/14/21 09:15 Sodium Chloride 0.9% 10 Ml Flush Syringe IV 10 ml BID SHI Administration Sodium Chloride 10 ml 12/13/21 11:09 Sodium Chloride 0.9% 10 Ml Flush Syringe IV PRN PRN LINE FLUSH Valsartan 160 mg 12/14/21 10:00 12/14/21 09:15 Valsartan 160mg Tab PO Not Given DAILY SHI
[2021-12-14] MEDS: AZITHROMYCIN/NS 500 MG/250 ML 500 MG/250 ML BAG IV SCH (14:04)
[2021-12-14] MEDS: cefTRIAXone/NS 1 GM/50 ML 1 GM/50 ML BAG IV SCH (14:04)
[2021-12-14 16:10] LABS: Iron 193 ug/dL (49-181); Total Iron Binding Capacity 209 mcg/dL (250-450)
[2021-12-14] MEDS: DEXAMETHASONE 4 MG TAB PO SCH (20:05)
[2021-12-15] MEDS: HEPARIN 5,000 UNIT/1 ML VIAL SUB-Q SCH ×3 (06:25→22:55)
[2021-12-15 06:38] LABS: Hematocrit 34.9 % (35.5-45.6); Hemoglobin 11.2 gm/dl (11.8-15.2); Mean Corpuscular HGB Conc 32 % (32-34); Mean Corpuscular Volume 81 fl (84-94); Platelet Count 174 K/mm3 (140-440)
[2021-12-15 06:39] LABS: Red Cell Distribution Width 22.7 % (13.2-15.2)
[2021-12-15 06:56] LABS: Calcium 10.1 mg/dL (8.4-10.2)
[2021-12-15 07:26] LABS: Basophils % (Manual) 0 % (0.0-1.8); Total Cells Counted 100
[2021-12-15 07:28] LABS: Anisocytosis 1+; Poikilocytosis 1+
[2021-12-15 07:29] LABS: Ovalocytes Few; Platelet Estimate Consistent w Auto; Tear Drop Cells Few
--- NOTE | 2021-12-15 09:41 | Progress Note ---
Assessment and Plan - Patient Problems (1) Fluid overload Current Visit: Yes Status: Acute Plan to address problem: Patient received hemodialysis for 2 days. Will get chest x-ray this morning and if still suggests pulmonary edema, dialyze again today otherwise Next hemodialysis will be on Friday. (2) Pneumonia due to COVID-19 virus Current Visit: Yes Status: Acute Plan to address problem: Continue management by infectious disease specialist. IV/PO Dexamethasone Supplemental oxygen/Respiratory support as needed Proning as tolerated Prophylactic anticoagulation Trend inflammatory markers to assess disease progression and prognosis (3) ESRD (end stage renal disease) on dialysis Current Visit: Yes Status: Chronic Plan to address problem: Continue hemodialysis (4) Hypertensive chronic kidney disease with stage 5 chronic kidney disease or end stage renal disease Current Visit: Yes Status: Chronic Plan to address problem: Follow-up blood pressure on current medications (5) Anemia Current Visit: No Status: Acute Qualifiers: Anemia type: unspecified type Qualified Code(s): D64.9 - Anemia, unspecified Plan to address problem: Continue erythropoietin on dialysis and follow-up hemoglobin Subjective Date of service: 12/15/21 Principal diagnosis: End-stage renal disease with fluid overload, COVID-19 pneumonia Interval history: Patient seen lying in bed. Shortness of breath improving. Cough also better. Objective - Exam Narrative Exam: Middle-aged -[place] male lying in bed in no acute distress HEENT: NCAT, pink conjunctiva, anicteric sclera Neck: Supple, no venous distention CVS: S1S2 RRR with no murmur, rub or gallop Chest: Clear to auscultation but breath sounds diminished Abdomen: Protuberant, soft, nontender, no organomegaly, bowel sounds are present Extremities: No edema Genitourinary deferred Skin warm and dry Neuro: Awake, alert no focal deficits - Vital Signs Vital signs: Vital Signs - 12hr 12/14/21 12/14/21 12/15/21 22:55 23:12 04:00 Temperature 98.8 F Pulse Rate 81 81 72 Respiratory 20 Rate Blood Pressure 134/80 Blood Pressure 134/80 [Right] O2 Sat by Pulse 100 Oximetry 12/15/21 06:20 Temperature 98.4 F Pulse Rate 72 Respiratory 20 Rate Blood Pressure Blood Pressure 128/81 [Right] O2 Sat by Pulse 100 Oximetry - Lab 12/15/21 05:56 12/15/21 05:56 Most recent lab results Calcium 10.1 mg/dL (8.4-10.2) 12/15/21 05:56 Medications & Allergies - Medications Allergies/Adverse Reactions: Allergies No Known Allergies Allergy (Verified 12/13/21 06:34) Home Medications: Home Medications Medication Instructions Recorded Confirmed Last Taken Type B Complex 11/Folic/C/Biot/Zinc 1 each PO DAILY #30 01/05/21 Unknown Rx [Dialyvite with Zinc Tablet] Calcitriol 0.5 mcg PO DAILY #30 01/05/21 Unknown Rx Colace CAP 100 mg DAILY 01/05/21 01/05/21 01/03/21 History Dialysate Lo Jerald 1.5% Soln 2,000 ml IP Q4H bag 01/05/21 Unknown Rx [Dianeal Low Calcium W/1.5% Dextrose] NIFEdipine [Afeditab Cr] 60 mg PO BID #60 01/05/21 Unknown Rx Velphoro (Nf) 1,500 mg PO TID 01/05/21 01/05/21 01/03/21 08:00 History carvediloL [Coreg] 25 mg PO BID #60 01/05/21 Unknown Rx carvediloL [Coreg] 25 mg PO BID@0800,1700 tablet 01/05/21 Unknown Rx hydrALAZINE [Apresoline TAB] 100 mg PO BID #60 tab 01/05/21 Unknown Rx NIFEdipine XL [Procardia Xl] 60 mg PO BID #60 tablet 01/06/21 Unknown Rx Sevelamer Carbonate [Renvela] 2,400 mg PO AC tablet 01/06/21 Unknown Rx Active Medications: Generic Name Dose Route Start Last Admin Trade Name Farooq PRN Reason Stop Dose Admin Acetaminophen 650 mg 12/13/21 11:09 Acetaminophen 325 Mg Tab PO Q4H PRN Pain MILD(1-3)/Fever >100.5/[place] Calcitriol 0.5 mcg 12/14/21 10:00 12/14/21 09:14 Calcitriol 0.5 Mcg Cap PO 0.5 mcg QDAY SHI Administration Carvedilol 25 mg 12/13/21 18:00 12/14/21 23:12 Carvedilol 25 Mg Tab PO 25 mg BID SHI Administration Dexamethasone 4 mg 12/14/21 15:00 12/14/21 20:05 Dexamethasone 4 Mg Tab PO 12/23/21 10:01 4 mg DAILY SHI Administration Heparin Sodium (Porcine) 5,000 unit 12/13/21 12:00 12/15/21 06:25 Heparin 5,000 Unit/1 Ml Vial SUB-Q 5,000 unit Q8HR SHI Administration Hydralazine HCl 100 mg 12/13/21 22:00 12/14/21 22:55 Hydralazine 100 Mg Tab PO 100 mg BID SHI Administration Sodium Chloride 100 mls @ 999 mls/hr 12/13/21 23:05 Nacl 0.9% IV DOMINGO PRN Hypotension Morphine Sulfate 2 mg 12/13/21 11:14 12/13/21 22:10 Morphine 4 Mg/1 Ml Inj IV 2 mg Q4H PRN Administration Pain , Severe (7-10) Nifedipine 90 mg 12/14/21 10:00 12/14/21 22:55 Nifedipine Xl 90 Mg Tab PO 90 mg Q12HR SHI Administration Ondansetron HCl 4 mg 12/13/21 11:09 Ondansetron 4 Mg/2 Ml Inj IV Q8H PRN Nausea And Vomiting Oxycodone/Acetaminophen 1 tab 12/13/21 11:14 Oxycodone /Acetaminophen 5-325mg Tab PO Q6H PRN Pain, Moderate (4-6) Sodium Chloride 10 ml 12/13/21 22:00 12/14/21 23:14 Sodium Chloride 0.9% 10 Ml Flush Syringe IV 10 ml BID SHI Administration Sodium Chloride 10 ml 12/13/21 11:09 Sodium Chloride 0.9% 10 Ml Flush Syringe IV PRN PRN LINE FLUSH Valsartan 160 mg 12/14/21 10:00 12/14/21 09:15 Valsartan 160mg Tab PO Not Given DAILY SHI
--- NOTE | 2021-12-15 10:19 | XRay Report ---
CHEST 1 VIEW INDICATION: Shortness of breath. COMPARISON: 12/13/2021 FINDINGS: Support devices: None. Heart: Stable. Lungs/Pleura: Pulmonary opacities have improved. No pleural abnormality. IMPRESSION: 1. Interval improvement. Signer Name: Juan Dykes MD Signed: 12/15/2021 10:15 AM Workstation Name: [id number]
[2021-12-15] MEDS: CALCITRIOL 0.5 MCG CAP PO SCH (10:32)
[2021-12-15] MEDS: VALSARTAN 160MG TAB PO SCH (10:32)
[2021-12-15] MEDS: DEXAMETHASONE 4 MG TAB PO SCH (10:32)
[2021-12-15] MEDS: NIFEdipine XL 90 MG TAB PO SCH ×2 (10:37→22:54)
[2021-12-15] MEDS: hydrALAZINE 100 MG TAB PO SCH ×2 (10:37→22:55)
[2021-12-15] MEDS: carvediloL 25 MG TAB PO SCH ×2 (10:37→22:54)
--- NOTE | 2021-12-15 12:04 | Progress Note ---
Assessment and Plan Assessment and plan: #COVID-19 pnuemonia #Acute hypoxic respiratory failureimproving #Flash pulmonary edema with bilateral pleural effusionsimproving #Presumed community-acquired pneumonia - etiology: Volume overload - baseline oxygen requirements: Room air - supplemental oxygen: 6 L nasal cannula Chest x-ray revealing right infrahilar infiltrate, trace bilateral pleural effusions. proBNP >70,000. Discontinue azithromycin 500 mg daily and Rocephin 1 g 24 hours daily. Continue po dexamethasone 8mg daily x10 days. - Continue protocol: continue pulse oximetry, wean oxygen as tolerated, ordered incentive spirometry and educated patient on how to use it and its importance. Should improve as patient undergoes hemodialysis and blood pressure is better controlled. - continue to monitor #Hypertensive emergencyresolved On admission blood pressure 249/144 and requiring BiPAP for hypoxic respiratory failure Continue home antihypertensives: Nifedipine 90 mg twice daily, p.o. hydralazine 100 mg twice daily, Coreg 25 mg twice daily, valsartan 160 mg daily. Should improve as patient undergoes hemodialysis. #ESRD on hemodialysis -Outpatient schedule: Friday -HD center: Unknown -Nephrology consulted; appreciate recs. -Renally dose medications and avoid nephrotoxic drugs. Renal diet. #Lactic acidosisresolved Lactic acid 3.6. Continue to trend. #Microcytic anemia #Probable anemia of chronic disease Hemoglobin 11.7 Iron 193, TIBC 209, ferritin >20K. Transfuse if hemoglobin <7 or patient becomes symptomatic. #Elevated D-dimer D-dimer 1983 High clinical suspicion this is secondary to renal failure. Continue to mo nitor. #Elevated transaminases AST 89, ALT 64 Possibly secondary to volume overload. No clinical indication to intervene at this point. Continue to monitor. #Hypercalcemia Calcium 10.4 Should improve with hemodialysis. Continue to monitor. #Severe protein caloric malnutrition Albumin 1.7 Continue dietary supplementation. Critical Care Billing: The high probability of a clinically significant, sudden or life threatening deterioration of the [respiratory] system(s) required my full and direct attention, intervention and personal management. The aggregate critical care time was [60] minutes. This time is in addition to time spent performing reported procedures but includes the following: [x] Data Review and interpretation [x] Patient assessment and monitoring of vital signs [x] Documentation [x] Medication orders and management Disposition Plan: Continue medical management Total Time Spent with Patient (Minutes): 45 min History Interval history: No acute events overnight. Hospitalist Physical - Constitutional Vitals: Temp Pulse Resp BP Pulse Ox 98.4 F 73 20 116/71 100 12/15/21 06:20 12/15/21 10:37 12/15/21 06:20 12/15/21 10:37 12/15/21 06:20 General appearance: Present: no acute distress, well-nourished - EENT Eyes: Present: PERRL, EOM intact ENT: hearing intact, clear oral mucosa, dentition normal - Neck Neck: Present: supple, normal ROM - Respiratory Respiratory effort: normal Respiratory: bilateral: diminished (6 L nasal cannula) - Cardiovascular Rhythm: regular Heart Sounds: Present: S1 & S2 - Extremities Extremities: no ischemia, pulses intact, pulses symmetrical, No edema, normal temperature, normal color Peripheral Pulses: within normal limits - Abdominal General gastrointestinal: soft, non-tender, non-distended, normal bowel sounds - Integumentary Integumentary: Present: clear, warm, dry - Psychiatric Psychiatric: appropriate mood/affect, intact judgment & insight, memory intact, cooperative - Neurologic Neurologic: CNII-XII intact, moves all extremities - Allied Health Allied health notes reviewed: nursing Results - Labs CBC & Chem 7: 12/15/21 05:56 12/15/21 05:56 Labs: Laboratory Last Values WBC 10.7 K/mm3 (4.5-11.0) 12/15/21 05:56 RBC 4.30 M/mm3 (3.65-5.03) 12/15/21 05:56 Hgb 11.2 gm/dl (11.8-15.2) L 12/15/21 05:56 Hct 34.9 % (35.5-45.6) L 12/15/21 05:56 MCV 81 fl (84-94) L 12/15/21 05:56 MCH 26 pg (28-32) L 12/15/21 05:56 MCHC 32 % (32-34) 12/15/21 05:56 RDW 22.7 % (13.2-15.2) H 12/15/21 05:56 Plt Count 174 K/mm3 (140-440) 12/15/21 05:56 Lymph % (Auto) 7.7 % (13.4-35.0) L 12/14/21 04:56 [place] % (Auto) 4.0 % (0.0-7.3) 12/14/21 04:56 Eos % (Auto) 0.0 % (0.0-4.3) 12/14/21 04:56 Baso % (Auto) Automotive Technician Instructor 12/15/21 05:56 Lymph # (Auto) 1.2 K/mm3 (1.2-5.4) 12/14/21 04:56 [place] # (Auto) 0.7 K/mm3 (0.0-0.8) 12/14/21 04:56 Eos # (Auto) 0.0 K/mm3 (0.0-0.4) 12/14/21 04:56 Baso # (Auto) 0.0 K/mm3 (0.0-0.1) 12/14/21 04:56 Add Manual Diff Complete 12/15/21 05:56 Total Counted 100 12/15/21 05:56 Seg Neutrophils % 88.1 % (40.0-70.0) H 12/14/21 04:56 Seg Neuts % (Manual) 85.0 % (40.0-70.0) H 12/15/21 05:56 Band Neutrophils % 0 % 12/15/21 05:56 Lymphocytes % (Manual) 11.0 % (13.4-35.0) L 12/15/21 05:56 Reactive Lymphs % (Man) 0 % 12/15/21 05:56 Monocytes % (Manual) 2.0 % (0.0-7.3) 12/15/21 05:56 Eosinophils % (Manual) 2.0 % (0.0-4.3) 12/15/21 05:56 Basophils % (Manual) 0 % (0.0-1.8) 12/15/21 05:56 Metamyelocytes % 0 % 12/15/21 05:56 Myelocytes % 0 % 12/15/21 05:56 Promyelocytes % 0 % 12/15/21 05:56 Blast Cells % 0 % 12/15/21 05:56 Nucleated RBC % Not Reportable 12/15/21 05:56 Seg Neutrophils # 14.3 K/mm3 (1.8-7.7) H 12/14/21 04:56 Seg Neutrophils # Man 9.1 K/mm3 (1.8-7.7) H 12/15/21 05:56 Band Neutrophils # 0.0 K/mm3 12/15/21 05:56 Lymphocytes # (Manual) 1.2 K/mm3 (1.2-5.4) 12/15/21 05:56 Abs React Lymphs (Man) 0.0 K/mm3 12/15/21 05:56 Monocytes # (Manual) 0.2 K/mm3 (0.0-0.8) 12/15/21 05:56 Eosinophils # (Manual) 0.2 K/mm3 (0.0-0.4) 12/15/21 05:56 Basophils # (Manual) 0.0 K/mm3 (0.0-0.1) 12/15/21 05:56 Metamyelocytes # 0.0 K/mm3 12/15/21 05:56 Myelocytes # 0.0 K/mm3 12/15/21 05:56 Promyelocytes # 0.0 K/mm3 12/15/21 05:56 Blast Cells # 0.0 K/mm3 12/15/21 05:56 WBC Morphology Not Reportable 12/15/21 05:56 Hypersegmented Neuts Not Reportable 12/15/21 05:56 Hyposegmented Neuts Not Reportable 12/15/21 05:56 Hypogranular Neuts Not Reportable 12/15/21 05:56 Smudge Cells Not Reportable 12/15/21 05:56 Toxic Granulation Not Reportable 12/15/21 05:56 Toxic Vacuolation Not Reportable 12/15/21 05:56 Dohle Bodies Not Reportable 12/15/21 05:56 Pelger-Huet Anomaly Not Reportable 12/15/21 05:56 Christine Rods Not Reportable 12/15/21 05:56 Platelet Estimate Consistent w auto 12/15/21 05:56 Clumped Platelets Not Reportable 12/15/21 05:56 Plt Clumps, EDTA Not Reportable 12/15/21 05:56 Large Platelets Not Reportable 12/15/21 05:56 Giant Platelets Not Reportable 12/15/21 05:56 Platelet Satelliting Not Reportable 12/15/21 05:56 Plt Morphology Comment Not Reportable 12/15/21 05:56 RBC Morphology Not Reportable 12/15/21 05:56 Dimorphic RBCs Not Reportable 12/15/21 05:56 Polychromasia Not Reportable 12/15/21 05:56 Hypochromasia Not Reportable 12/15/21 05:56 Poikilocytosis 1+ 12/15/21 05:56 Anisocytosis 1+ 12/15/21 05:56 Microcytosis Few 12/15/21 05:56 Macrocytosis Not Reportable 12/15/21 05:56 Spherocytes Not Reportable 12/15/21 05:56 Pappenheimer Bodies Not Reportable 12/15/21 05:56 Sickle Cells Not Reportable 12/15/21 05:56 Target Cells Not Reportable 12/15/21 05:56 Tear Drop Cells Few 12/15/21 05:56 Ovalocytes Few 12/15/21 05:56 Helmet Cells Not Reportable 12/15/21 05:56 [place] Bodies Not Reportable 12/15/21 05:56 [place] Rings Not Reportable 12/15/21 05:56 [place] Cells Not Reportable 12/15/21 05:56 Bite Cells Not Reportable 12/15/21 05:56 Crenated Cell Not Reportable 12/15/21 05:56 Elliptocytes Few 12/15/21 05:56 Acanthocytes (Spur) Few 12/15/21 05:56 Rouleaux Not Reportable 12/15/21 05:56 Hemoglobin C Crystals Not Reportable 12/15/21 05:56 Schistocytes Not Reportable 12/15/21 05:56 Malaria parasites Not Reportable 12/15/21 05:56 Reyes Bodies Not Reportable 12/15/21 05:56 Hem Pathologist Commnt No 12/15/21 05:56 D-Dimer 1983.44 ng/mlDDU (0-234) H 12/13/21 11:44 Sodium 142 mmol/L (137-145) 12/15/21 05:56 Potassium 4.3 mmol/L (3.6-5.0) 12/15/21 05:56 Chloride 99.1 mmol/L (98-107) 12/15/21 05:56 Carbon Dioxide 28 mmol/L (22-30) 12/15/21 05:56 Anion Gap 19 mmol/L 12/15/21 05:56 BUN 48 mg/dL (9-20) H 12/15/21 05:56 Creatinine 8.1 mg/dL (0.8-1.3) H 12/15/21 05:56 Estimated GFR 9 ml/min 12/15/21 05:56 BUN/Creatinine Ratio 6 % 12/15/21 05:56 Glucose 99 mg/dL (75-100) 12/15/21 05:56 Lactic Acid 1.40 mmol/L (0.7-2.0) 12/14/21 08:26 Calcium 10.1 mg/dL (8.4-10.2) 12/15/21 05:56 Iron 193 ug/dL (49-181) H 12/14/21 13:38 TIBC 209 mcg/dL (250-450) L 12/14/21 13:38 Ferritin > 2000.0 ng/mL (30.0-300.0) H 12/14/21 13:38 Total Bilirubin 0.80 mg/dL (0.1-1.2) 12/13/21 06:58 AST 89 units/L (5-40) H 12/13/21 06:58 ALT 64 units/L (7-56) H 12/13/21 06:58 Alkaline Phosphatase 117 units/L (35-129) 12/13/21 06:58 NT-Pro-B Natriuret Pep > 88278 pg/mL (0-450) H 12/13/21 11:44 Total Protein 7.8 g/dL (6.3-8.2) 12/13/21 06:58 Albumin 4.9 g/dL (3.9-5) 12/13/21 06:58 Albumin/Globulin Ratio 1.7 % 12/13/21 06:58 Procalcitonin 1.75 ng/mL (<0.15) 12/13/21 11:44 Coronavirus (PCR) Positive (Negative) A 12/14/21 09:07 Hepatitis A IgM Ab Non-reactive (NonReactive) 12/13/21 11:44 Hep Bs Antigen Non-reactive (Negative) 12/13/21 11:44 Hep B Core IgM Ab Non-reactive (NonReactive) 12/13/21 11:44 Hepatitis C Antibody Non-reactive (NonReactive) 12/13/21 11:44 Active Medications - Current Medications Current Medications: Generic Name Dose Route Start Last Admin Trade Name Freq PRN Reason Stop Dose Admin Acetaminophen 650 mg 12/13/21 11:09 Acetaminophen 325 Mg Tab PO Q4H PRN Pain MILD(1-3)/Fever >100.5/BARRERA Calcitriol 0.5 mcg 12/14/21 10:00 12/15/21 10:32 Calcitriol 0.5 Mcg Cap PO 0.5 mcg QDAY SHI Administration Carvedilol 25 mg 12/13/21 18:00 12/15/21 10:37 Carvedilol 25 Mg Tab PO 25 mg BID SHI Administration Dexamethasone 4 mg 12/14/21 15:00 12/15/21 10:32 Dexamethasone 4 Mg Tab PO 12/23/21 10:01 4 mg DAILY SHI Administration Heparin Sodium (Porcine) 5,000 unit 12/13/21 12:00 12/15/21 06:25 Heparin 5,000 Unit/1 Ml Vial SUB-Q 5,000 unit Q8HR SHI Administration Hydralazine HCl 100 mg 12/13/21 22:00 12/15/21 10:37 Hydralazine 100 Mg Tab PO 100 mg BID SHI Administration Sodium Chloride 100 mls @ 999 mls/hr 12/13/21 23:05 Nacl 0.9% IV DOMINGO PRN Hypotension Morphine Sulfate 2 mg 12/13/21 11:14 12/13/21 22:10 Morphine 4 Mg/1 Ml Inj IV 2 mg Q4H PRN Administration Pain , Severe (7-10) Nifedipine 90 mg 12/14/21 10:00 12/15/21 10:37 Nifedipine Xl 90 Mg Tab PO 90 mg Q12HR SHI Administration Ondansetron HCl 4 mg 12/13/21 11:09 Ondansetron 4 Mg/2 Ml Inj IV Q8H PRN Nausea And Vomiting Oxycodone/Acetaminophen 1 tab 12/13/21 11:14 Oxycodone /Acetaminophen 5-325mg Tab PO Q6H PRN Pain, Moderate (4-6) Sodium Chloride 10 ml 12/13/21 22:00 12/15/21 10:32 Sodium Chloride 0.9% 10 Ml Flush Syringe IV 10 ml BID SHI Administration Sodium Chloride 10 ml 12/13/21 11:09 Sodium Chloride 0.9% 10 Ml Flush Syringe IV PRN PRN LINE FLUSH Valsartan 160 mg 12/14/21 10:00 12/15/21 10:32 Valsartan 160mg Tab PO 160 mg DAILY SHI Administration
--- NOTE | 2021-12-15 13:16 | Electrocardiograph Report ---
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
[2021-12-16] MEDS: HEPARIN 5,000 UNIT/1 ML VIAL SUB-Q SCH ×3 (06:24→22:16)
[2021-12-16 07:38] LABS: Calcium 9.7 mg/dL (8.4-10.2)
--- NOTE | 2021-12-16 07:49 | Progress Note ---
Assessment and Plan Assessment and plan: #COVID-19 pnuemonia #Acute hypoxic respiratory failureimproving #Flash pulmonary edema with bilateral pleural effusionsimproving #Presumed community-acquired pneumonia - etiology: Volume overload - baseline oxygen requirements: Room air - supplemental oxygen: 2 L nasal cannula Chest x-ray revealing right infrahilar infiltrate, trace bilateral pleural effusions. proBNP >70,000. Discontinue azithromycin 500 mg daily and Rocephin 1 g 24 hours daily. Continue po dexamethasone 8mg daily x10 days. - Continue protocol: continue pulse oximetry, wean oxygen as tolerated, ordered incentive spirometry and educated patient on how to use it and its importance. Should improve as patient undergoes hemodialysis and blood pressure is better controlled. - continue to monitor #Hypertensive emergencyresolved On admission blood pressure 249/144 and requiring BiPAP for hypoxic respiratory failure Continue home antihypertensives: Nifedipine 90 mg twice daily, p.o. hydralazine 100 mg twice daily, Coreg 25 mg twice daily, valsartan 160 mg daily. Should improve as patient undergoes hemodialysis. #ESRD on hemodialysis -Outpatient schedule: Friday -HD center: Unknown -Nephrology consulted; appreciate recs. -Renally dose medications and avoid nephrotoxic drugs. Renal diet. #Lactic acidosisresolved Lactic acid 3.6. Continue to trend. #Microcytic anemia #Probable anemia of chronic disease Hemoglobin 11.7 Iron 193, TIBC 209, ferritin >20K. Transfuse if hemoglobin <7 or patient becomes symptomatic. #Elevated D-dimer D-dimer 1983 High clinical suspicion this is secondary to renal failure. Continue to mo nitor. #Elevated transaminases AST 89, ALT 64 Possibly secondary to volume overload. No clinical indication to intervene at this point. Continue to monitor. #Hypercalcemia Calcium 10.4 Should improve with hemodialysis. Continue to monitor. #Severe protein caloric malnutrition Albumin 1.7 Continue dietary supplementation. Critical Care Billing: The high probability of a clinically significant, sudden or life threatening deterioration of the [respiratory] system(s) required my full and direct attention, intervention and personal management. The aggregate critical care time was [60] minutes. This time is in addition to time spent performing reported procedures but includes the following: [x] Data Review and interpretation [x] Patient assessment and monitoring of vital signs [x] Documentation [x] Medication orders and management Disposition Plan: Continue medical management Total Time Spent with Patient (Minutes): 45 minutes History Interval history: No acute events overnight. Hospitalist Physical - Constitutional Vitals: Temp Pulse Resp BP Pulse Ox 98.1 F 68 16 122/74 100 12/16/21 05:19 12/16/21 05:19 12/16/21 05:19 12/16/21 05:19 12/16/21 05:19 General appearance: Present: no acute distress, well-nourished - EENT Eyes: Present: PERRL, EOM intact ENT: hearing intact, clear oral mucosa, dentition normal - Neck Neck: Present: supple, normal ROM - Respiratory Respiratory effort: normal Respiratory: bilateral: diminished (on 2L NC) - Cardiovascular Rhythm: regular Heart Sounds: Present: S1 & S2 - Extremities Extremities: no ischemia, pulses intact, pulses symmetrical, No edema, normal temperature, normal color Peripheral Pulses: within normal limits - Abdominal General gastrointestinal: soft, non-tender, non-distended, normal bowel sounds - Integumentary Integumentary: Present: clear, warm, dry - Psychiatric Psychiatric: appropriate mood/affect, intact judgment & insight, memory intact, cooperative - Neurologic Neurologic: CNII-XII intact, moves all extremities - Allied Health Allied health notes reviewed: nursing Results - Labs CBC & Chem 7: 12/15/21 05:56 12/16/21 06:58 Labs: Laboratory Last Values WBC 10.7 K/mm3 (4.5-11.0) 12/15/21 05:56 RBC 4.30 M/mm3 (3.65-5.03) 12/15/21 05:56 Hgb 11.2 gm/dl (11.8-15.2) L 12/15/21 05:56 Hct 34.9 % (35.5-45.6) L 12/15/21 05:56 MCV 81 fl (84-94) L 12/15/21 05:56 MCH 26 pg (28-32) L 12/15/21 05:56 MCHC 32 % (32-34) 12/15/21 05:56 RDW 22.7 % (13.2-15.2) H 12/15/21 05:56 Plt Count 174 K/mm3 (140-440) 12/15/21 05:56 Lymph % (Auto) 7.7 % (13.4-35.0) L 12/14/21 04:56 [place] % (Auto) 4.0 % (0.0-7.3) 12/14/21 04:56 Eos % (Auto) 0.0 % (0.0-4.3) 12/14/21 04:56 Baso % (Auto) [place] 12/15/21 05:56 Lymph # (Auto) 1.2 K/mm3 (1.2-5.4) 12/14/21 04:56 [place] # (Auto) 0.7 K/mm3 (0.0-0.8) 12/14/21 04:56 Eos # (Auto) 0.0 K/mm3 (0.0-0.4) 12/14/21 04:56 Baso # (Auto) 0.0 K/mm3 (0.0-0.1) 12/14/21 04:56 Add Manual Diff Complete 12/15/21 05:56 Total Counted 100 12/15/21 05:56 Seg Neutrophils % 88.1 % (40.0-70.0) H 12/14/21 04:56 Seg Neuts % (Manual) 85.0 % (40.0-70.0) H 12/15/21 05:56 Band Neutrophils % 0 % 12/15/21 05:56 Lymphocytes % (Manual) 11.0 % (13.4-35.0) L 12/15/21 05:56 Reactive Lymphs % (Man) 0 % 12/15/21 05:56 Monocytes % (Manual) 2.0 % (0.0-7.3) 12/15/21 05:56 Eosinophils % (Manual) 2.0 % (0.0-4.3) 12/15/21 05:56 Basophils % (Manual) 0 % (0.0-1.8) 12/15/21 05:56 Metamyelocytes % 0 % 12/15/21 05:56 Myelocytes % 0 % 12/15/21 05:56 Promyelocytes % 0 % 12/15/21 05:56 Blast Cells % 0 % 12/15/21 05:56 Nucleated RBC % Not Reportable 12/15/21 05:56 Seg Neutrophils # 14.3 K/mm3 (1.8-7.7) H 12/14/21 04:56 Seg Neutrophils # Man 9.1 K/mm3 (1.8-7.7) H 12/15/21 05:56 Band Neutrophils # 0.0 K/mm3 12/15/21 05:56 Lymphocytes # (Manual) 1.2 K/mm3 (1.2-5.4) 12/15/21 05:56 Abs React Lymphs (Man) 0.0 K/mm3 12/15/21 05:56 Monocytes # (Manual) 0.2 K/mm3 (0.0-0.8) 12/15/21 05:56 Eosinophils # (Manual) 0.2 K/mm3 (0.0-0.4) 12/15/21 05:56 Basophils # (Manual) 0.0 K/mm3 (0.0-0.1) 12/15/21 05:56 Metamyelocytes # 0.0 K/mm3 12/15/21 05:56 Myelocytes # 0.0 K/mm3 12/15/21 05:56 Promyelocytes # 0.0 K/mm3 12/15/21 05:56 Blast Cells # 0.0 K/mm3 12/15/21 05:56 WBC Morphology Not Reportable 12/15/21 05:56 Hypersegmented Neuts Not Reportable 12/15/21 05:56 Hyposegmented Neuts Not Reportable 12/15/21 05:56 Hypogranular Neuts Not Reportable 12/15/21 05:56 Smudge Cells Not Reportable 12/15/21 05:56 Toxic Granulation Not Reportable 12/15/21 05:56 Toxic Vacuolation Not Reportable 12/15/21 05:56 Dohle Bodies Not Reportable 12/15/21 05:56 Pelger-Huet Anomaly Not Reportable 12/15/21 05:56 Christine Rods Not Reportable 12/15/21 05:56 Platelet Estimate Consistent w auto 12/15/21 05:56 Clumped Platelets Not Reportable 12/15/21 05:56 Plt Clumps, EDTA Not Reportable 12/15/21 05:56 Large Platelets Not Reportable 12/15/21 05:56 Giant Platelets Not Reportable 12/15/21 05:56 Platelet Satelliting Not Reportable 12/15/21 05:56 Plt Morphology Comment Not Reportable 12/15/21 05:56 RBC Morphology Not Reportable 12/15/21 05:56 Dimorphic RBCs Not Reportable 12/15/21 05:56 Polychromasia Not Reportable 12/15/21 05:56 Hypochromasia Not Reportable 12/15/21 05:56 Poikilocytosis 1+ 12/15/21 05:56 Anisocytosis 1+ 12/15/21 05:56 Microcytosis Few 12/15/21 05:56 Macrocytosis Not Reportable 12/15/21 05:56 Spherocytes Not Reportable 12/15/21 05:56 Pappenheimer Bodies Not Reportable 12/15/21 05:56 Sickle Cells Not Reportable 12/15/21 05:56 Target Cells Not Reportable 12/15/21 05:56 Tear Drop Cells Few 12/15/21 05:56 Ovalocytes Few 12/15/21 05:56 Helmet Cells Not Reportable 12/15/21 05:56 [place] Bodies Not Reportable 12/15/21 05:56 [place] Rings Not Reportable 12/15/21 05:56 [place] Cells Not Reportable 12/15/21 05:56 Bite Cells Not Reportable 12/15/21 05:56 Crenated Cell Not Reportable 12/15/21 05:56 Elliptocytes Few 12/15/21 05:56 Acanthocytes (Spur) Few 12/15/21 05:56 Rouleaux Not Reportable 12/15/21 05:56 Hemoglobin C Crystals Not Reportable 12/15/21 05:56 Schistocytes Not Reportable 12/15/21 05:56 Malaria parasites Not Reportable 12/15/21 05:56 Reyes Bodies Not Reportable 12/15/21 05:56 Hem Pathologist Commnt No 12/15/21 05:56 D-Dimer 1983.44 ng/mlDDU (0-234) H 12/13/21 11:44 Sodium 137 mmol/L (137-145) 12/16/21 06:58 Potassium 5.0 mmol/L (3.6-5.0) 12/16/21 06:58 Chloride 95.6 mmol/L (98-107) L 12/16/21 06:58 Carbon Dioxide 23 mmol/L (22-30) 12/16/21 06:58 Anion Gap 23 mmol/L 12/16/21 06:58 BUN 72 mg/dL (9-20) H 12/16/21 06:58 Creatinine 11.3 mg/dL (0.8-1.3) H 12/16/21 06:58 Estimated GFR 6 ml/min 12/16/21 06:58 BUN/Creatinine Ratio 6 % 12/16/21 06:58 Glucose 105 mg/dL (75-100) H 12/16/21 06:58 Lactic Acid 1.40 mmol/L (0.7-2.0) 12/14/21 08:26 Calcium 9.7 mg/dL (8.4-10.2) 12/16/21 06:58 Phosphorus 4.80 mg/dL (2.5-4.5) H 12/16/21 06:58 Magnesium 2.60 mg/dL (1.7-2.3) H 12/16/21 06:58 Iron 193 ug/dL (49-181) H 12/14/21 13:38 TIBC 209 mcg/dL (250-450) L 12/14/21 13:38 Ferritin > 2000.0 ng/mL (30.0-300.0) H 12/14/21 13:38 Total Bilirubin 0.80 mg/dL (0.1-1.2) 12/13/21 06:58 AST 89 units/L (5-40) H 12/13/21 06:58 ALT 64 units/L (7-56) H 12/13/21 06:58 Alkaline Phosphatase 117 units/L (35-129) 12/13/21 06:58 NT-Pro-B Natriuret Pep > 32062 pg/mL (0-450) H 12/13/21 11:44 Total Protein 7.8 g/dL (6.3-8.2) 12/13/21 06:58 Albumin 4.9 g/dL (3.9-5) 12/13/21 06:58 Albumin/Globulin Ratio 1.7 % 12/13/21 06:58 Procalcitonin 1.75 ng/mL (<0.15) 12/13/21 11:44 Coronavirus (PCR) Positive (Negative) A 12/14/21 09:07 Hepatitis A IgM Ab Non-reactive (NonReactive) 12/13/21 11:44 Hep Bs Antigen Non-reactive (Negative) 12/13/21 11:44 Hep B Core IgM Ab Non-reactive (NonReactive) 12/13/21 11:44 Hepatitis C Antibody Non-reactive (NonReactive) 12/13/21 11:44 [place]/IV: Voiding Method Toilet Active Medications - Current Medications Current Medications: Generic Name Dose Route Start Last Admin Trade Name Freq PRN Reason Stop Dose Admin Acetaminophen 650 mg 12/13/21 11:09 Acetaminophen 325 Mg Tab PO Q4H PRN Pain MILD(1-3)/Fever >100.5/BARRERA Calcitriol 0.5 mcg 12/14/21 10:00 12/15/21 10:32 Calcitriol 0.5 Mcg Cap PO 0.5 mcg QDAY SHI Administration Carvedilol 25 mg 12/13/21 18:00 12/15/21 22:54 Carvedilol 25 Mg Tab PO 25 mg BID SHI Administration Dexamethasone 4 mg 12/14/21 15:00 12/15/21 10:32 Dexamethasone 4 Mg Tab PO 12/23/21 10:01 4 mg DAILY SHI Administration Heparin Sodium (Porcine) 5,000 unit 12/13/21 12:00 12/16/21 06:24 Heparin 5,000 Unit/1 Ml Vial SUB-Q 5,000 unit Q8HR SHI Administration Hydralazine HCl 100 mg 12/13/21 22:00 12/15/21 22:55 Hydralazine 100 Mg Tab PO 100 mg BID SHI Administration Sodium Chloride 100 mls @ 999 mls/hr 12/13/21 23:05 Nacl 0.9% IV DOMINGO PRN Hypotension Morphine Sulfate 2 mg 12/13/21 11:14 12/13/21 22:10 Morphine 4 Mg/1 Ml Inj IV 2 mg Q4H PRN Administration Pain , Severe (7-10) Nifedipine 90 mg 12/14/21 10:00 12/15/21 22:54 Nifedipine Xl 90 Mg Tab PO 90 mg Q12HR SHI Administration Ondansetron HCl 4 mg 12/13/21 11:09 Ondansetron 4 Mg/2 Ml Inj IV Q8H PRN Nausea And Vomiting Oxycodone/Acetaminophen 1 tab 12/13/21 11:14 Oxycodone /Acetaminophen 5-325mg Tab PO Q6H PRN Pain, Moderate (4-6) Sodium Chloride 10 ml 12/13/21 22:00 12/15/21 22:55 Sodium Chloride 0.9% 10 Ml Flush Syringe IV 10 ml BID SHI Administration Sodium Chloride 10 ml 12/13/21 11:09 Sodium Chloride 0.9% 10 Ml Flush Syringe IV PRN PRN LINE FLUSH Valsartan 160 mg 12/14/21 10:00 12/15/21 10:32 Valsartan 160mg Tab PO 160 mg DAILY SHI Administration
[2021-12-16] MEDS: NIFEdipine XL 90 MG TAB PO SCH ×2 (10:30→22:15)
[2021-12-16] MEDS: CALCITRIOL 0.5 MCG CAP PO SCH (10:30)
[2021-12-16] MEDS: DEXAMETHASONE 4 MG TAB PO SCH (10:30)
[2021-12-16] MEDS: carvediloL 25 MG TAB PO SCH ×2 (10:35→22:16)
[2021-12-16] MEDS: hydrALAZINE 100 MG TAB PO SCH ×2 (10:35→22:16)
[2021-12-16] MEDS: VALSARTAN 160MG TAB PO SCH (10:35)
--- NOTE | 2021-12-16 15:35 | Progress Note ---
Assessment and Plan - Patient Problems (1) Fluid overload Current Visit: Yes Status: Acute Plan to address problem: Patient received hemodialysis for 2 days. No overt signs of fluid overload. Next hemodialysis tomorrow (2) Pneumonia due to COVID-19 virus Current Visit: Yes Status: Acute Plan to address problem: Continue management by infectious disease specialist. IV/PO Dexamethasone Supplemental oxygen/Respiratory support as needed Proning as tolerated Prophylactic anticoagulation Trend inflammatory markers to assess disease progression and prognosis (3) ESRD (end stage renal disease) on dialysis Current Visit: Yes Status: Chronic Plan to address problem: Continue hemodialysis (4) Hypertensive chronic kidney disease with stage 5 chronic kidney disease or end stage renal disease Current Visit: Yes Status: Chronic Plan to address problem: Follow-up blood pressure on current medications (5) Anemia Current Visit: No Status: Acute Qualifiers: Anemia type: unspecified type Qualified Code(s): D64.9 - Anemia, unspecified Plan to address problem: Continue erythropoietin on dialysis and follow-up hemoglobin Subjective Date of service: 12/16/21 Principal diagnosis: End-stage renal disease with fluid overload, COVID-19 pneumonia Interval history: Patient seen lying in bed. He has no complaints today. He feels better. Shortness of breath improving. No nausea vomiting Objective - Exam Narrative Exam: Middle-aged -[place] male lying in bed in no acute distress HEENT: NCAT, pink conjunctiva, anicteric sclera Neck: Supple, no venous distention CVS: S1S2 RRR with no murmur, rub or gallop Chest: Clear to auscultation but breath sounds diminished Abdomen: Protuberant, soft, nontender, no organomegaly, bowel sounds are present Extremities: No edema Genitourinary deferred Skin warm and dry Neuro: Awake, alert no focal deficits - Vital Signs Vital signs: Vital Signs - 12hr 12/16/21 12/16/21 12/16/21 04:00 05:19 09:16 Temperature 98.1 F Pulse Rate 68 68 Respiratory 16 Rate Blood Pressure 122/74 Blood Pressure [Right] O2 Sat by Pulse 100 100 Oximetry 12/16/21 12/16/21 10:35 11:00 Temperature 98.3 F Pulse Rate 66 66 Respiratory 17 Rate Blood Pressure 113/68 Blood Pressure 113/68 [Right] O2 Sat by Pulse 99 Oximetry - Lab 12/15/21 05:56 12/16/21 06:58 Most recent lab results Calcium 9.7 mg/dL (8.4-10.2) 12/16/21 06:58 Phosphorus 4.80 mg/dL (2.5-4.5) H 12/16/21 06:58 Magnesium 2.60 mg/dL (1.7-2.3) H 12/16/21 06:58 Medications & Allergies - Medications Allergies/Adverse Reactions: Allergies No Known Allergies Allergy (Verified 12/13/21 06:34) Home Medications: Home Medications Medication Instructions Recorded Confirmed Last Taken Type B Complex 11/Folic/C/Biot/Zinc 1 each PO DAILY #30 01/05/21 Unknown Rx [Dialyvite with Zinc Tablet] Calcitriol 0.5 mcg PO DAILY #30 01/05/21 Unknown Rx Colace CAP 100 mg DAILY 01/05/21 01/05/21 01/03/21 History Dialysate Lo Jerald 1.5% Soln 2,000 ml IP Q4H bag 01/05/21 Unknown Rx [Dianeal Low Calcium W/1.5% Dextrose] NIFEdipine [Afeditab Cr] 60 mg PO BID #60 01/05/21 Unknown Rx Velphoro (Nf) 1,500 mg PO TID 01/05/21 01/05/21 01/03/21 08:00 History carvediloL [Coreg] 25 mg PO BID #60 01/05/21 Unknown Rx carvediloL [Coreg] 25 mg PO BID@0800,1700 tablet 01/05/21 Unknown Rx hydrALAZINE [Apresoline TAB] 100 mg PO BID #60 tab 01/05/21 Unknown Rx NIFEdipine XL [Procardia Xl] 60 mg PO BID #60 tablet 01/06/21 Unknown Rx Sevelamer Carbonate [Renvela] 2,400 mg PO AC tablet 01/06/21 Unknown Rx Active Medications: Generic Name Dose Route Start Last Admin Trade Name Freq PRN Reason Stop Dose Admin Acetaminophen 650 mg 12/13/21 11:09 Acetaminophen 325 Mg Tab PO Q4H PRN Pain MILD(1-3)/Fever >100.5/BARRERA Calcitriol 0.5 mcg 12/14/21 10:00 12/16/21 10:30 Calcitriol 0.5 Mcg Cap PO 0.5 mcg QDAY SHI Administration Carvedilol 25 mg 12/13/21 18:00 12/16/21 10:35 Carvedilol 25 Mg Tab PO 25 mg BID SHI Administration Dexamethasone 4 mg 12/14/21 15:00 12/16/21 10:30 Dexamethasone 4 Mg Tab PO 12/23/21 10:01 4 mg DAILY SHI Administration Heparin Sodium (Porcine) 5,000 unit 12/13/21 12:00 12/16/21 14:15 Heparin 5,000 Unit/1 Ml Vial SUB-Q 5,000 unit Q8HR SHI Administration Hydralazine HCl 100 mg 12/13/21 22:00 12/16/21 10:35 Hydralazine 100 Mg Tab PO 100 mg BID SHI Administration Sodium Chloride 100 mls @ 999 mls/hr 12/13/21 23:05 Nacl 0.9% IV DOMINGO PRN Hypotension Morphine Sulfate 2 mg 12/13/21 11:14 12/13/21 22:10 Morphine 4 Mg/1 Ml Inj IV 2 mg Q4H PRN Administration Pain , Severe (7-10) Nifedipine 90 mg 12/14/21 10:00 12/16/21 10:30 Nifedipine Xl 90 Mg Tab PO 90 mg Q12HR SHI Administration Ondansetron HCl 4 mg 12/13/21 11:09 Ondansetron 4 Mg/2 Ml Inj IV Q8H PRN Nausea And Vomiting Oxycodone/Acetaminophen 1 tab 12/13/21 11:14 Oxycodone /Acetaminophen 5-325mg Tab PO Q6H PRN Pain, Moderate (4-6) Sodium Chloride 10 ml 12/13/21 22:00 12/16/21 10:31 Sodium Chloride 0.9% 10 Ml Flush Syringe IV 10 ml BID SHI Administration Sodium Chloride 10 ml 12/13/21 11:09 Sodium Chloride 0.9% 10 Ml Flush Syringe IV PRN PRN LINE FLUSH Valsartan 160 mg 12/14/21 10:00 12/16/21 10:35 Valsartan 160mg Tab PO 160 mg DAILY SHI Administration
[2021-12-17] MEDS: HEPARIN 5,000 UNIT/1 ML VIAL SUB-Q SCH ×3 (05:32→21:59)
[2021-12-17 07:58] LABS: Calcium 9.5 mg/dL (8.4-10.2)
--- NOTE | 2021-12-17 09:55 | Progress Note ---
Assessment and Plan - Patient Problems (1) Fluid overload Current Visit: Yes Status: Acute Plan to address problem: Much better following dialysis. Resume hemodialysis on a Friday, Friday and Friday schedule this week. (2) Pneumonia due to COVID-19 virus Current Visit: Yes Status: Acute Plan to address problem: Continue management by infectious disease specialist. IV/PO Dexamethasone Supplemental oxygen/Respiratory support as needed Proning as tolerated Prophylactic anticoagulation Trend inflammatory markers to assess disease progression and prognosis (3) ESRD (end stage renal disease) on dialysis Current Visit: Yes Status: Chronic Plan to address problem: Continue hemodialysis (4) Hypertensive chronic kidney disease with stage 5 chronic kidney disease or end stage renal disease Current Visit: Yes Status: Chronic Plan to address problem: Follow-up blood pressure on current medications (5) Anemia Current Visit: No Status: Acute Qualifiers: Anemia type: unspecified type Qualified Code(s): D64.9 - Anemia, unspecified Plan to address problem: Continue erythropoietin on dialysis and follow-up hemoglobin Subjective Date of service: 12/17/21 Principal diagnosis: End-stage renal disease with fluid overload, COVID-19 pneumonia Interval history: Patient seen lying in bed. He has no complaints today. He feels better. Shortness of breath improving. No nausea vomiting Objective - Exam Narrative Exam: Middle-aged -[place] Citizen male lying in bed in no acute distress HEENT: NCAT, pink conjunctiva, anicteric sclera Neck: Supple, no venous distention CVS: S1S2 RRR with no murmur, rub or gallop Chest: Clear to auscultation but breath sounds diminished Abdomen: Protuberant, soft, nontender, no organomegaly, bowel sounds are present Extremities: No edema Genitourinary deferred Skin warm and dry Neuro: Awake, alert no focal deficits - Vital Signs Vital signs: Vital Signs - 12hr 12/16/21 12/16/21 12/16/21 22:00 22:11 22:14 Temperature 98.6 F 98.6 F Pulse Rate 65 Respiratory 18 18 Rate Respiratory 18 Rate [Left Arm] Blood Pressure 137/76 Blood Pressure 137/76 [Right] O2 Sat by Pulse 100 100 Oximetry 12/16/21 12/17/21 12/17/21 22:16 04:00 05:44 Temperature 97.9 F Pulse Rate 65 62 62 Respiratory 18 Rate Respiratory Rate [Left Arm] Blood Pressure 137/76 102/55 Blood Pressure [Right] O2 Sat by Pulse 100 Oximetry 12/17/21 07:39 Temperature Pulse Rate Respiratory Rate Respiratory Rate [Left Arm] Blood Pressure Blood Pressure [Right] O2 Sat by Pulse 100 Oximetry - Lab 12/15/21 05:56 12/17/21 06:44 Most recent lab results Calcium 9.5 mg/dL (8.4-10.2) 12/17/21 06:44 Phosphorus 6.10 mg/dL (2.5-4.5) H D 12/17/21 06:44 Magnesium 2.80 mg/dL (1.7-2.3) H 12/17/21 06:44 Medications & Allergies - Medications Allergies/Adverse Reactions: Allergies No Known Allergies Allergy (Verified 12/13/21 06:34) Home Medications: Home Medications Medication Instructions Recorded Confirmed Last Taken Type B Complex 11/Folic/C/Biot/Zinc 1 each PO DAILY #30 01/05/21 Unknown Rx [Dialyvite with Zinc Tablet] Calcitriol 0.5 mcg PO DAILY #30 01/05/21 Unknown Rx Colace CAP 100 mg DAILY 01/05/21 01/05/21 01/03/21 History Dialysate Lo Jerald 1.5% Soln 2,000 ml IP Q4H bag 01/05/21 Unknown Rx [Dianeal Low Calcium W/1.5% Dextrose] NIFEdipine [Afeditab Cr] 60 mg PO BID #60 01/05/21 Unknown Rx Velphoro (Nf) 1,500 mg PO TID 01/05/21 01/05/21 01/03/21 08:00 History carvediloL [Coreg] 25 mg PO BID #60 01/05/21 Unknown Rx carvediloL [Coreg] 25 mg PO BID@0800,1700 tablet 01/05/21 Unknown Rx hydrALAZINE [Apresoline TAB] 100 mg PO BID #60 tab 01/05/21 Unknown Rx NIFEdipine XL [Procardia Xl] 60 mg PO BID #60 tablet 01/06/21 Unknown Rx Sevelamer Carbonate [Renvela] 2,400 mg PO AC tablet 01/06/21 Unknown Rx Active Medications: Generic Name Dose Route Start Last Admin Trade Name Freq PRN Reason Stop Dose Admin Acetaminophen 650 mg 12/13/21 11:09 Acetaminophen 325 Mg Tab PO Q4H PRN Pain MILD(1-3)/Fever >100.5/BARRERA Calcitriol 0.5 mcg 12/14/21 10:00 12/16/21 10:30 Calcitriol 0.5 Mcg Cap PO 0.5 mcg QDAY SHI Administration Carvedilol 25 mg 12/13/21 18:00 12/16/21 22:16 Carvedilol 25 Mg Tab PO 25 mg BID SHI Administration Dexamethasone 4 mg 12/14/21 15:00 12/16/21 10:30 Dexamethasone 4 Mg Tab PO 12/23/21 10:01 4 mg DAILY SHI Administration Heparin Sodium (Porcine) 5,000 unit 12/13/21 12:00 12/17/21 05:32 Heparin 5,000 Unit/1 Ml Vial SUB-Q 5,000 unit Q8HR SHI Administration Hydralazine HCl 100 mg 12/13/21 22:00 12/16/21 22:16 Hydralazine 100 Mg Tab PO 100 mg BID SHI Administration Sodium Chloride 100 mls @ 999 mls/hr 12/13/21 23:05 Nacl 0.9% IV DOMINGO PRN Hypotension Morphine Sulfate 2 mg 12/13/21 11:14 12/13/21 22:10 Morphine 4 Mg/1 Ml Inj IV 2 mg Q4H PRN Administration Pain , Severe (7-10) Nifedipine 90 mg 12/14/21 10:00 12/16/21 22:15 Nifedipine Xl 90 Mg Tab PO 90 mg Q12HR SHI Administration Ondansetron HCl 4 mg 12/13/21 11:09 Ondansetron 4 Mg/2 Ml Inj IV Q8H PRN Nausea And Vomiting Oxycodone/Acetaminophen 1 tab 12/13/21 11:14 Oxycodone /Acetaminophen 5-325mg Tab PO Q6H PRN Pain, Moderate (4-6) Sodium Chloride 10 ml 12/13/21 22:00 12/16/21 22:16 Sodium Chloride 0.9% 10 Ml Flush Syringe IV 10 ml BID SHI Administration Sodium Chloride 10 ml 12/13/21 11:09 Sodium Chloride 0.9% 10 Ml Flush Syringe IV PRN PRN LINE FLUSH Valsartan 160 mg 12/14/21 10:00 12/16/21 10:35 Valsartan 160mg Tab PO 160 mg DAILY SHI Administration
[2021-12-17] MEDS: CALCITRIOL 0.5 MCG CAP PO SCH (10:55)
[2021-12-17] MEDS: hydrALAZINE 100 MG TAB PO SCH ×2 (10:58→21:59)
[2021-12-17] MEDS: carvediloL 25 MG TAB PO SCH ×2 (10:58→21:59)
[2021-12-17] MEDS: DEXAMETHASONE 4 MG TAB PO SCH (10:58)
[2021-12-17] MEDS: VALSARTAN 160MG TAB PO SCH (10:59)
[2021-12-17] MEDS: NIFEdipine XL 90 MG TAB PO SCH ×2 (10:59→21:59)
--- NOTE | 2021-12-17 13:35 | Discharge Summary ---
Providers - Providers Date of Admission: 12/13/21 11:09 Attending physician: CELINA FOSTER 12/13/21 11:25 Consult to Physician [CONS] Routine Comment: Consulting Provider: SHAMEKA MAY Physician Instructions: Reason For Exam: ESRD on hemodialysis 12/15/21 07:55 Consult to Physician [CONS] Routine Comment: Consulting Provider: OLMAN FOREMAN Physician Instructions: Reason For Exam: COVID+ and hypoxic Primary care physician: HOLLY CHAVEZ Hospitalization Condition: Stable Disposition: 30 STILL A PATIENT Exam - Constitutional Vitals: Temp Pulse Resp BP Pulse Ox 97.9 F 61 18 117/64 100 12/17/21 05:44 12/17/21 10:59 12/17/21 05:44 12/17/21 10:59 12/17/21 07:39 Plan Follow up with: HOLLY CHAVEZ MD [Primary Care Provider] - 7 Days Prescriptions: hydrALAZINE [Apresoline TAB] 100 mg PO BID #60 tab carvediloL [Coreg] 25 mg PO BID #60 tablet Valsartan [Diovan] 160 mg PO DAILY #30 tablet Apixaban [Eliquis] 2.5 mg PO BID #60 AtorvaSTATin [Lipitor] 40 mg PO QHS #30 Prednisone [predniSONE 10 mg (6-Day Pack, 21 Tabs)] 10 mg PO .TAPER #1 NIFEdipine XL [Procardia Xl] 90 mg PO Q12HR #60 tablet Ascorbic Acid/Ascorbate Sodium [Vitamin C 500 mg Tablet Chew] 500 mg PO BID #20 Cholecalciferol Vit D3 [Vitamin D3 1,000 UNIT TAB] 1,000 unit PO QDAY #10 tablet Zinc Sulfate [Zinc] 220 mg PO DAILY #10
[2021-12-17] MEDS ORDERED: SODIUM CHLORIDE 0.9% 100 ML IV PRN (21:00)
[2021-12-18] MEDS: HEPARIN 5,000 UNIT/1 ML VIAL SUB-Q SCH ×2 (05:28→15:10)
--- NOTE | 2021-12-18 10:23 | Consultation ---
History of Present Illness - Reason for Consult Consult date: 12/18/21 COVID-19 Requesting physician: ANTONI LEONE - History of Present Illness The patient is a 46-year-old male with hypertension, ESRD on HD was admitted with shortness of breath and orthopnea. Upon evaluation in the ED, had significant hypoxia requiring BiPAP. Also had hypertensive emergency with blood pressure of 249/144 mmHg. Patient tested positive for COVID-19, hence infecti ous diseases was consulted. He has been afebrile. Patient was continued on dialysis, also initiated on steroids. Now weaned down to 2 L per nasal cannula. Labs on 12/15/2021 with WBC 10.7, platelets 174, D-dimer 1983, ferritin >2000, procalcitonin 1.75. Initial chest x-ray on admission showed bilateral airspace opacities. Repeat chest x-ray on 12/15/2021 with interval improvement. Review of Systems: reviewed in the chart, unable to obtain, minimize risk of transmission Past History Past Medical History: dialysis, ESRD, hypertension Past Surgical History: Other (Permacath placement) Social history: , lives with family, full code Family history: diabetes, hypertension Medications and Allergies Allergies Allergy/AdvReac Type Severity Reaction Status Date / Time No Known Allergies Allergy Verified 12/13/21 06:34 Home Medications Medication Instructions Recorded Confirmed Last Taken Type B Complex 11/Folic/C/Biot/Zinc 1 each PO DAILY #30 01/05/21 12/18/21 Unknown Rx [Dialyvite with Zinc Tablet] NIFEdipine [Afeditab Cr] 60 mg PO BID #60 01/05/21 12/18/21 Unknown Rx Velphoro (Nf) 1,500 mg PO TID 01/05/21 01/05/21 01/03/21 08:00 History carvediloL [Coreg] 25 mg PO BID #60 01/05/21 12/18/21 Unknown Rx hydrALAZINE [Apresoline TAB] 100 mg PO BID #60 tab 01/05/21 12/18/21 Unknown Rx Sevelamer Carbonate [Renvela] 2,400 mg PO AC tablet 01/06/21 12/18/21 Unknown Rx Ascorbic Acid/Ascorbate Sodium 500 mg PO BID #20 12/17/21 Unknown Rx [Vitamin C 500 mg Tablet Chew] Cholecalciferol Vit D3 [Vitamin D3 1,000 unit PO QDAY #10 tablet 12/17/21 Unknown Rx 1,000 UNIT TAB] Prednisone [predniSONE 10 mg 10 mg PO .TAPER #1 12/17/21 Unknown Rx (6-Day Pack, 21 Tabs)] Zinc Sulfate [Zinc] 220 mg PO DAILY #10 12/17/21 Unknown Rx AtorvaSTATin [Lipitor] 40 mg PO QHS 12/18/21 12/18/21 12/12/21 History Isosorbide Mononitrate [Isosorbide 60 mg PO QDAY 12/18/21 12/18/21 Unknown History Mononitrate ER] Warfarin [Coumadin] 5 mg PO QDAY 12/18/21 12/18/21 12/12/21 History Active Meds: Active Medications Acetaminophen (Acetaminophen 325 Mg Tab) 650 mg PO Q4H PRN PRN Reason: Pain MILD(1-3)/Fever >100.5/BARRERA Calcitriol (Calcitriol 0.5 Mcg Cap) 0.5 mcg PO QDAY [facility] Last Admin: 12/17/21 10:55 Dose: 0.5 mcg Carvedilol (Carvedilol 25 Mg Tab) 25 mg PO BID [facility] Last Admin: 12/17/21 21:59 Dose: 25 mg Dexamethasone (Dexamethasone 4 Mg Tab) 4 mg PO DAILY [facility] Stop: 12/23/21 10:01 Last Admin: 12/17/21 10:58 Dose: 4 mg Heparin Sodium (Porcine) (Heparin 5,000 Unit/1 Ml Vial) 5,000 unit SUB-Q Q8HR [facility] Last Admin: 12/18/21 05:28 Dose: Not Given Hydralazine HCl (Hydralazine 100 Mg Tab) 100 mg PO BID [facility] Last Admin: 12/17/21 21:59 Dose: 100 mg Sodium Chloride (Nacl 0.9%) 100 mls @ 999 mls/hr IV DOMINGO PRN PRN Reason: Hypotension Morphine Sulfate (Morphine 4 Mg/1 Ml Inj) 2 mg IV Q4H PRN PRN Reason: Pain , Severe (7-10) Last Admin: 12/13/21 22:10 Dose: 2 mg Nifedipine (Nifedipine Xl 90 Mg Tab) 90 mg PO Q12HR [facility] Last Admin: 12/17/21 21:59 Dose: 90 mg Ondansetron HCl (Ondansetron 4 Mg/2 Ml Inj) 4 mg IV Q8H PRN PRN Reason: Nausea And Vomiting Oxycodone/Acetaminophen (Oxycodone /Acetaminophen 5-325mg Tab) 1 tab PO Q6H PRN PRN Reason: Pain, Moderate (4-6) Sodium Chloride (Sodium Chloride 0.9% 10 Ml Flush Syringe) 10 ml IV BID [facility] Last Admin: 12/17/21 21:59 Dose: 10 ml Sodium Chloride (Sodium Chloride 0.9% 10 Ml Flush Syringe) 10 ml IV PRN PRN PRN Reason: LINE FLUSH Valsartan (Valsartan 160mg Tab) 160 mg PO DAILY [facility] Last Admin: 12/17/21 10:59 Dose: 160 mg Physical Examination - Physical Exam Narrative exam: Physical Exam (reviewed in chart to minimize risk of transmission) Constitutional: deferred Head, Ears, Nose: deferred Eyes: deferred Neck: deferred Oral: deferred Cardiovascular: deferred Respiratory: deferred GI: deferred Musculoskeletal: deferred Skin: deferred Hem/Lymphatic: deferred Psych: deferred Neurological: deferred - Constitutional Vitals: Vital Signs Temp Pulse Resp BP Pulse Ox 98.1 F 60 18 109/61 100 12/18/21 05:14 12/18/21 05:16 12/18/21 05:14 12/18/21 05:14 12/18/21 09:44 Temperature -Last 24 Hours Temperature 98.1 F Temperature 98.5 F Temperature 98.2 F Temperature 97.9 F Results - Labs CBC & Chem 7: 12/15/21 05:56 12/17/21 06:44 - Imaging and Cardiology Chest x-ray: report reviewed, image reviewed (improvement in airspace opacities) Assessment and Plan Cultures: SARS CoV2 PCR: Positive A/P: 46-year-old male with hypertension, ESRD on HD was admitted with shortness of breath and orthopnea: #COVID-19: Not a candidate for remdesivir due to ESRD. Continue steroids. #Acute hypoxic respiratory failure: Requiring BiPAP, now weaned to nasal cannula. Likely combination of pulmonary edema, hypertensive emergency and possibly COVID-19. proBNP on admission was >70,000. #ESRD on HD #Hypertensive emergency: Management per nephrology and IMS. Recs: Continue IV/PO Dexamethasone x 10 days Not a candidate for remdesivir due to ESRD No fever, procalcitonin elevation is probably related to renal failure Continue to wean oxygen, home oxygen evaluation prior to discharge Will sign off. Please call with questions or any clinical worsening. Dane Barcenas MD, FACP, [facility] O: [phone] F: [phone] C: [phone]
[2021-12-18] MEDS: DEXAMETHASONE 4 MG TAB PO SCH (10:28)
[2021-12-18] MEDS: CALCITRIOL 0.5 MCG CAP PO SCH (10:29)
[2021-12-18] MEDS: NIFEdipine XL 90 MG TAB PO SCH (10:29)
[2021-12-18] MEDS: VALSARTAN 160MG TAB PO SCH (10:29)
[2021-12-18] MEDS: carvediloL 25 MG TAB PO SCH (10:29)
[2021-12-18] MEDS: hydrALAZINE 100 MG TAB PO SCH (10:30)
--- NOTE | 2021-12-18 20:55 | Progress Note ---
Assessment and Plan - Patient Problems (1) Acute hypoxemic respiratory failure Status: Acute Plan to address problem: Patient symptoms resolved. Patient weaned off supplemental oxygen, supportive care. Out of bed to chair, ambulate around room as needed. (2) Coronavirus infection Status: Acute Plan to address problem: Patient symptoms resolved. Supportive care, continue medical management. (3) End stage renal disease Status: Acute Plan to address problem: Dialysis as per renal team. Strict I's/O, monitor urine output every shift, a void nephrotoxic agents. (4) Malnutrition Status: Acute Qualifiers: Malnutrition type: protein-calorie malnutrition Plan to address problem: Encourage increased protein intake, dietary supplementation. (5) DVT prophylaxis Status: Acute Plan to address problem: SCD to bilateral lower extremities while in bed, prophylactic anticoagulation. (6) Advance care planning Status: Acute Plan to address problem: Disease education done, care plan discussed, diagnoses discussed, prognosis discussed, patient is full code, patient acknowledges understanding and agreement with care plan, +30 minutes. (7) Preventative health care Status: Acute Plan to address problem: Patient counseled regarding medication compliance, risk factor reduction, follow-up with primary care physician as outpatient for all age and risk factor appropriate screening test. +30 minutes. History Interval history: 46 YO Male HD #5 with Coronavirus infection complicated by acute hypoxemic respiratory failure, end-stage renal disease, hypertensive emergency, lactic acidosis. Patient convalesced well overnight. Patient resting comfortably on room air. No reported no acute events. Patient denies pain. Hospitalist Physical - Constitutional Vitals: Temp Pulse Resp BP Pulse Ox 98.2 F 72 17 118/43 100 12/18/21 11:35 12/18/21 14:00 12/18/21 11:35 12/18/21 14:00 12/18/21 11:35 General appearance: Present: no acute distress, well-nourished - EENT Eyes: Present: PERRL ENT: hearing intact - Neck Neck: Present: supple - Respiratory Respiratory effort: normal Respiratory: bilateral: diminished - Cardiovascular Rhythm: regular Heart Sounds: Present: S1 & S2 - Extremities Extremities: no ischemia Peripheral Pulses: within normal limits - Abdominal General gastrointestinal: soft, non-tender, non-distended - Integumentary Integumentary: Present: clear, dry - Psychiatric Psychiatric: appropriate mood/affect, cooperative - Neurologic Neurologic: CNII-XII intact Results - Labs CBC & Chem 7: 12/15/21 05:56 12/17/21 06:44 Labs: Laboratory Last Values WBC 10.7 K/mm3 (4.5-11.0) 12/15/21 05:56 RBC 4.30 M/mm3 (3.65-5.03) 12/15/21 05:56 Hgb 11.2 gm/dl (11.8-15.2) L 12/15/21 05:56 Hct 34.9 % (35.5-45.6) L 12/15/21 05:56 MCV 81 fl (84-94) L 12/15/21 05:56 MCH 26 pg (28-32) L 12/15/21 05:56 MCHC 32 % (32-34) 12/15/21 05:56 RDW 22.7 % (13.2-15.2) H 12/15/21 05:56 Plt Count 174 K/mm3 (140-440) 12/15/21 05:56 Lymph % (Auto) 7.7 % (13.4-35.0) L 12/14/21 04:56 [place] % (Auto) 4.0 % (0.0-7.3) 12/14/21 04:56 Eos % (Auto) 0.0 % (0.0-4.3) 12/14/21 04:56 Baso % (Auto) Cab Starter 12/15/21 05:56 Lymph # (Auto) 1.2 K/mm3 (1.2-5.4) 12/14/21 04:56 [place] # (Auto) 0.7 K/mm3 (0.0-0.8) 12/14/21 04:56 Eos # (Auto) 0.0 K/mm3 (0.0-0.4) 12/14/21 04:56 Baso # (Auto) 0.0 K/mm3 (0.0-0.1) 12/14/21 04:56 Add Manual Diff Complete 12/15/21 05:56 Total Counted 100 12/15/21 05:56 Seg Neutrophils % 88.1 % (40.0-70.0) H 12/14/21 04:56 Seg Neuts % (Manual) 85.0 % (40.0-70.0) H 12/15/21 05:56 Band Neutrophils % 0 % 12/15/21 05:56 Lymphocytes % (Manual) 11.0 % (13.4-35.0) L 12/15/21 05:56 Reactive Lymphs % (Man) 0 % 12/15/21 05:56 Monocytes % (Manual) 2.0 % (0.0-7.3) 12/15/21 05:56 Eosinophils % (Manual) 2.0 % (0.0-4.3) 12/15/21 05:56 Basophils % (Manual) 0 % (0.0-1.8) 12/15/21 05:56 Metamyelocytes % 0 % 12/15/21 05:56 Myelocytes % 0 % 12/15/21 05:56 Promyelocytes % 0 % 12/15/21 05:56 Blast Cells % 0 % 12/15/21 05:56 Nucleated RBC % Not Reportable 12/15/21 05:56 Seg Neutrophils # 14.3 K/mm3 (1.8-7.7) H 12/14/21 04:56 Seg Neutrophils # Man 9.1 K/mm3 (1.8-7.7) H 12/15/21 05:56 Band Neutrophils # 0.0 K/mm3 12/15/21 05:56 Lymphocytes # (Manual) 1.2 K/mm3 (1.2-5.4) 12/15/21 05:56 Abs React Lymphs (Man) 0.0 K/mm3 12/15/21 05:56 Monocytes # (Manual) 0.2 K/mm3 (0.0-0.8) 12/15/21 05:56 Eosinophils # (Manual) 0.2 K/mm3 (0.0-0.4) 12/15/21 05:56 Basophils # (Manual) 0.0 K/mm3 (0.0-0.1) 12/15/21 05:56 Metamyelocytes # 0.0 K/mm3 12/15/21 05:56 Myelocytes # 0.0 K/mm3 12/15/21 05:56 Promyelocytes # 0.0 K/mm3 12/15/21 05:56 Blast Cells # 0.0 K/mm3 12/15/21 05:56 WBC Morphology Not Reportable 12/15/21 05:56 Hypersegmented Neuts Not Reportable 12/15/21 05:56 Hyposegmented Neuts Not Reportable 12/15/21 05:56 Hypogranular Neuts Not Reportable 12/15/21 05:56 Smudge Cells Not Reportable 12/15/21 05:56 Toxic Granulation Not Reportable 12/15/21 05:56 Toxic Vacuolation Not Reportable 12/15/21 05:56 Dohle Bodies Not Reportable 12/15/21 05:56 Pelger-Huet Anomaly Not Reportable 12/15/21 05:56 Christine Rods Not Reportable 12/15/21 05:56 Platelet Estimate Consistent w auto 12/15/21 05:56 Clumped Platelets Not Reportable 12/15/21 05:56 Plt Clumps, EDTA Not Reportable 12/15/21 05:56 Large Platelets Not Reportable 12/15/21 05:56 Giant Platelets Not Reportable 12/15/21 05:56 Platelet Satelliting Not Reportable 12/15/21 05:56 Plt Morphology Comment Not Reportable 12/15/21 05:56 RBC Morphology Not Reportable 12/15/21 05:56 Dimorphic RBCs Not Reportable 12/15/21 05:56 Polychromasia Not Reportable 12/15/21 05:56 Hypochromasia Not Reportable 12/15/21 05:56 Poikilocytosis 1+ 12/15/21 05:56 Anisocytosis 1+ 12/15/21 05:56 Microcytosis Few 12/15/21 05:56 Macrocytosis Not Reportable 12/15/21 05:56 Spherocytes Not Reportable 12/15/21 05:56 Pappenheimer Bodies Not Reportable 12/15/21 05:56 Sickle Cells Not Reportable 12/15/21 05:56 Target Cells Not Reportable 12/15/21 05:56 Tear Drop Cells Few 12/15/21 05:56 Ovalocytes Few 12/15/21 05:56 Helmet Cells Not Reportable 12/15/21 05:56 [place] Bodies Not Reportable 12/15/21 05:56 [place] Rings Not Reportable 12/15/21 05:56 Nicolle Cells Not Reportable 12/15/21 05:56 Bite Cells Not Reportable 12/15/21 05:56 Crenated Cell Not Reportable 12/15/21 05:56 Elliptocytes Few 12/15/21 05:56 Acanthocytes (Spur) Few 12/15/21 05:56 Rouleaux Not Reportable 12/15/21 05:56 Hemoglobin C Crystals Not Reportable 12/15/21 05:56 Schistocytes Not Reportable 12/15/21 05:56 Malaria parasites Not Reportable 12/15/21 05:56 Reyes Bodies Not Reportable 12/15/21 05:56 Hem Pathologist Commnt No 12/15/21 05:56 D-Dimer 1983.44 ng/mlDDU (0-234) H 12/13/21 11:44 Sodium 136 mmol/L (137-145) L 12/17/21 06:44 Potassium 5.2 mmol/L (3.6-5.0) H 12/17/21 06:44 Chloride 91.4 mmol/L (98-107) L 12/17/21 06:44 Carbon Dioxide 24 mmol/L (22-30) 12/17/21 06:44 Anion Gap 26 mmol/L 12/17/21 06:44 BUN 89 mg/dL (9-20) H 12/17/21 06:44 Creatinine 13.0 mg/dL (0.8-1.3) H 12/17/21 06:44 Estimated GFR 5 ml/min 12/17/21 06:44 BUN/Creatinine Ratio 7 % 12/17/21 06:44 Glucose 106 mg/dL (75-100) H 12/17/21 06:44 Lactic Acid 1.40 mmol/L (0.7-2.0) 12/14/21 08:26 Calcium 9.5 mg/dL (8.4-10.2) 12/17/21 06:44 Phosphorus 6.10 mg/dL (2.5-4.5) H D 12/17/21 06:44 Magnesium 2.80 mg/dL (1.7-2.3) H 12/17/21 06:44 Iron 193 ug/dL (49-181) H 12/14/21 13:38 TIBC 209 mcg/dL (250-450) L 12/14/21 13:38 Ferritin > 2000.0 ng/mL (30.0-300.0) H 12/14/21 13:38 Total Bilirubin 0.80 mg/dL (0.1-1.2) 12/13/21 06:58 AST 89 units/L (5-40) H 12/13/21 06:58 ALT 64 units/L (7-56) H 12/13/21 06:58 Alkaline Phosphatase 117 units/L (35-129) 12/13/21 06:58 NT-Pro-B Natriuret Pep > 81470 pg/mL (0-450) H 12/13/21 11:44 Total Protein 7.8 g/dL (6.3-8.2) 12/13/21 06:58 Albumin 4.9 g/dL (3.9-5) 12/13/21 06:58 Albumin/Globulin Ratio 1.7 % 12/13/21 06:58 Procalcitonin 1.75 ng/mL (<0.15) 12/13/21 11:44 Coronavirus (PCR) Positive (Negative) A 12/14/21 09:07 Hepatitis A IgM Ab Non-reactive (NonReactive) 12/13/21 11:44 Hep Bs Antigen Non-reactive (Negative) 12/13/21 11:44 Hep B Core IgM Ab Non-reactive (NonReactive) 12/13/21 11:44 Hepatitis C Antibody Non-reactive (NonReactive) 12/13/21 11:44 [place]/IV: Voiding Method Toilet Nutrition/Malnutrition Assess - Dietary Evaluation Nutrition/Malnutrition Findings: Nutrition Notes Start: 12/18/21 16:25 Freq: Status: Discharge Protocol: Document 12/18/21 16:25 MARVEL (Rec: 12/18/21 17:00 MARVEL [id number]) Nutrition Notes Need for Assessment generated from: MD Order,consulting psychologist,MST Initial or Follow up Assessment Current Diagnosis CKD (stage V CKD),Hypertension ,Respiratory Failure, Malnutrition Other Pertinent Diagnosis COVID-19/Pneumonia, ESRD+HD, Pulmonary Edema, Lactic Acidosis, Anemia,... Current Diet Renal Diet (since D 12/13). Labs/Tests 12/17: Na 136, K 5.2, Cl 91.4, BUN 89, Crea 13.0, Glu 106, Phos 6.1, Mg 2.8. Pertinent Medications 12/18: Nutritionally unremarkable. Height 5 ft 11 in Weight 65.4 kg [place] Body Weight (kg) 78.18 BMI 20.1 Intake Prior to Admission Poor Weight change and time frame Pt states having, unintentionally, loss between 2 and 13 lb recently. Weight Status Appropriate Subjective/Other Information RD consult for risk of malnutrition and dietary supplementation assessments. Pt's PO intake of meals has been Good (100%) and well tolerated, according to ADL notes. Pt is now on Room Air, O2 saturation @ 98%, according to Physical Assessment History notes. Pt shows no signs of concern for risk of malnutrition at the time, according to Physical Assessment History notes. I will not prescribe dietary supplementation at this time, since Pt's energy/protein needs, are satisfied with PO intake of meals. Percent of energy/protein needs met: Prescribed Renal Diet provides for energy/protein needs (2, 072 Kcal/77 g) during LOS. Burn Absent Trauma Absent GI Symptoms None Food Allergy No Skin Integrity/Comment Assessment WNL. Current % PO Good (75-100%) Minimum of two criteria No Interpretation of Weight Loss (non- 1-2% in 1 week severe) Fluid Accumulation N/A Reduced Glass Setter Strength N/A (non-severe) Protein-Calorie Malnutrition N\A #1 Nutrition Diagnosis No nutrition diagnosis at this time Is patient on ventilator? No Is Patient Ambulatory and/or Out of Bed Yes REE-([facility]-ambulatory/OOB) [ [id number]] Calculation Used for Recommendations [facility] Additional Notes Protein: >1.2 g/Kg ABW; >78 g/ day. Fluids: 1 ml/Kcal, or as per MD. Nutrition Intervention Change Diet Order: Continue Renal Diet. Follow-Up By: 12/25/21 Additional Comments Continue monitoring food tolerance, %PO intake of meals , and BM.
--- NOTE | 2021-12-18 20:55 | Discharge Summary ---
Providers - Providers Date of Admission: 12/13/21 11:09 Attending physician: CELINA FOSTER 12/13/21 11:25 Consult to Physician [CONS] Routine Comment: Consulting Provider: SHAMEKA MAY Physician Instructions: Reason For Exam: ESRD on hemodialysis 12/15/21 07:55 Consult to Physician [CONS] Routine Comment: Consulting Provider: OLMAN FOREMAN Physician Instructions: Reason For Exam: COVID+ and hypoxic Primary care physician: HOLLY CHAVEZ Hospitalization Condition: Stable Disposition: 01 HOME / SELF CARE / HOMELESS Exam - Constitutional Vitals: Temp Pulse Resp BP Pulse Ox 98.2 F 72 17 118/43 100 12/18/21 11:35 12/18/21 14:00 12/18/21 11:35 12/18/21 14:00 12/18/21 11:35 Plan Follow up with: HOLLY CHAVEZ MD [Primary Care Provider] - 7 Days Prescriptions: hydrALAZINE [Apresoline TAB] 100 mg PO BID #60 tab carvediloL [Coreg] 25 mg PO BID #60 tablet Valsartan [Diovan] 160 mg PO DAILY #30 tablet Apixaban [Eliquis] 2.5 mg PO BID #60 AtorvaSTATin [Lipitor] 40 mg PO QHS #30 Prednisone [predniSONE 10 mg (6-Day Pack, 21 Tabs)] 10 mg PO .TAPER #1 NIFEdipine XL [Procardia Xl] 90 mg PO Q12HR #60 tablet Ascorbic Acid/Ascorbate Sodium [Vitamin C 500 mg Tablet Chew] 500 mg PO BID #20 Cholecalciferol Vit D3 [Vitamin D3 1,000 UNIT TAB] 1,000 unit PO QDAY #10 tablet Zinc Sulfate [Zinc] 220 mg PO DAILY #10
[2021-12-18 21:14] VITALS: BP 118/62
== END 2021-12-18 17:03 | disposition home or self-care (01) | DRG 177 ==
LOC: ED 05:32 → 4A 11:09 → 3A 12-14 15:55
PROVIDERS: ADMIT Student in an Organized Health Care Education/Training Program; ATTEND Internal Medicine
PROC: 5A1D70Z Performance of Urinary Filtration, Intermittent, Less than 6 Hours Per Day (ICD-10-PCS; principal; 2021-12-13)
PROC: 5A09357 Assistance with Respiratory Ventilation, Less than 24 Consecutive Hours, Continuous Positive Airway Pressure (ICD-10-PCS; 2021-12-13)
PROC: 5A1D70Z Performance of Urinary Filtration, Intermittent, Less than 6 Hours Per Day (ICD-10-PCS; 2021-12-14)
PROC: 5A1D70Z Performance of Urinary Filtration, Intermittent, Less than 6 Hours Per Day (ICD-10-PCS; 2021-12-18)
DX: U07.1 COVID-19 (principal); J96.01 Acute respiratory failure with hypoxia; J81.0 Acute pulmonary edema; N18.6 End stage renal disease; E43 Unspecified severe protein-calorie malnutrition; I12.0 Hypertensive chronic kidney disease with stage 5 chronic kidney disease or end stage renal disease; J12.82 Pneumonia due to coronavirus disease 2019; I16.1 Hypertensive emergency; E87.2 Acidosis; D50.9 Iron deficiency anemia, unspecified; E83.52 Hypercalcemia; D63.1 Anemia in chronic kidney disease; N25.81 Secondary hyperparathyroidism of renal origin; J90 Pleural effusion, not elsewhere classified; Z68.20 Body mass index [BMI] 20.0-20.9, adult; I25.2 Old myocardial infarction; Z83.3 Family history of diabetes mellitus; Z82.49 Family history of ischemic heart disease and other diseases of the circulatory system
CPT/HCPCS: 36415; 71045; 80048; 80053; 80074; 82140; 82728; 83550; 83735; 83880; 84100; 84145; 85007; 85025; 85379; 93005; 94760; G0378; J0456; J0696; J1644; J1940; J2270; J7040; J8540; U0003